=== PATIENT | female | born 1930 | race Caucasian/White ===

== ENCOUNTER 2017-08-12 17:34 | Emergency (ER) | payer MEDICARE ==
[~2017-08-12 17:34] MED LIST: AMIT25TA20 PO; AMLO5TAB96 PO; CALC600T34 PO; COZA100T PO; DIGO0.25 PO; FURO1TAB93 PO; HYDR-3533 PO; INSU100V2 SQ; NIAC500 PO; NOVONP2 SQ; OMEP20TA39 PO; PROBCAP4 PO; PROM25SU8 PO; RIVA20 PO; TAB-TAB PO
[2017-08-12 17:36] VITALS: BP 133/63; PULSE 66; RESP 18; TEMP 97.6; O2SAT 97
[2017-08-12] MEDS ORDERED: ROSU1TAB10 PO (17:45)
[2017-08-12] MEDS ORDERED: NOVONP2 SQ (17:45)
[2017-08-12] MEDS ORDERED: AMIT25TA9 PO (17:45)
[2017-08-12] MEDS ORDERED: LOSA50TA PO (17:45)
[2017-08-12] MEDS ORDERED: XARE15TA PO (17:45)
[2017-08-12] MEDS ORDERED: FURO20TA PO (17:45)
[2017-08-12] MEDS ORDERED: ASPI81CH7 CHEW (17:45)
[2017-08-12] MEDS ORDERED: FLUT1INH INH (17:45)
[2017-08-12 17:58] VITALS: BP 138/58; PULSE 87; RESP 18; O2SAT 100
[2017-08-12 18:06] VITALS: O2SAT 100
[2017-08-12] MEDS ORDERED: SODIUM CHLORIDE 0.9% FLUSH 10 ML FLUSH IV FLUSH PRN (18:15)
[2017-08-12] MEDS ORDERED: ONDANSETRON HCL 4 MG/2 ML VIAL IVP ONE (18:15)
[2017-08-12] MEDS ORDERED: DICYCLOMINE HCL 20 MG/2 ML VIAL IM ONE (18:15)
[2017-08-12 18:20] LABS: AUTOMATED NEUTROPHIL # 18.2 TH/MM3 (1.8-7.7); BASOPHIL # 0.2 TH/MM3 (0-0.2); BASOPHIL % 0.9 % (0.0-2.0); EOSINOPHIL # 0.2 TH/MM3 (0-0.4); HEMATOCRIT 28.5 % (35.0-46.0); LYMPH % 4.1 % (9.0-44.0); LYMPHOCYTE # 0.8 TH/MM3 (1.0-4.8); MEAN CELL VOLUME 86.5 FL (80.0-100.0); MEAN CORPUSCULAR HEMOGLOBIN 27.4 PG (27.0-34.0); MEAN CORPUSCULAR HGB CONC 31.7 % (32.0-36.0); MONO % 5.6 % (0.0-8.0); NEUT % 88.4 % (16.0-70.0); PLATELET COUNT 278 TH/MM3 (150-450); RED BLOOD COUNT 3.29 MIL/MM3 (4.00-5.30); RED CELL DISTRIBUTION WIDTH 15.6 % (11.6-17.2); WHITE BLOOD COUNT 20.6 TH/MM3 (4.0-11.0)
[2017-08-12 18:23] LABS: HEMO FLAGS DIFF FINAL
[2017-08-12 18:26] LABS: CHLORIDE 105 MEQ/L (98-107); POTASSIUM 3.8 MEQ/L (3.5-5.1); SODIUM (NA) 138 MEQ/L (136-145)
[2017-08-12 18:29] LABS: ANION GAP 10 MEQ/L (5-15); BICARBONATE 23.3 MEQ/L (21.0-32.0); BLOOD UREA NITROGEN 40 MG/DL (7-18)
[2017-08-12 18:32] LABS: ALT (GPT) 27 U/L (10-53); AST (GOT) 33 U/L (15-37); GLOMERULAR FILTRATION RATE 30 ML/MIN (>89)
[2017-08-12 18:34] LABS: TOTAL BILIRUBIN ADULT 0.4 MG/DL (0.2-1.0)
[2017-08-12 18:35] LABS: ALKALINE PHOSPHATASE 64 U/L (45-117)
[2017-08-12] MEDS ORDERED: METR-1 PO (18:50)
--- NOTE | 2017-08-12 18:51 | PD ---
HPI Chief Complaint: GI Complaint Time Seen by Provider: 18:01 Travel History International Travel<30 days: No Contact w/Intl Traveler<30days: No Traveled to known affect area: No History of Present Illness HPI The patient is 87 and arrives with nausea vomiting and diarrhea over the past 4 hours or so. The daughter provides some of the history and notes a history of C. difficile colitis and believes it might be similar. The patient denies fever. In the ER she denies abdominal pain shortness of breath chest pain. Diet has been normal lately. The patient underwent a aortic valve replacement about 6 weeks ago. Couple weeks thereafter she suffered a stroke and has had short-term memory loss since. PFSH Past Medical History Asthma: No Atrial Fibrillation: Yes Autoimmune Disease: No Blood Disorders: No Anxiety: No Depression: No Heart Rhythm Problems: Yes (A-FIB) Cancer: No Cardiomyopathy: Yes Cardiovascular Problems: Yes (A-FIB) High Cholesterol: Yes (HAD RHABDO) Chest Pain: No Congestive Heart Failure: Yes COPD: No Cerebrovascular Accident: Yes (R SIDED WEAKNESS) Diabetes: Yes (INSULIN ONLY) Diminished Hearing: No Endocrine: Yes GERD: No Genitourinary: Yes Headaches: No Hepatitis: No Hiatal Hernia: No Hypertension: Yes Immune Disorder: No Musculoskeletal: No Neurologic: Yes Psychiatric: No Reproductive: No Respiratory: No Migraines: No Myocardial Infarction: No Renal Failure: Yes Seizures: No Ulcer: No ?: Not : 3 Para: 3 Past Surgical History Abdominal Surgery: No Appendectomy: No Cardiac Surgery: No Cholecystectomy: No Endocrine Surgery: No Genitourinary Surgery: No Gynecologic Surgery: No Hysterectomy: Yes Thoracic Surgery: No Other Surgery: Yes (CYST REMOVAL) Social History Alcohol Use: Yes (OCC) Tobacco Use: No Substance Use: No Allergies-Medications (Allergen,Severity, Reaction): Coded Allergies: No Known Allergies (Verified Adverse Reaction, Unknown, 08/12/17) Reported Meds & Prescriptions Reported Meds & Active Scripts Active Flagyl (Metronidazole) 500 Mg Tab 500 Mg PO TID 14 Days Reported Rosuvastatin (Rosuvastatin Calcium) 40 Mg Tab 40 Mg PO DAILY Breo Ellipta Inh (Fluticasone/Vilanterol) 100-25 Mcg/Act Inh 1 Puff INH DAILY Use daily at the same time. Amitriptyline (Amitriptyline HCl) 25 Mg Tab 25 Mg PO HS Xarelto (Rivaroxaban) 15 Mg Tab 15 Mg PO DAILY Aspirin Children's (Aspirin) 81 Mg Chew 162 Mg CHEW DAILY Losartan (Losartan Potassium) 50 Mg Tab 50 Mg PO DAILY Novolin N Inj (Insulin Human NPH) 1,000 Unit/10 Ml Vial 36 Units SQ BID Furosemide 20 Mg Tab 20 Mg PO BID Review of Systems Except as stated in HPI: all other systems reviewed are Neg General / Constitutional: No: Fever Gastrointestinal: Positive: Nausea, Vomiting, Diarrhea Physical Exam Narrative GENERAL: 87-year-old female well-nourished well-developed mild distress SKIN: Focused skin assessment warm/dry. HEAD: Atraumatic. Normocephalic. EYES: Pupils equal and round. No scleral icterus. No injection or drainage. ENT: No nasal bleeding or discharge. Mucous membranes pink and moist. NECK: Trachea midline. No JVD. CARDIOVASCULAR: Regular rate and rhythm. No murmur appreciated. RESPIRATORY: No accessory muscle use. Clear to auscultation. Breath sounds equal bilaterally. GASTROINTESTINAL: Soft. No focus of tenderness. MUSCULOSKELETAL: No obvious deformities. No clubbing. No cyanosis. No edema. NEUROLOGICAL: Awake and alert. No obvious cranial nerve deficits. Motor grossly within normal limits. Normal speech. PSYCHIATRIC: Appropriate mood and affect; insight and judgment normal. Data Data Last Documented VS Vital Signs Date Time Temp Pulse Resp B/P (MAP) Pulse Ox O2 Delivery O2 Flow Rate FiO2 08/12/17 18:06 100 Nasal Cannula 2.00 08/12/17 17:58 87 18 08/12/17 17:36 97.6 Orders Orders Complete Blood Count With Diff (08/12/17 18:01) Comprehensive Metabolic Panel (08/12/17 18:01) Urinalysis - C+S If Indicated (08/12/17 18:01) Iv Access Insert/Monitor (08/12/17 18:01) Ecg Monitoring (08/12/17 18:01) Oximetry (08/12/17 18:01) Ondansetron Inj (Zofran Inj) (08/12/17 18:15) Sodium Chloride 0.9% Flush (Ns Flush) (08/12/17 18:15) Dicyclomine Inj (Bentyl Inj) (08/12/17 18:15) Ed Discharge Order (08/12/17 19:04) Labs Laboratory Tests Test 08/12/17 18:11 White Blood Count 20.6 TH/MM3 Red Blood Count 3.29 MIL/MM3 Hemoglobin 9.0 GM/DL Hematocrit 28.5 % Mean Corpuscular Volume 86.5 FL Mean Corpuscular Hemoglobin 27.4 PG Mean Corpuscular Hemoglobin Concent 31.7 % Red Cell Distribution Width 15.6 % Platelet Count 278 TH/MM3 Mean Platelet Volume 6.9 FL Neutrophils (%) (Auto) 88.4 % Lymphocytes (%) (Auto) 4.1 % Monocytes (%) (Auto) 5.6 % Eosinophils (%) (Auto) 1.0 % Basophils (%) (Auto) 0.9 % Neutrophils # (Auto) 18.2 TH/MM3 Lymphocytes # (Auto) 0.8 TH/MM3 Monocytes # (Auto) 1.2 TH/MM3 Eosinophils # (Auto) 0.2 TH/MM3 Basophils # (Auto) 0.2 TH/MM3 CBC Comment DIFF FINAL Differential Comment Blood Urea Nitrogen 40 MG/DL Creatinine 1.60 MG/DL Random Glucose 99 MG/DL Total Protein 7.2 GM/DL Albumin 3.5 GM/DL Calcium Level 8.3 MG/DL Alkaline Phosphatase 64 U/L Aspartate Amino Transf (AST/SGOT) 33 U/L Alanine Aminotransferase (ALT/SGPT) 27 U/L Total Bilirubin 0.4 MG/DL Sodium Level 138 MEQ/L Potassium Level 3.8 MEQ/L Chloride Level 105 MEQ/L Carbon Dioxide Level 23.3 MEQ/L Anion Gap 10 MEQ/L Estimat Glomerular Filtration Rate 30 ML/MIN MDM Medical Decision Making Medical Screen Exam Complete: Yes Emergency Medical Condition: Yes Medical Record Reviewed: Yes Differential Diagnosis Gastritis, pancreatitis, appendicitis, acute cholecystitis, ascending cholangitis, AAA, perforated viscous, mesenteric ischemia, hepatitis, cystitis, hydronephrosis/hydroureter/nephroureter calculus, mesenteric adenitis, biliary colic Narrative Course CBC & BMP Diagram 08/12/17 18:11 Total Protein 7.2, Albumin 3.5, Calcium Level 8.3 L, Alkaline Phosphatase 64, Aspartate Amino Transf (AST/SGOT) 33, Alanine Aminotransferase (ALT/SGPT) 27, Total Bilirubin 0.4 The patient appears really quite well. She prefers to go home and I think it is both safe in preferable to send the patient home. The patient could reflect a C. difficile colitis type picture however with a soft and nontender abdomen in the patient tolerating oral hydration without difficulty a trial of oral Flagyl is perfectly reasonable. We'll provide a course of Flagyl for 2 weeks. We discussed return precautions and the patient verbalized understanding along with and along with the patient's daughter. Diagnosis Primary Impression: Diarrhea Qualified Codes: R19.7 - Diarrhea, unspecified Referrals: Primary Care Physician call for appointment Additional Instructions: PLEASE FOLLOW UP WITH DR SMITH EARLY NEXT WEEK Med/Other Pt SpecificInfo: Prescription(s) given Scripts Metronidazole (Flagyl) 500 Mg Tab 500 MG PO TID for Infection for 14 Days, TAB 0 Refills Prov: Thierry Gamboa MD 08/12/17 Disposition: 01 DISCHARGE HOME Condition: Stable Thierry Gamboa MD Aug 12, 2017 18:51
[2017-08-12 19:00] VITALS: BP 144/59; PULSE 86; RESP 18; O2SAT 99
[2017-08-12] MEDS ORDERED: metroNIDAZOLE 500 MG TAB PO ONE (19:15)
== END 2017-08-12 19:16 | disposition home or self-care (01) ==
LOC: PHED 17:34
DX: R19.7 Diarrhea, unspecified (principal); E11.9 Type 2 diabetes mellitus without complications; E78.00 Pure hypercholesterolemia, unspecified; I11.0 Hypertensive heart disease with heart failure; I50.9 Heart failure, unspecified; I48.91 Unspecified atrial fibrillation; Z79.01 Long term (current) use of anticoagulants; Z95.2 Presence of prosthetic heart valve
CPT/HCPCS: 80053; 85025; 96372; 96374; 99284; J0500; J2405

== ENCOUNTER 2017-10-08 05:19 | Inpatient (IN) | payer MEDICARE ==
[2017-10-08] VITALS (37 sets, daily range): BP systolic 100–142; BP diastolic 47–76; PULSE 78–98; RESP 9–41; TEMP 98.4–100.2; O2SAT 85–99
[~2017-10-08] VITALS: Ht 165.1 cm; Wt 78.8 kg
[~2017-10-08 05:19] MED LIST changes: -AMIT25TA20 PO; +AMIT25TA9 PO; -AMLO5TAB96 PO; +ASPI81CH7 CHEW; -CALC600T34 PO; -COZA100T PO; -DIGO0.25 PO; +FLUT1INH INH; -FURO1TAB93 PO; +FURO20TA PO; -HYDR-3533 PO; -INSU100V2 SQ; +LOSA50TA PO; +METR-1 PO; -NIAC500 PO; -OMEP20TA39 PO; -PROBCAP4 PO; -PROM25SU8 PO; -RIVA20 PO; +ROSU1TAB10 PO; -TAB-TAB PO; +XARE15TA PO
[2017-10-08] MEDS ORDERED: CARV12.52 PO (05:31)
[2017-10-08] MEDS ORDERED: APIX2.5T PO (05:31)
[2017-10-08] MEDS ORDERED: VITA250T3 PO (05:32)
[2017-10-08] MEDS ORDERED: SODIUM CHLORIDE 0.9% FLUSH 10 ML FLUSH IVF PRN (05:45)
[2017-10-08] MEDS ORDERED: SODIUM CHLOR 0.9% 1000 ML INJ 1,000 ML IV ONE ×2 (05:45→06:30)
[2017-10-08] MEDS ORDERED: ONDANSETRON HCL 4 MG/2 ML VIAL IV PUSH ONE ×2 (05:45)
[2017-10-08 05:58] LABS: AUTOMATED NEUTROPHIL # 23.3 TH/MM3 (1.8-7.7); BASOPHIL # 0.6 TH/MM3 (0-0.2); BASOPHIL % 2.3 % (0.0-2.0); EOSINOPHIL % 0.1 % (0.0-4.0); HEMOGLOBIN 10.9 GM/DL (11.6-15.3); LYMPH % 3.2 % (9.0-44.0); LYMPHOCYTE # 0.9 TH/MM3 (1.0-4.8); MEAN CELL VOLUME 78.6 FL (80.0-100.0); MEAN CORPUSCULAR HEMOGLOBIN 24.5 PG (27.0-34.0); MEAN CORPUSCULAR HGB CONC 31.2 % (32.0-36.0); MEAN PLATELET VOLUME 7.4 FL (7.0-11.0); MONO % 7.9 % (0.0-8.0); MONOCYTE # 2.1 TH/MM3 (0-0.9); NEUT % 86.5 % (16.0-70.0); PLATELET COUNT 288 TH/MM3 (150-450); RED BLOOD COUNT 4.46 MIL/MM3 (4.00-5.30); RED CELL DISTRIBUTION WIDTH 17.9 % (11.6-17.2); WHITE BLOOD COUNT 26.9 TH/MM3 (4.0-11.0)
--- NOTE | 2017-10-08 06:01 | PD ---
HPI Chief Complaint: GI Complaint Time Seen by Provider: 05:37 Travel History International Travel<30 days: No Contact w/Intl Traveler<30days: No Traveled to known affect area: No History of Present Illness HPI 87-year-old female presents to the emergency department by private Transportation the care of family for generalized weakness nausea and diarrhea. Patient also has been experiencing shaking chills since yesterday. Shaking chills are intermittent. and patient states they've not been able to identify fever using home thermometer. Patient recently completed a course of Cipro approximately one week ago. Patient and family do not know why she was on antibiotic. Patient has been treated for C. difficile in the recent past and was on Flagyl for completed this as well. Patient states that 3 days ago symptoms began as generalized weakness poor oral intake and then developed nausea vomiting and diarrhea. No hematemesis no coffee-ground emesis no melena no hematochezia no bilious emesis per report. Patient's continued to have good urine output reportedly. Patient is diabetic. states patient stopped eating yesterday and has had difficulty getting the patient did take oral hydration this morning. Patient's last insulin was on Tuesday in the morning as much as he can recall. Patient also has history of CVA and has memory disturbance therefore much of the history is provided by the spouse the patient has difficulty with memory and right sided weakness residua. Patient is currently on Eliquis and also has history of atrial fibrillation. No dietary indiscretion, no well water ingestion, no foreign travel. PFSH Past Medical History Narrative Medical cva, copd, chf, tavr, afib, cardiomyopathy, dm, dyslipidemia, restless leg syndrome, hysterectomy, occ alcohol use; nursing notes reviewed; Dr Branch, Dr Jiang, Dr Redd Asthma: No Atrial Fibrillation: Yes Autoimmune Disease: No Blood Disorders: No Anxiety: No Depression: No Heart Rhythm Problems: Yes (A-FIB) Cancer: No Cardiomyopathy: Yes Cardiovascular Problems: Yes (A-FIB) High Cholesterol: Yes (HAD RHABDO) Chest Pain: No Congestive Heart Failure: Yes COPD: No Cerebrovascular Accident: Yes (R SIDED WEAKNESS) Diabetes: Yes (INSULIN ONLY) Patient Takes Glucophage: No Diminished Hearing: No Endocrine: Yes GERD: No Genitourinary: Yes Headaches: No Hepatitis: No Hiatal Hernia: No Hypertension: Yes Immune Disorder: No Musculoskeletal: No Neurologic: Yes Psychiatric: No Reproductive: No Respiratory: No Migraines: No Myocardial Infarction: No Renal Failure: Yes Seizures: No Ulcer: No Tetanus Vaccination: < 5 Years Influenza Vaccination: Yes ?: Not : 3 Para: 3 Past Surgical History Abdominal Surgery: No Appendectomy: No Cardiac Surgery: No Cholecystectomy: No Endocrine Surgery: No Genitourinary Surgery: No Gynecologic Surgery: No Hysterectomy: Yes Thoracic Surgery: No Other Surgery: Yes (CYST REMOVAL) Social History Alcohol Use: Yes (OCC) Tobacco Use: No Substance Use: No Allergies-Medications (Allergen,Severity, Reaction): Coded Allergies: No Known Allergies (Verified Adverse Reaction, Unknown, 10/08/17) Reported Meds & Prescriptions Reported Meds & Active Scripts Active Reported Novolin N Inj (Insulin Human NPH) 1,000 Unit/10 Ml Vial 30 Units SQ BID Vitamin C (Ascorbic Acid) 250 Mg Tab 1,000 Mg PO Eliquis (Apixaban) 2.5 Mg Tab 2.5 Mg PO BID Carvedilol 12.5 Mg Tab 12.5 Mg PO BID Breo Ellipta Inh (Fluticasone/Vilanterol) 100-25 Mcg/Act Inh 1 Puff INH DAILY Use daily at the same time. Aspirin Children's (Aspirin) 81 Mg Chew 162 Mg CHEW DAILY Furosemide 20 Mg Tab 20 Mg PO BID Review of Systems Except as stated in HPI: all other systems reviewed are Neg General / Constitutional: Positive: Chills, No: Fever HENT: No: Congestion Cardiovascular: No: Chest Pain or Discomfort Respiratory: No: Shortness of Breath Gastrointestinal: Positive: Nausea, Diarrhea, No: Vomiting, Abdominal Pain Genitourinary: No: Dysuria, Flank Pain Musculoskeletal: No: Myalgias, Arthralgias, Cramping, Edema Skin: No Rash Neurologic: Positive: Weakness, Dizziness, No: Syncope, Focal Abnormalities, Coordination Problem Psychiatric: No: Anxiety Hematologic/Lymphatic: No: Lymph Node Enlargement Physical Exam Narrative GENERAL: SKIN: Warm and dry. HEAD: Normocephalic. EYES: No scleral icterus. No injection or drainage. NECK: Supple, trachea midline. No JVD or lymphadenopathy. CARDIOVASCULAR: Regular rate and rhythm without murmurs, gallops, or rubs. RESPIRATORY: Breath sounds equal bilaterally. No accessory muscle use. GASTROINTESTINAL: Abdomen soft, non-tender, nondistended. MUSCULOSKELETAL: No cyanosis, or edema. BACK: Nontender without obvious deformity. No CVA tenderness. Data Data Last Documented VS Vital Signs Date Time Temp Pulse Resp B/P (MAP) Pulse Ox O2 Delivery O2 Flow Rate FiO2 10/08/17 05:43 99 Nasal Cannula 2.00 10/08/17 05:32 98.9 97 18 138/67 (90) Orders Orders Electrocardiogram (10/08/17 05:37) Complete Blood Count With Diff (10/08/17 05:37) Comprehensive Metabolic Panel (10/08/17 05:37) Magnesium (Mg) (10/08/17 05:37) Beta Hydroxybutyrate (Acetone) (10/08/17 05:37) Lactic Acid (10/08/17 05:37) Urinalysis - C+S If Indicated (10/08/17 05:37) Blood Culture (10/08/17 05:37) Chest, Single Ap (10/08/17 05:37) Blood Glucose (10/08/17 05:37) Ecg Monitoring (10/08/17 05:37) Iv Access Insert/Monitor (10/08/17 05:37) Oximetry (10/08/17 05:37) NPO (10/08/17 05:37) Sodium Chloride 0.9% Flush (Ns Flush) (10/08/17 05:45) Troponin I (10/08/17 05:37) Lipase (10/08/17 05:37) Ondansetron Inj (Zofran Inj) (10/08/17 05:45) Ondansetron Inj (Zofran Inj) (10/08/17 05:45) Sodium Chlor 0.9% 1000 Ml Inj (Ns 1000 M (10/08/17 05:45) C Diff Toxin Pcr (10/08/17 05:37) Enteric Path (Stool) (10/08/17 05:37) Labs Laboratory Tests Test 10/08/17 05:30 White Blood Count 26.9 TH/MM3 Red Blood Count 4.46 MIL/MM3 Hemoglobin 10.9 GM/DL Hematocrit 35.0 % Mean Corpuscular Volume 78.6 FL Mean Corpuscular Hemoglobin 24.5 PG Mean Corpuscular Hemoglobin Concent 31.2 % Red Cell Distribution Width 17.9 % Platelet Count 288 TH/MM3 Mean Platelet Volume 7.4 FL Neutrophils (%) (Auto) 86.5 % Lymphocytes (%) (Auto) 3.2 % Monocytes (%) (Auto) 7.9 % Eosinophils (%) (Auto) 0.1 % Basophils (%) (Auto) 2.3 % Neutrophils # (Auto) 23.3 TH/MM3 Lymphocytes # (Auto) 0.9 TH/MM3 Monocytes # (Auto) 2.1 TH/MM3 Eosinophils # (Auto) 0.0 TH/MM3 Basophils # (Auto) 0.6 TH/MM3 CBC Comment AUTO DIFF Differential Total Cells Counted 100 Neutrophils % (Manual) 79 % Band Neutrophils % 11 % Lymphocytes % 4 % Monocytes % 6 % Neutrophils # (Manual) 24.2 TH/MM3 Differential Comment FINAL DIFF MANUAL Platelet Estimate NORMAL Platelet Morphology Comment NORMAL Ovalocytes 1+ Blood Urea Nitrogen 23 MG/DL Creatinine 1.40 MG/DL Random Glucose 75 MG/DL Total Protein 7.5 GM/DL Albumin 3.1 GM/DL Calcium Level 8.5 MG/DL Magnesium Level 1.8 MG/DL Alkaline Phosphatase 61 U/L Aspartate Amino Transf (AST/SGOT) 38 U/L Alanine Aminotransferase (ALT/SGPT) 22 U/L Total Bilirubin 0.5 MG/DL Sodium Level 137 MEQ/L Potassium Level 3.6 MEQ/L Chloride Level 101 MEQ/L Carbon Dioxide Level 25.8 MEQ/L Anion Gap 10 MEQ/L Estimat Glomerular Filtration Rate 36 ML/MIN Lactic Acid Level 2.7 mmol/L Troponin I 0.37 NG/ML Lipase 170 U/L B-Hydroxybutyrate 0.21 MMOL/L MDM Medical Decision Making Medical Screen Exam Complete: Yes Emergency Medical Condition: Yes Medical Record Reviewed: Yes Interpretation(s) CBC & BMP Diagram 10/08/17 05:30 Total Protein 7.5, Albumin 3.1 L, Calcium Level 8.5, Magnesium Level 1.8, Alkaline Phosphatase 61, Aspartate Amino Transf (AST/SGOT) 38 H, Alanine Aminotransferase (ALT/SGPT) 22, Total Bilirubin 0.5 Vital Signs Date Time Temp Pulse Resp B/P (MAP) Pulse Ox O2 Delivery O2 Flow Rate FiO2 10/08/17 05:43 99 Nasal Cannula 2.00 10/08/17 05:32 98.9 97 18 138/67 (90) 99 EKG: atrial fibrillation rate [address] elevation, no priors since 2013 ( patient and family report heart problems since June) lactic acid: 2.7; BHB: 0.21, not elevated troponin I: 0.37, elevated Differential Diagnosis Arrhythmia, electrolyte disturbance, uncontrolled diabetes, hyperosmolar hyperglycemia, unlikely DKA, ACS, CT, sepsis, UTI, pneumonia, gastroenteritis, food poisoning Narrative Course Patient placed on registered nurse cardiac and continuous pulse oximetry IV access obtained EKG performed IV access obtained specimens collected and sent for resulting patient administered bolus of normal saline 500 cc IV antibiotics administered Stool specimen collected; Hemoccult negative Catheter specimen urine ordered White count 26,000 with left shift 11% bands elevated lactic acid with right lower quadrant abdominal pain and heart rate greater than 90 upon arrival patient meets sepsis criteria and EKG atrial fibrillation with controlled with left bundle branch block age indeterminate and troponin I of 0.37 concerning for possible non-STEMI patient states she's had no chest pain no shortness of breath no sweats nausea has resolved after Zofran patient presented with nausea no vomiting and multiple episodes of diarrhea. CT abdomen and pelvis performed noncontrast Urinalysis pending Patient's case discussed in detail with etl lead will admit to his service to the ICU for ongoing IV antibiotics serial cardiac enzymes patient is currently on Eliquis Sepsis Criteria SIRS Criteria (2 or more): Heart rate over 90, WBC > 26532, < 4000 or > 10% bands Sepsis Criteria (SIRS+source): Infect source susp/known (abdominal) Physician Communication Physician Communication call placed to etl lead Diagnosis Primary Impression: Sepsis Qualified Codes: A41.9 - Sepsis, unspecified organism Additional Impressions: Diarrhea in adult patient Elevated troponin I level Non-ST elevation CT (NSTEMI) Diverticulitis Admitting Information Admitting Physician Requests: Admit Yanique Chauhan MD Oct 08, 2017 06:01
[2017-10-08 06:06] LABS: CHLORIDE 101 MEQ/L (98-107); SODIUM (NA) 137 MEQ/L (136-145)
[2017-10-08 06:09] LABS: CALCIUM 8.5 MG/DL (8.5-10.1)
[2017-10-08 06:10] LABS: ALBUMIN 3.1 GM/DL (3.4-5.0); BICARBONATE 25.8 MEQ/L (21.0-32.0); BLOOD UREA NITROGEN 23 MG/DL (7-18); GLUCOSE,RANDOM 75 MG/DL (74-106); LIPASE 170 U/L (73-393); MAGNESIUM 1.8 MG/DL (1.5-2.5)
[2017-10-08 06:13] LABS: ALT (GPT) 22 U/L (10-53); AST (GOT) 38 U/L (15-37); GLOMERULAR FILTRATION RATE 36 ML/MIN (>89)
[2017-10-08 06:14] LABS: TOTAL BILIRUBIN ADULT 0.5 MG/DL (0.2-1.0)
[2017-10-08 06:15] LABS: TOTAL PROTEIN 7.5 GM/DL (6.4-8.2)
[2017-10-08 06:16] LABS: ALKALINE PHOSPHATASE 61 U/L (45-117)
[2017-10-08 06:18] LABS: TROPONIN I 0.37 NG/ML (0.02-0.05)
[2017-10-08 06:25] LABS: BANDS 11 % (0-6); LYMPHOCYTES 4 % (9-44); MONOCYTES 6 % (0-8); NEUTROPHIL # MANUAL DIFF 24.2 TH/MM3 (1.8-7.7); POLYS (SEG NEUTROPHILS) 79 % (16-70)
[2017-10-08 06:26] LABS: OVALOCYTES 1+ (NORMAL)
[2017-10-08] MEDS ORDERED: VANCOMYCIN INJ 1,000 MG in SODIUM CHLOR 0.9% 250 ML INJ 250 ML IV ONE (06:30)
[2017-10-08] MEDS ORDERED: PIPERACIL-TAZO 4.5 GM PREMIX 100 ML IV ONE (06:30)
[2017-10-08] MEDS ORDERED: SODIUM CHLORID 0.9% 500 ML INJ 500 ML IV ONE ×2 (06:30)
[2017-10-08] MEDS ORDERED: NOVONP2 SQ (06:40)
--- NOTE | 2017-10-08 06:47 | RADRPT ---
EXAM DATE/TIME: 10/08/2017 06:34 [facility] COMPARISON: No previous studies available for comparison. INDICATIONS : Shortness of breath. MEDICAL HISTORY : None. SURGICAL HISTORY : None. ENCOUNTER: Initial ACUITY: 2 days PAIN SCORE: 4/10 LOCATION: Bilateral chest FINDINGS: Diffuse soft tissue prominence without significant focal pleural or precarinal opacities. Cardiac roxy houette is mildly enlarged. There is a valvular aortic stent in place. Osseous structures are intact. CONCLUSION: 1. Mild cardiomegaly with mild positive fluid balance. Hubert Dickens MD on October 08, 2017 at 6:44 Board Certified Radiologist. This report was verified electronically.
--- NOTE | 2017-10-08 07:30 | RADRPT ---
EXAM DATE/TIME: 10/08/2017 06:54 [facility] COMPARISON: CHEST SINGLE AP, October 08, 2017, 6:34. INDICATIONS : Nausea and vomiting since yesterday. ORAL CONTRAST: No oral contrast ingested. RADIATION DOSE: 15.67 CTDIvol (mGy) MEDICAL HISTORY : Cardiovascular disease. Diabetes mellitus type 2. Renal failure, chronic.HTN, AFIB SURGICAL HISTORY : Hysterectomy. Hx of pelvic fx as a child ENCOUNTER: Initial ACUITY: 2 days PAIN SCALE: 5/10 LOCATION: abdomen TECHNIQUE: Volumetric scanning of the abdomen and pelvis was performed. Using automated exposure control and ad justment of the mA and/or kV according to patient size, radiation dose was kept as low as reasonably achievable to obtain optimal diagnostic quality images. DICOM format image data is available electro nically for review and comparison. FINDINGS: CT Abdomen: The liver, spleen, pancreas, kidneys, adrenals are unremarkable. There is no evidence for any appreciable pathological adenopathy, free fluid, or bowel obstruction. Slight chronic interstit ial lung disease is seen in both lung bases. Chronic vascular calcifications are present involving th e aorta, iliac arteries without any significant stenosis or aneurysmal dilatations for technique. The re may be a small sliding hiatal hernia. Small left pleural effusion is seen. CT pelvis: There is questionable 2 cm mass versus prominent ileocecal valve in the region of the cecu m. There is no evidence for abscess formation, or any significant adenopathy within the pelvis. There are diverticuli in the sigmoid colon and haziness surrounding the sigmoid colon most likely a mild c ase of acute diverticulitis.. Approximate 2.7 cm lipoma is present in the right psoas muscle at the l evel of the hip. There are degenerative changes and possible bulging discs in the lower lumbosacral s pine not adequately characterized either gas bubbles in the right L5-S1 lateral recess due to degener ative change and/or small disc protrusion. There is lumbar scoliosis convexity towards the left. CONCLUSION: Possible mild case of acute diverticulitis. Maria Elena Dalal MD on October 08, 2017 at 7:21 Board Certified Radiologist. This report was verified electronically.
[2017-10-08 07:41] LABS: BILIRUBIN, URINE NEG (NEG); BLOOD, URINE NEG (NEG); GLUCOSE,URINE NEG (NEG); KETONE, URINE NEG (NEG); NITRITE,URINE POS (NEG); URINE LEUKOCYTE ESTERASE TRACE (NEG)
[2017-10-08 07:48] LABS: URINE COLOR YELLOW (YELLW/STRAW)
[2017-10-08 07:49] LABS: BACTERIA, URINE MANY /hpf; RBC, URINE 0-3 /hpf (0-3); WHITE BLOOD CELL CLUMPS MANY
[2017-10-08] MEDS ORDERED: CHLORHEXIDINE GLUCONATE 2 % 1 PACK (2 CLOTHS) TOP PRN (08:30)
[2017-10-08] MEDS ORDERED: GLUCAGON 1 MG/ML VIAL OTHER PRN (08:30)
[2017-10-08] MEDS ORDERED: MISCELLANEOUS NURSING INFORMATION XX SCH (08:30)
[2017-10-08] MEDS ORDERED: SODIUM CHLORIDE 0.9% FLUSH 10 ML FLUSH IV FLUSH PRN (08:30)
[2017-10-08] MEDS ORDERED: DEXTROSE 50% IN WATER 50 ML VIAL(D50) IV PUSH PRN (08:30)
[2017-10-08] MEDS ORDERED: MAGNESIUM HYDROXIDE SUSP 30 ML CUP PO PRN (09:00)
[2017-10-08] MEDS ORDERED: SENNOSIDES 8.6 MG TAB PO PRN (09:00)
[2017-10-08] MEDS ORDERED: ACETAMINOPHEN 325 MG TAB PO PRN (09:00)
[2017-10-08] MEDS: SODIUM CHLORIDE 0.9% FLUSH 10 ML FLUSH IV FLUSH SCH ×2 (09:00→20:31)
[2017-10-08] MEDS ORDERED: metroNIDAZOLE 500 MG TAB PO SCH (09:00)
[2017-10-08] MEDS ORDERED: BISACODYL 10 MG SUPP RECTAL PRN (09:00)
[2017-10-08] MEDS ORDERED: LACTULOSE SYRUP 20 GM/30 ML CUP PO PRN (09:00)
[2017-10-08] MEDS ORDERED: ACETAMINOPHEN/HYDROcodone 325 MG/5 MG TAB PO PRN (09:00)
[2017-10-08] MEDS: SODIUM CHLOR 0.9% 1000 ML INJ 1,000 ML IV SCH ×2 (09:38→20:06)
[2017-10-08] MEDS: PIPERACIL-TAZO 3.375 GM PREMIX 50 ML IV SCH ×2 (09:39→17:32)
[2017-10-08] MEDS: FAMOTIDINE 20 MG TAB PO SCH ×2 (09:39→20:31)
[2017-10-08] MEDS: ASPIRIN EC 81 MG TABEC PO SCH (09:39)
[2017-10-08 09:59] LABS: INTERNATIONAL NORMALIZED RATIO 1.2 RATIO
[2017-10-08] MEDS ORDERED: RESP: ALBUTEROL 2.5 MG/IPRATROPIUM 0.5 MG NEB (PRN) INH (10:00)
[2017-10-08] MEDS: RESP: ALBUTEROL 2.5 MG/IPRATROPIUM 0.5 MG NEB (SCH) INH ×3 (10:15→20:06)
--- NOTE | 2017-10-08 11:46 | HHI.HP ---
[facility] Service Critical Care Medicine Primary Care Physician Phi Branch M.D. Admission Diagnosis sepsis; diarrheal illness; elevated troponin I/nstemi; DM Diagnosis: (1) Severe sepsis Diagnosis: Principal (2) Diverticulitis Diagnosis: Principal (3) Urinary tract infection Diagnosis: Principal (4) Diarrhea in adult patient Diagnosis: Principal (5) Lactic acid acidosis Diagnosis: Principal (6) Leukocytosis Diagnosis: Principal (7) Bandemia Diagnosis: Principal (8) Non-ST elevated myocardial infarction Diagnosis: Principal (9) Elevated troponin I level Diagnosis: Principal (10) Atrial fibrillation Diagnosis: Principal Chief Complaint: Generalized weakness, diarrhea Travel History International Travel<30 Days: No Contact w/Intl Traveler <30 Da: No Traveled to Known Affected Are: No Sepsis Criteria SIRS Criteria (2 or more): Heart rate over 90, WBC > 51207, < 4000 or > 10% bands Sepsis Criteria (SIRS+source): Infect source susp/known Severe Sepsis (+one): Lactate >2 Criteria Outcome: Meets severe sepsis criteria History of Present Illness This is a 87-year-old female with rather extensive history of hypertension, hyperlipidemia, atrial fibrillation, history of CHF, chronic hypoxic respiratory requiring 2 L nasal cannula at home, chronic kidney disease stage III, diabetes who presented to hospital because of chills, fatigue, nausea , diarrhea. Is indicated that recently she had finished a course of Cipro antibiotic but does not know why she was on it. There has been history of clostridium difficile infection in the past. Patient indicates that her symptoms have started proximal to 3 days ago with generalized weakness poor by mouth intake, nausea, diarrhea. There is no episodes of any hematemesis, coffee -ground emesis. Upon evaluating patient in emergency department she is having significant diarrhea. She had to get out of bed 2 times in order to have a bowel movement while I was examining her. Patient does indicate that she has only had nausea, she denies any vomiting. Upon presentation she did have O2 saturation 85% on room air. She does have chronic respiratory failure which she is on oxygen at home. They placed on 2 L nasal cannula in O2 saturation with back up to 95%. Workup did indicate severe sepsis with leukocytosis with bandemia. Infectious source are multi-factorial with diverticulitis and urinary tract infection. Workup also indicates non-ST elevated myocardial infarction with elevated troponin, EKG showed atrial fibrillation with possible left bundle branch block. ER physician recommended patient be admitted to ICU with critical care management. Review of Systems Constitutional: COMPLAINS OF: Chills, DENIES: Diaphoretic episodes, Fatigue, Fever, Weight gain, Weight loss, Dizziness, Change in appetite, Night Sweats Eyes: DENIES: Blurred vision, Diplopia, Eye inflammation, Eye pain, Vision loss , Double Vision Ears, nose, mouth, throat: DENIES: Hearing loss, Vertigo, Nasal discharge, Throat pain, Ear Pain, Running Nose, Sinus Pain, Toothache Respiratory: DENIES: Apneas, Cough, Snoring, Wheezing, Hemoptysis, Sputum production, Shortness of breath Cardiovascular: DENIES: Chest pain, Palpitations, Syncope, Dyspnea on Exertion , Lower Extremity Edema, Orthopnea Gastrointestinal: COMPLAINS OF: Diarrhea, Nausea, DENIES: Abdominal pain, Black stools, Bloody stools, Constipation, Vomiting, Difficulty Swallowing, Anorexia Neurologic: DENIES: Abnormal gait, Headache, Localized weakness, Paresthesias, Seizures, Speech Problems, Tremor, Poor Balance Past Family Social History Allergies: Coded Allergies: ropinirole (Verified Allergy, Severe, Anaphylaxis, 10/08/17) Past Medical History Atrial fibrillation Hypertension Hyperlipidemia History of congestive heart failure Insulin-dependent diabetes History CVA with right-sided weakness Chronic kidney disease stage III Chronic hypoxic respiratory failure on 2 L home oxygen Past Surgical History Hysterectomy Pelvic fracture repair as a child Reported Medications Reported Meds & Active Scripts Active Reported Novolin N Inj (Insulin Human NPH) 1,000 Unit/10 Ml Vial 30 Units SQ BID Vitamin C (Ascorbic Acid) 250 Mg Tab 1,000 Mg PO Eliquis (Apixaban) 2.5 Mg Tab 2.5 Mg PO BID Carvedilol 12.5 Mg Tab 12.5 Mg PO BID Breo Ellipta Inh (Fluticasone/Vilanterol) 100-25 Mcg/Act Inh 1 Puff INH DAILY Use daily at the same time. Aspirin Children's (Aspirin) 81 Mg Chew 162 Mg CHEW DAILY Furosemide 20 Mg Tab 20 Mg PO BID Family History Reviewed is significant for family history of hypertension, glaucoma, stroke. Social History No indication of any tobacco, alcohol or illicit drug use Physical Exam Vital Signs Vital Signs Date Time Temp Pulse Resp B/P (MAP) Pulse Ox O2 Delivery O2 Flow Rate FiO2 10/08/17 10:00 84 20 128/57 (80) 10/08/17 10:00 84 10/08/17 09:00 86 21 118/57 (77) 10/08/17 08:53 97 Nasal Cannula 2.00 10/08/17 08:45 98 10/08/17 08:31 88 19 126/60 (82) 96 10/08/17 08:30 10/08/17 07:33 92 16 104/47 (66) 85 2.00 10/08/17 06:22 89 20 100/51 (67) 99 Nasal Cannula 2.00 10/08/17 05:43 99 Nasal Cannula 2.00 10/08/17 05:32 98.9 97 18 138/67 (90) 99 Physical Exam GENERAL: Well-developed, well-nourished, in no acute distress. alert and orientated HEENT: Head is normocephalic without any lesions or masses noted. Facial features are symmetric. Eyes: Pupils equal round reactive to light. Extraocular muscles are intact. Conjunctivae were clear. Oropharyngeal: Pharynx without any erythema edema. Tongue is midline without deviation. Buccal mucosa is moist without any masses or lesions NECK: Supple without any masses. Trachea midline no deviation. No JVD, no bruits are appreciated CARDIAC: Regular rhythm, regular rate. S1/S2 are heard. No murmurs gallops or rubs. LUNGS: Clear to auscultation bilaterally. No wheeze, rhonchi or rales. No use of accessory muscles on inspiration or expiration. ABDOMEN: Soft, nontender. Nondistended. Bowel sounds heard in all 4 quadrants. No organomegaly or masses. Negative rebound, negative guarding EXTREMITIES: No edema, pulses are equal bilaterally. No cyanosis or clubbing NEUROLOGY: Mood and affect appear appropriate. Cranial nerves II through XII grossly intact. Muscle strength 5/5 in left upper upper and lower extremities. 4/5 muscle strength in right upper extremity. Deep tendon reflexes are 2+ in upper and lower extremities bilaterally. Laboratory Laboratory Tests Test 10/08/17 05:30 10/08/17 06:13 10/08/17 07:28 10/08/17 09:20 White Blood Count 26.9 Red Blood Count 4.46 Hemoglobin 10.9 Hematocrit 35.0 Mean Corpuscular Volume 78.6 Mean Corpuscular Hemoglobin 24.5 Mean Corpuscular Hemoglobin Concent 31.2 Red Cell Distribution Width 17.9 Platelet Count 288 Mean Platelet Volume 7.4 Neutrophils (%) (Auto) 86.5 Lymphocytes (%) (Auto) 3.2 Monocytes (%) (Auto) 7.9 Eosinophils (%) (Auto) 0.1 Basophils (%) (Auto) 2.3 Neutrophils # (Auto) 23.3 Lymphocytes # (Auto) 0.9 Monocytes # (Auto) 2.1 Eosinophils # (Auto) 0.0 Basophils # (Auto) 0.6 CBC Comment AUTO DIFF Differential Total Cells Counted 100 Neutrophils % (Manual) 79 Band Neutrophils % 11 Lymphocytes % 4 Monocytes % 6 Neutrophils # (Manual) 24.2 Differential Comment FINAL DIFF MANUAL Platelet Estimate NORMAL Platelet Morphology Comment NORMAL Ovalocytes 1+ Blood Urea Nitrogen 23 Creatinine 1.40 Random Glucose 75 Total Protein 7.5 Albumin 3.1 Calcium Level 8.5 Magnesium Level 1.8 Alkaline Phosphatase 61 Aspartate Amino Transf (AST/SGOT) 38 Alanine Aminotransferase (ALT/SGPT) 22 Total Bilirubin 0.5 Sodium Level 137 Potassium Level 3.6 Chloride Level 101 Carbon Dioxide Level 25.8 Anion Gap 10 Estimat Glomerular Filtration Rate 36 Lactic Acid Level 2.7 Phosphorus Level 4.3 Troponin I 0.37 Lipase 170 B-Hydroxybutyrate 0.21 Urine Collection Type CLEAN CATCH Urine Color YELLOW Urine Turbidity CLEAR Urine pH 6.0 Urine Specific [place] 1.017 Urine Protein TRACE Urine Glucose (UA) NEG Urine Ketones NEG Urine Occult Blood NEG Urine Nitrite POS Urine Bilirubin NEG Urine Leukocyte Esterase TRACE Urine RBC 0-3 Urine WBC 25-49 Urine WBC Clumps MANY Urine Bacteria MANY Microscopic Urinalysis Comment CULTURE INDICATED Test 10/08/17 09:22 Prothrombin Time 12.0 Prothromb Time International Ratio 1.2 Activated Partial Thromboplast Time 30.5 Lactic Acid Level 1.1 Date/Time Source Procedure Growth Status 10/08/17 05:36 Blood Peripheral Aerobic Blood Culture Pending Received 10/08/17 05:36 Blood Peripheral Anaerobic Blood Culture Pending Received 10/08/17 06:13 Stool Stool Pending Received 10/08/17 07:28 Urine Catheterized Urine Urine Culture Pending Received Result Diagram: 10/08/17 0530 10/08/17 0530 Imaging Last Impressions Chest X-Ray 10/08/17 0537 Signed Impressions: Service Date/Time: Sunday, October 08, 2017 06:34 - CONCLUSION: 1. Mild cardiomegaly with mild positive fluid balance. Hubert Dickens MD Abdomen/Pelvis CT 10/08/17 0000 Signed Impressions: Service Date/Time: Sunday, October 08, 2017 06:54 - CONCLUSION: Possible mild case of acute diverticulitis. Maria Elena Dalal MD Septic Shock Reassessment Septic shock perfusion: reassessment completed Caprini VTE Risk Assessment Caprini VTE Risk Assessment: Mod/High Risk (score >= 2) Caprini Risk Assessment Model Point Value = 1 Point Value = 2 Point Value = 3 Point Value = 5 Age 41-60 Minor surgery BMI > 25 kg/m2 Swollen legs Varicose veins or History of unexplained or recurrent spontaneous Oral contraceptives or hormone replacement Sepsis (< 1 month) Serious lung disease, including pneumonia (< 1 month) Abnormal pulmonary function Acute myocardial infarction Congestive heart failure (< 1 month) History of inflammatory bowel disease Medical patient at bed rest Age 61-74 Arthroscopic surgery Major open surgery (> 45 min) Laparoscopic surgery (> 45 min) Malignancy Confined to bed (> 72 hours) Immobilizing plaster cast Central venous access Age >= 75 History of VTE Family history of VTE Factor V Leiden Prothrombin [id number] Lupus anticoagulant Anticardiolipin antibodies Elevated serum homocysteine Heparin-induced thrombocytopenia Other congenital or acquired thrombophilia Stroke (< 1 month) Elective arthroplasty Hip, pelvis, or leg fracture Acute spinal cord injury (< 1 month) Prophylaxis Regimen Total Risk Factor Score Risk Level Prophylaxis Regimen 0-1 Low Early ambulation 2 Moderate Order ONE of the following: *Sequential Compression Device (SCD) *Heparin 5000 units SQ BID 3-4 Higher Order ONE of the following medications: *Heparin 5000 units SQ TID *Enoxaparin/Lovenox 40 mg SQ daily (WT < 150 kg, CrCl > 30 mL/min) *Enoxaparin/Lovenox 30 mg SQ daily (WT < 150 kg, CrCl > 10-29 mL/min) *Enoxaparin/Lovenox 30 mg SQ BID (WT < 150 kg, CrCl > 30 mL/min) AND/OR *Sequential Compression Device (SCD) 5 or more Highest Order ONE of the following medications: *Heparin 5000 units SQ TID (Preferred with Epidurals) *Enoxaparin/Lovenox 40 mg SQ daily (WT < 150 kg, CrCl > 30 mL/min) *Enoxaparin/Lovenox 30 mg SQ daily (WT < 150 kg, CrCl > 10-29 mL/min) *Enoxaparin/Lovenox 30 mg SQ BID (WT < 150 kg, CrCl > 30 mL/min) AND *Sequential Compression Device (SCD) Assessment and Plan Problem List: (1) Severe sepsis ICD Code: A41.9 - Sepsis, unspecified organism; R65.20 - Severe sepsis without septic shock (2) Diverticulitis ICD Code: K57.92 - Diverticulitis of intestine, part unspecified, without perforation or abscess without bleeding (3) Urinary tract infection ICD Code: N39.0 - Urinary tract infection, site not specified (4) Diarrhea in adult patient ICD Code: R19.7 - Diarrhea, unspecified Status: Acute (5) Lactic acid acidosis ICD Code: E87.2 - Acidosis (6) Leukocytosis ICD Code: D72.829 - Elevated white blood cell count, unspecified (7) Bandemia ICD Code: D72.825 - Bandemia (8) Non-ST elevated myocardial infarction ICD Code: I21.4 - Non-ST elevation (NSTEMI) myocardial infarction (9) Elevated troponin I level ICD Code: R74.8 - Abnormal levels of other serum enzymes Status: Acute (10) Atrial fibrillation ICD Code: I48.91 - Unspecified atrial fibrillation Status: Acute Assessment and Plan NEUROLOGY History of CVA with right-sided weakness Clinically stable this time, continue monitor neurological function Avoid sedative medications Physical therapy evaluation PULMONOLOGY Chronic hypoxic respiratory failure requiring home O2 Continue O2 supplementation maintain O2 sats greater 92% Duo nebs every 4 hours and every 2 hours as needed Incentive spirometry CARDIOLOGY Non-ST elevated myocardial infarction Elevated troponin Atrial fibrillation History of congestive heart failure Patient continued on aspirin Continue trending cardiac enzymes and EKGs Appreciate cardiology recommendations. Patient's field marketing lead is Dr. Jiang, discussed with Dr. Jasmine who is covering for Dr. Diggs. He'll be in to see the patient today. No intervention today . Eliquis continued for anticoagulation GASTROENTEROLOGY Diarrhea illness, patient had increased risk for C. difficile infection Awaiting C. difficile culture, stool studies Diabetic diet Pepcid for GI protection Zofran for nausea or vomiting GENITOURINARY Chronic kidney disease stage III Continue IV fluids Monitor renal function Avoid nephrotoxins, electrolytes replacement per protocol. INFECTIOUS DISEASE sepsis Urinary tract infection Diverticulitis Leukocytosis with bandemia Lactic acidosis- Resolved Patient started on Zosyn and Flagyl IV at this time, adjust antibiotics when cultures available Continue to follow blood cultures, urine culture, stool cultures Continue follow lactic acid level Consult infectious disease for recommendations HEMATOLOGY Monitor CBC ENDOCRINOLOGY Diabetes Accu-Cheks with sliding scale insulin PROPHYLAXIS DVT prevention with Eliquis, sequential compression devices GI protection with Pepcid LINES Peripheral IVs Addendum: Patient is seen and examined agree with above assessment and plan, renal function improved and lactic acid cleared with IV hydration. Patient seems hemodynamically stable . C-diff PCR is positive will add PO Vanco to Flagyl. ID service is consulted Will sign off and transfer care to [facility]. Giovanni Chavez Oct 08, 2017 11:46 Gustavo Means MD Oct 08, 2017 14:44
[2017-10-08] MEDS: INSULIN ASPART SUPPLEMENTAL SCALE SQ SCH ×3 (12:00→21:00)
[2017-10-08] MEDS ORDERED: ONDANSETRON HCL 4 MG/2 ML VIAL IV PUSH PRN (12:00)
[2017-10-08 12:30] LABS: TROPONIN I 0.51 NG/ML (0.02-0.05)
--- NOTE | 2017-10-08 12:42 | EKG ---
Date Performed: 10/08/2017 Time Performed: 05:59:56 PTAGE: 87 years EKG: ATRIAL FIBRILLATION INTRAVENTRICULAR CONDUCTION DELAY ABNORMAL ECG Compared to PREVIOUS TRACING , there appears to be significant electrical interference. Unclear if th is is some sort of stimulator. If patient has pacemaker, would have it interrogated to ensure proper function. PREVIOUS TRACIN08/17/2014 20.57 DOCTOR: Phi Lovett Interpretating Date/Time 10/08/2017 12:40:44
[2017-10-08 13:51] LABS: AUTOMATED NEUTROPHIL # 21.6 TH/MM3 (1.8-7.7); BASOPHIL % 0.1 % (0.0-2.0); EOSINOPHIL % 0.1 % (0.0-4.0); HEMATOCRIT 30.4 % (35.0-46.0); HEMOGLOBIN 9.2 GM/DL (11.6-15.3); LYMPH % 4.5 % (9.0-44.0); LYMPHOCYTE # 1.1 TH/MM3 (1.0-4.8); MEAN CELL VOLUME 78.3 FL (80.0-100.0); MEAN CORPUSCULAR HEMOGLOBIN 23.8 PG (27.0-34.0); MEAN CORPUSCULAR HGB CONC 30.4 % (32.0-36.0); MEAN PLATELET VOLUME 7.3 FL (7.0-11.0); MONO % 6.4 % (0.0-8.0); MONOCYTE # 1.6 TH/MM3 (0-0.9); NEUT % 88.9 % (16.0-70.0); PLATELET COUNT 264 TH/MM3 (150-450); RED BLOOD COUNT 3.88 MIL/MM3 (4.00-5.30); RED CELL DISTRIBUTION WIDTH 18.2 % (11.6-17.2); WHITE BLOOD COUNT 24.4 TH/MM3 (4.0-11.0)
[2017-10-08 13:56] LABS: CALCIUM 7.8 MG/DL (8.5-10.1)
[2017-10-08 14:00] LABS: CREATININE 1.2 MG/DL (0.50-1.00)
[2017-10-08] MEDS: APIXABAN 2.5 MG TABLET PO SCH ×2 (14:07→20:31)
[2017-10-08] MEDS ORDERED: POTASSIUM PHOSPHATE MONOBASIC 500 MG TAB PO PRN (14:45)
[2017-10-08] MEDS ORDERED: POTASSIUM CHLORIDE 25 MEQ EFFERVESCENT TAB PO PRN (14:45)
[2017-10-08] MEDS ORDERED: POTASSIUM PHOSPHATE INJ 30 MMOL in SODIUM CHLOR 0.9% 250 ML INJ 250 ML IV PRN (14:45)
[2017-10-08] MEDS ORDERED: SODIUM PHOSPHATE INJ 30 MMOL in SODIUM CHLOR 0.9% 250 ML INJ 240 ML IV PRN (14:45)
[2017-10-08] MEDS ORDERED: MAGNESIUM SULFATE INJ 4 GM in SODIUM CHLORIDE 0.9% INJ 92 ML IV PRN (14:45)
[2017-10-08] MEDS ORDERED: MAGNESIUM SULFATE INJ 2 GM in SODIUM CHLORIDE 0.9% INJ 96 ML IV PRN (14:45)
[2017-10-08] MEDS ORDERED: POTASSIUM CHLOR 40 MEQ PREMIX 100 ML IV PRN ×2 (14:45)
[2017-10-08] MEDS ORDERED: MAGNESIUM OXIDE 400 MG TAB PO PRN (14:45)
[2017-10-08] MEDS ORDERED: POTASSIUM PHOSPHATE MONOBASIC 500 MG TAB PO/TUBE PRN (14:45)
[2017-10-08] MEDS ORDERED: POTASSIUM CHLOR 20 MEQ PREMIX 100 ML IV PRN (14:45)
[2017-10-08] MEDS ORDERED: VANCOMYCIN 500 MG VIAL (FOR ORAL USE ONLY) PO SCH ×3 (15:00→18:00)
[2017-10-08] MEDS: CARVEDILOL 12.5 MG TAB PO SCH ×2 (15:53→20:31)
[2017-10-08] MEDS: POTASSIUM CHLOR 20 MEQ PREMIX 100 ML IV PRN ×3 (15:54→21:49)
--- NOTE | 2017-10-08 16:26 | PD.CONS ---
History of Present Illness Service Infectious disease Consult Requested By PARAMJIT Bean Reason for Consult Sepsis, Diarrhea Primary Care Physician Phi Branch M.D. Diagnoses: (1) Clostridium difficile enterocolitis (2) Sepsis (3) Urinary tract infection History of Present Illness Patient with H/o TVAR in Jun 2017 and after that 2 CVAs and so repeated admissions to hospital- has had Cdiff x 3 times before - in 2009- Jul 2017 and in Aug 2016 - per daughters she was always treated with Flagyl and responds but then it comes back. Also has h/o recurrent UTI s and recently was on PO Cipro. Patient had severe diarrhea with chills and rigors and so she was brought in to ER by family today. Per daughter since the strokes patient has had some short term memory loss. She denies abdominal pain Review of Systems Constitutional: COMPLAINS OF: Fever, Weight loss, Chills Endocrine: DENIES: Heat/cold intolerance, Polydipsia Eyes: DENIES: Diplopia, Eye inflammation, Eye pain Ears, nose, mouth, throat: DENIES: Oral lesions, Throat pain Respiratory: DENIES: Cough, Sputum production, Shortness of breath Cardiovascular: COMPLAINS OF: Lower Extremity Edema, DENIES: Chest pain, Palpitations Gastrointestinal: COMPLAINS OF: Diarrhea, Vomiting, DENIES: Abdominal pain, Difficulty Swallowing Genitourinary: DENIES: Urinary frequency, Dysuria Musculoskeletal: DENIES: Joint pain, Muscle aches Integumentary: DENIES: Pruritus, Rash Neurologic: COMPLAINS OF: Poor Balance, DENIES: Headache, Seizures Psychiatric: COMPLAINS OF: Confusion Past Family Social History Allergies: Coded Allergies: ropinirole (Verified Allergy, Severe, Anaphylaxis, 10/08/17) Past Medical History Past Medical History Atrial fibrillation Hypertension Hyperlipidemia History of congestive heart failure Insulin-dependent diabetes History CVA with right-sided weakness Chronic kidney disease stage III Chronic hypoxic respiratory failure on 2 L home oxygen C diff x 4 Recurrent UTI Past Surgical History Hysterectomy TVAR in Jun 2017 Pelvic fracture repair as a child Social History Lives at home with Physical Exam Vital Signs Vital Signs Date Time Temp Pulse Resp B/P (MAP) Pulse Ox O2 Delivery O2 Flow Rate FiO2 10/08/17 14:00 82 19 112/59 (76) 10/08/17 14:00 82 10/08/17 13:00 84 14 132/57 (82) 10/08/17 12:00 84 10/08/17 12:00 100.2 84 24 122/51 (74) 95 10/08/17 11:00 86 15 119/56 (77) 10/08/17 10:00 84 20 128/57 (80) 10/08/17 10:00 84 10/08/17 09:00 86 21 118/57 (77) 10/08/17 08:53 97 Nasal Cannula 2.00 10/08/17 08:45 98 10/08/17 08:31 88 19 126/60 (82) 96 10/08/17 08:30 10/08/17 07:33 92 16 104/47 (66) 85 2.00 10/08/17 06:22 89 20 100/51 (67) 99 Nasal Cannula 2.00 10/08/17 05:43 99 Nasal Cannula 2.00 10/08/17 05:32 98.9 97 18 138/67 (90) 99 Physical Exam GENERAL: This is a chronically ill- very pleasant somewhat confused patient SKIN: No rashes, ecchymoses or lesions. Cool and dry. HEAD: Atraumatic. Normocephalic. No temporal or scalp tenderness. EYES: Extraocular motions intact. No scleral icterus. No injection or drainage. ENT: Nose without bleeding, purulent drainage or septal hematoma. Throat without erythema, tonsillar hypertrophy or exudate. Uvula midline. Airway patent. NECK: Trachea midline. No JVD or lymphadenopathy. Supple, nontender, no meningeal signs. CARDIOVASCULAR: Regular rate and rhythm withs oft systolic murmurs, gallops, or rubs. RESPIRATORY: Clear to auscultation. Breath sounds equal bilaterally. No wheezes , rales, or rhonchi. GASTROINTESTINAL: Abdomen soft, non-tender, nondistended. No hepato-splenomegaly , or palpable masses. No guarding. MUSCULOSKELETAL: Extremities with trace edema. No joint tenderness, effusion, or edema noted. No calf tenderness. Negative Homans sign bilaterally. NEUROLOGICAL: Awake and alert. Cranial nerves II through XII intact. Motor and sensory grossly within normal limits. Five out of 5 muscle strength in all muscle groups. Patient with soem memory loss Laboratory Laboratory Tests Test 10/08/17 05:30 10/08/17 06:13 10/08/17 07:28 10/08/17 09:20 White Blood Count 26.9 Red Blood Count 4.46 Hemoglobin 10.9 Hematocrit 35.0 Mean Corpuscular Volume 78.6 Mean Corpuscular Hemoglobin 24.5 Mean Corpuscular Hemoglobin Concent 31.2 Red Cell Distribution Width 17.9 Platelet Count 288 Mean Platelet Volume 7.4 Neutrophils (%) (Auto) 86.5 Lymphocytes (%) (Auto) 3.2 Monocytes (%) (Auto) 7.9 Eosinophils (%) (Auto) 0.1 Basophils (%) (Auto) 2.3 Neutrophils # (Auto) 23.3 Lymphocytes # (Auto) 0.9 Monocytes # (Auto) 2.1 Eosinophils # (Auto) 0.0 Basophils # (Auto) 0.6 CBC Comment AUTO DIFF Differential Total Cells Counted 100 Neutrophils % (Manual) 79 Band Neutrophils % 11 Lymphocytes % 4 Monocytes % 6 Neutrophils # (Manual) 24.2 Differential Comment FINAL DIFF MANUAL Platelet Estimate NORMAL Platelet Morphology Comment NORMAL Ovalocytes 1+ Blood Urea Nitrogen 23 Creatinine 1.40 Random Glucose 75 Total Protein 7.5 Albumin 3.1 Calcium Level 8.5 Magnesium Level 1.8 Alkaline Phosphatase 61 Aspartate Amino Transf (AST/SGOT) 38 Alanine Aminotransferase (ALT/SGPT) 22 Total Bilirubin 0.5 Sodium Level 137 Potassium Level 3.6 Chloride Level 101 Carbon Dioxide Level 25.8 Anion Gap 10 Estimat Glomerular Filtration Rate 36 Lactic Acid Level 2.7 Phosphorus Level 4.3 Troponin I 0.37 Lipase 170 B-Hydroxybutyrate 0.21 Stool C. difficile Toxin (PCR) POSITIVE Stl C. difficile Toxin Epiderm 027 PRESUMPTIVE POSITIVE Urine Collection Type CLEAN CATCH Urine Color YELLOW Urine Turbidity CLEAR Urine pH 6.0 Urine Specific [place] 1.017 Urine Protein TRACE Urine Glucose (UA) NEG Urine Ketones NEG Urine Occult Blood NEG Urine Nitrite POS Urine Bilirubin NEG Urine Leukocyte Esterase TRACE Urine RBC 0-3 Urine WBC 25-49 Urine WBC Clumps MANY Urine Bacteria MANY Microscopic Urinalysis Comment CULTURE INDICATED Nasal Screen MRSA (PCR) MRSA NOT DETECTED Test 10/08/17 09:22 10/08/17 11:45 10/08/17 13:15 Prothrombin Time 12.0 Prothromb Time International Ratio 1.2 Activated Partial Thromboplast Time 30.5 Lactic Acid Level 1.1 Blood Urea Nitrogen 22 Creatinine 1.20 Random Glucose 88 Calcium Level 7.8 Sodium Level 136 Potassium Level 3.1 Chloride Level 103 Carbon Dioxide Level 23.0 Anion Gap 10 Estimat Glomerular Filtration Rate 42 Phosphorus Level 4.0 Total Creatine Kinase 90 Troponin I 0.51 White Blood Count 24.4 Red Blood Count 3.88 Hemoglobin 9.2 Hematocrit 30.4 Mean Corpuscular Volume 78.3 Mean Corpuscular Hemoglobin 23.8 Mean Corpuscular Hemoglobin Concent 30.4 Red Cell Distribution Width 18.2 Platelet Count 264 Mean Platelet Volume 7.3 Neutrophils (%) (Auto) 88.9 Lymphocytes (%) (Auto) 4.5 Monocytes (%) (Auto) 6.4 Eosinophils (%) (Auto) 0.1 Basophils (%) (Auto) 0.1 Neutrophils # (Auto) 21.6 Lymphocytes # (Auto) 1.1 Monocytes # (Auto) 1.6 Eosinophils # (Auto) 0.0 Basophils # (Auto) 0.0 CBC Comment AUTO DIFF Differential Comment AUTO DIFF CONFIRMED Date/Time Source Procedure Growth Status 10/08/17 05:36 Blood Peripheral Aerobic Blood Culture Pending Received 10/08/17 05:36 Blood Peripheral Anaerobic Blood Culture Pending Received 10/08/17 06:13 Stool Stool - Final NO ENTERIC PATHOGENS DETECTED BY PCR... Complete 10/08/17 07:28 Urine Catheterized Urine Urine Culture Pending Received Result Diagram: 10/08/17 1315 10/08/17 1145 Assessment and Plan Problem List: (1) Sepsis ICD Codes: A41.9 - Sepsis, unspecified organism Status: Acute Plan: Source likely the C diff and UTI Follow cultures Check Rapid Flu test (2) Clostridium difficile enterocolitis ICD Codes: A04.72 - Enterocolitis due to Clostridium difficile, not specified as recurrent Status: Acute Plan: Patient with recurrent C diff Stop PO Vancomycin Start Dificid 200 mg po bid ( Patient is going to need to be on other antibiotics for UTI) (3) Urinary tract infection ICD Codes: N39.0 - Urinary tract infection, site not specified Plan: Follow Blood and Urine culture Continue IV Zosyn (4) Leukocytosis ICD Codes: D72.829 - Elevated white blood cell count, unspecified Status: Acute Plan: Follow CBC Problem Qualifiers (1) Sepsis: Qualified Codes: A41.9 - Sepsis, unspecified organism Rocio Bain MD Oct 08, 2017 16:26
--- NOTE | 2017-10-08 18:06 | MB ---
cc: LAUREN JASMINE MD, JOSHUA R. M.D. ARAB, DINESH MD DATE OF CONSULTATION 10/08/17 HISTORY OF PRESENT ILLNESS Thank you, Dr. Xiong, for asking me to see this very pleasant 87 year old female, patient of Dr. Jiang. She presents with a history of hypertension, atrial fibrillation, congestive heart failure, chronic kidney disease x3, diabetes, chills, fatigue, nausea and diarrhea. She recently had a course of Cipro. She has a history of C. Diff in the past. She also has a history of prior myocardial infarction with elevated troponin. PAST MEDICAL HISTORY 1. Hypertension 2. Atrial fibrillation, 3. Congestive heart failure, 4. Cerebrovascular accident 5. Chronic kidney disease, 6. Hysterectomy MEDICATIONS At home include 1. Novolin 2. Eliquis 3. Vitamin C. 4. Carvedilol 5. Breo elipta 6. Furosemide. FAMILY HISTORY Positive for hypertension, glaucoma, stroke. SOCIAL HISTORY Nonsmoker, nondrinker. No drugs. PHYSICAL EXAMINATION VITAL SIGNS: Pulse was 84, blood pressure 128/87, respirations 20. EYES: Showed no xanthelasma. MOUTH: Showed no cyanosis or pallor. NECK: No JVD. HEART: She had two heart sounds. No murmurs. LUNGS: Chest was clear. ABDOMEN: Soft, no hepatosplenomegaly. EXTREMITIES: Legs revealed no evidence of edema NEUROLOGIC: Grossly intact. SKIN: Grossly intact. LABORATORY DATA White count was elevated at 26.9 with a bandemia, hemoglobin 10.9, platelet count normal. INR 1.2, hemoglobin 10.9, platelets 288,000, creatinine was elevated at 1.4. Troponin was also elevated mildly at 0.37. CARDIOLOGY STUDIES EKG showed a left bundle branch block with atrial fibrillation reported. ASSESSMENT/PLAN The patient has a positive troponin which could be on the basis of her underlying cardiac disease with the insult of acute sepsis syndrome on top of this. There is also evidence of an elevated creatinine, marked sepsis all of which could also cause the troponin to rise on a multifactorial basis. At this point, she is having no chest pains or shortness of breath. No acute infarct, so we will plan to treat her medically. She will follow up with Dr. Jiang on an outpatient basis once discharged for further workup. Incidentally, she had just seen him last week and apparently at that time was very stable. She denies any cardiac symptoms but has other multiple multi-system illnesses including sepsis, possibly urinary tract infection, elevated white count, rigors, diarrhea. So with this systemic illness one could expect a possible sepsis type syndrome. In June 2017, she also has a history of possible TAVR. Thank you for asking us to see this complex lady. Lauren Jasmine MD, FRCP,[facility]/ /5:32 PM /5:48 PM [email or web address]
[2017-10-08 18:11] LABS: TROPONIN I 0.38 NG/ML (0.02-0.05)
[2017-10-08] MEDS: LACTOBACILLUS ACIDOPHILUS TAB PO SCH (20:31)
[2017-10-08] MEDS ORDERED: TEMAZEPAM 15 MG CAP PO PRN (21:00)
[2017-10-08] MEDS ORDERED: LACTOBACILLUS ACIDOPHILUS TAB PO SCH (21:00)
[2017-10-08] MEDS: FIDAXOMICIN 200 MG TAB PO SCH (21:49)
[2017-10-09] VITALS (44 sets, daily range): BP systolic 98–146; BP diastolic 45–86; PULSE 78–102; RESP 5–38; TEMP 97.7–98.7; O2SAT 87–99
[2017-10-09] MEDS: PIPERACIL-TAZO 3.375 GM PREMIX 50 ML IV SCH ×3 (02:26→18:01)
[2017-10-09] MEDS: CHLORHEXIDINE GLUCONATE 2 % 1 PACK (2 CLOTHS) TOP SCH (04:00)
[2017-10-09 06:22] LABS: AUTOMATED NEUTROPHIL # 14.7 TH/MM3 (1.8-7.7); BASOPHIL % 0.2 % (0.0-2.0); EOSINOPHIL # 0.2 TH/MM3 (0-0.4); EOSINOPHIL % 0.9 % (0.0-4.0); HEMATOCRIT 27.5 % (35.0-46.0); HEMOGLOBIN 8.3 GM/DL (11.6-15.3); LYMPH % 7.9 % (9.0-44.0); LYMPHOCYTE # 1.3 TH/MM3 (1.0-4.8); MEAN CELL VOLUME 78.2 FL (80.0-100.0); MEAN CORPUSCULAR HEMOGLOBIN 23.7 PG (27.0-34.0); MEAN CORPUSCULAR HGB CONC 30.3 % (32.0-36.0); MEAN PLATELET VOLUME 6.9 FL (7.0-11.0); MONO % 5.1 % (0.0-8.0); MONOCYTE # 0.9 TH/MM3 (0-0.9); NEUT % 85.9 % (16.0-70.0); PLATELET COUNT 233 TH/MM3 (150-450); RED BLOOD COUNT 3.52 MIL/MM3 (4.00-5.30); RED CELL DISTRIBUTION WIDTH 17.7 % (11.6-17.2); WHITE BLOOD COUNT 17.1 TH/MM3 (4.0-11.0)
[2017-10-09 06:33] LABS: CHLORIDE 110 MEQ/L (98-107); SODIUM (NA) 140 MEQ/L (136-145)
[2017-10-09 06:41] LABS: ALBUMIN 2.6 GM/DL (3.4-5.0); BICARBONATE 21.3 MEQ/L (21.0-32.0); GLUCOSE,RANDOM 118 MG/DL (74-106)
[2017-10-09 06:42] LABS: BLOOD UREA NITROGEN 26 MG/DL (7-18)
[2017-10-09 06:44] LABS: ALT (GPT) 18 U/L (10-53); AST (GOT) 24 U/L (15-37)
[2017-10-09 06:45] LABS: GLOMERULAR FILTRATION RATE 39 ML/MIN (>89)
[2017-10-09 06:46] LABS: TOTAL BILIRUBIN ADULT 0.5 MG/DL (0.2-1.0); TOTAL PROTEIN 6.1 GM/DL (6.4-8.2)
[2017-10-09 06:47] LABS: ALKALINE PHOSPHATASE 46 U/L (45-117)
[2017-10-09] MEDS: RESP: ALBUTEROL 2.5 MG/IPRATROPIUM 0.5 MG NEB (SCH) INH ×4 (07:44→19:38)
[2017-10-09] MEDS ORDERED: PILL SPLITTER OTHER PRN (08:00)
[2017-10-09] MEDS: INSULIN ASPART SUPPLEMENTAL SCALE SQ SCH ×4 (08:00→20:05)
[2017-10-09] MEDS: LACTOBACILLUS ACIDOPHILUS TAB PO SCH ×2 (09:04→19:57)
[2017-10-09] MEDS: FAMOTIDINE 20 MG TAB PO SCH ×2 (09:04→19:58)
[2017-10-09] MEDS: APIXABAN 2.5 MG TABLET PO SCH ×2 (09:05→19:57)
[2017-10-09] MEDS: FIDAXOMICIN 200 MG TAB PO SCH ×2 (09:05→19:57)
[2017-10-09] MEDS: ASPIRIN EC 81 MG TABEC PO SCH (09:05)
[2017-10-09] MEDS: CARVEDILOL 12.5 MG TAB PO SCH ×2 (09:05→19:57)
[2017-10-09] MEDS: SODIUM CHLORIDE 0.9% FLUSH 10 ML FLUSH IV FLUSH SCH ×2 (09:06→19:58)
--- NOTE | 2017-10-09 11:03 | HHI.PR ---
Subjective Remarks 87-year-old female who is recently admitted to the ICU under critical care management. Patient was seen by myself yesterday and has a fairly extensive medical history. Patient was found to have severe sepsis with recurrent C. difficile infection, dehydration, elevated troponin, possible diverticulitis. Patient is doing much better today. She looks much better than diagnostic findings. She is actually asking to go home. I discussed with family at bedside all of her findings, treatment plan and prognosis. Objective Vital Signs Date Time Temp Pulse Resp B/P (MAP) Pulse Ox O2 Delivery O2 Flow Rate FiO2 10/09/17 10:00 96 21 141/63 (89) 10/09/17 09:00 94 27 122/58 (79) 10/09/17 08:00 98.2 96 26 141/62 (88) 10/09/17 07:47 98 Nasal Cannula 2.00 10/09/17 07:00 84 18 118/56 (76) 10/09/17 06:00 84 10/09/17 04:15 86 16 10/09/17 04:00 98.6 10/09/17 04:00 90 15 10/09/17 04:00 90 10/09/17 03:57 86 15 109/45 (66) 10/09/17 03:45 90 16 10/09/17 03:30 90 17 10/09/17 03:15 92 32 10/09/17 03:00 94 25 10/09/17 02:57 94 33 124/61 (82) 10/09/17 02:45 98 34 10/09/17 02:30 90 38 10/09/17 02:15 92 20 10/09/17 02:00 90 10/09/17 02:00 90 15 10/09/17 01:57 90 12 107/60 (76) 10/09/17 01:45 90 17 10/09/17 01:30 86 5 10/09/17 01:15 88 8 10/09/17 01:00 94 19 10/09/17 00:57 92 21 124/65 (84) 10/09/17 00:45 94 15 10/09/17 00:30 92 20 10/09/17 00:15 90 16 10/09/17 00:00 88 17 10/09/17 00:00 88 10/09/17 00:00 98.7 10/08/17 23:59 88 17 116/62 (80) 10/08/17 23:45 88 16 10/08/17 23:30 88 13 10/08/17 23:15 90 24 10/08/17 23:00 90 21 10/08/17 22:45 90 20 10/08/17 22:30 90 33 10/08/17 22:15 88 9 10/08/17 22:00 88 10/08/17 22:00 88 15 140/69 (92) 10/08/17 21:30 90 9 10/08/17 21:15 90 12 10/08/17 21:07 138/60 (86) 10/08/17 21:00 90 25 124/76 (92) 10/08/17 20:45 90 41 10/08/17 20:30 86 31 10/08/17 20:15 88 20 10/08/17 20:09 96 Nasal Cannula 2.00 10/08/17 20:00 88 10/08/17 20:00 88 25 10/08/17 20:00 98.4 10/08/17 19:45 86 18 10/08/17 19:00 78 23 105/50 (68) 10/08/17 18:00 92 17 121/60 (80) 10/08/17 17:00 88 19 142/74 (96) 10/08/17 16:00 88 10/08/17 16:00 99.8 88 27 140/59 (86) 95 10/08/17 15:00 90 19 135/58 (83) 10/08/17 14:00 82 19 112/59 (76) 10/08/17 14:00 82 10/08/17 13:00 84 14 132/57 (82) 10/08/17 12:00 84 10/08/17 12:00 100.2 84 24 122/51 (74) 95 10/08/17 11:00 86 15 119/56 (77) I/O 10/08/17 10/08/17 10/08/17 10/09/17 10/09/17 10/09/17 07:00 15:00 23:00 07:00 15:00 23:00 Intake Total 1300 ml 570 ml 380 ml 150 ml Balance 1300 ml 570 ml 380 ml 150 ml Intake Oral 320 ml 380 ml IV Total 1300 ml 250 ml 150 ml # Voids 4 4 # Bowel Movements 4 14 12 Result Diagram: 10/09/17 0550 10/09/17 0550 Imaging Last Impressions Chest X-Ray 10/08/17 0537 Signed Impressions: Service Date/Time: Sunday, October 08, 2017 06:34 - CONCLUSION: 1. Mild cardiomegaly with mild positive fluid balance. Hubert Dickens MD Abdomen/Pelvis CT 10/08/17 0000 Signed Impressions: Service Date/Time: Sunday, October 08, 2017 06:54 - CONCLUSION: Possible mild case of acute diverticulitis. Maria Elena Dalal MD Objective Remarks GENERAL: Well-developed, well-nourished, in no acute distress. alert and orientated HEENT: Head is normocephalic without any lesions or masses noted. Facial features are symmetric. Eyes: Extraocular muscles are intact. Conjunctivae were clear. NECK: Supple without any masses. Trachea midline no deviation. No JVD, CARDIAC: Regular rhythm, regular rate. S1/S2 are heard. No murmurs gallops or rubs. LUNGS: Clear to auscultation bilaterally. No wheeze, rhonchi or rales. No use of accessory muscles on inspiration or expiration. ABDOMEN: Soft, nontender. Nondistended. Bowel sounds heard in all 4 quadrants. No organomegaly or masses. Negative rebound, negative guarding EXTREMITIES: No edema, pulses are equal bilaterally. No cyanosis or clubbing NEUROLOGY: Mood and affect appear appropriate. Cranial nerves II through XII grossly intact. Moving all extremities, speech is clear A/P Assessment and Plan Sepsis secondary to Clostridium difficile infection, urinary tract infection Patient presented with Leukocytosis with bandemia which is improving, and Lactic acidosis which has resolved Infectious disease was consulted Patient started on Zosyn, Flagyl IV Infectious disease discontinued they go by mouth and has started patient on dificid Continue to follow urine culture for appropriate antibiotics Patient with 30 bowel movements in the last 24 hours Chronic hypoxic respiratory failure requiring home O2 Continue O2 supplementation maintain O2 sats greater 92% Duo nebs every 4 hours and every 2 hours as needed Incentive spirometry Non-ST elevated myocardial infarction with Elevated troponin Serial Cardiac enzymes were performed and are trending downward at this time Patient continued on aspirin, beta shaun Cardiology evaluated the patient and indicated that this could be underlying cardiac disease with insult from acute sepsis syndrome recommending medical management Follow-up with revenue stamp clerk upon discharge Atrial fibrillation History of congestive heart failure Anticoagulation was continued with Eliquis Diuretic been held due to sepsis, anticipate resuming when clinically stable Chronic kidney disease stage III Continue IV fluids Monitor renal function Avoid nephrotoxins, History of CVA with right-sided weakness Anticoagulation has been continued Continue physical therapy Diabetes Accu-Cheks with sliding scale insulin PROPHYLAXIS DVT prevention with Eliquis, sequential compression devices GI protection with Pepcid CODE STATUS No code Giovanni Chavez Oct 09, 2017 11:03
--- NOTE | 2017-10-09 11:58 | HHI.IDPN ---
Subjective Subjective Remarks Less diarrhea No abdominal pain Some dysuria No fevers Antibiotics Zosyn Dificid - Day # 2 Lines Peripheral line Past Medical History TVAR for CVA C diff x 4 Allergies: Coded Allergies: ropinirole (Verified Allergy, Severe, Anaphylaxis, 10/08/17) Review of Systems Constitutional Constitutional Remarks No fevers Objective . Vital Signs Date Time Temp Pulse Resp B/P (MAP) Pulse Ox O2 Delivery O2 Flow Rate FiO2 10/09/17 11:00 100 29 120/86 (97) 10/09/17 10:00 92 10/09/17 10:00 96 21 141/63 (89) 10/09/17 09:00 94 27 122/58 (79) 10/09/17 08:00 98.2 96 26 141/62 (88) 94 10/09/17 08:00 86 10/09/17 07:47 98 Nasal Cannula 2.00 10/09/17 07:00 84 18 118/56 (76) 10/09/17 06:00 84 10/09/17 04:15 86 16 10/09/17 04:00 98.6 10/09/17 04:00 90 15 10/09/17 04:00 90 10/09/17 03:57 86 15 109/45 (66) 10/09/17 03:45 90 16 10/09/17 03:30 90 17 10/09/17 03:15 92 32 10/09/17 03:00 94 25 10/09/17 02:57 94 33 124/61 (82) 10/09/17 02:45 98 34 10/09/17 02:30 90 38 10/09/17 02:15 92 20 10/09/17 02:00 90 10/09/17 02:00 90 15 10/09/17 01:57 90 12 107/60 (76) 10/09/17 01:45 90 17 10/09/17 01:30 86 5 10/09/17 01:15 88 8 10/09/17 01:00 94 19 10/09/17 00:57 92 21 124/65 (84) 10/09/17 00:45 94 15 10/09/17 00:30 92 20 10/09/17 00:15 90 16 10/09/17 00:00 88 17 10/09/17 00:00 88 10/09/17 00:00 98.7 10/08/17 23:59 88 17 116/62 (80) 10/08/17 23:45 88 16 10/08/17 23:30 88 13 10/08/17 23:15 90 24 10/08/17 23:00 90 21 10/08/17 22:45 90 20 10/08/17 22:30 90 33 10/08/17 22:15 88 9 10/08/17 22:00 88 10/08/17 22:00 88 15 140/69 (92) 10/08/17 21:30 90 9 10/08/17 21:15 90 12 10/08/17 21:07 138/60 (86) 10/08/17 21:00 90 25 124/76 (92) 10/08/17 20:45 90 41 10/08/17 20:30 86 31 10/08/17 20:15 88 20 10/08/17 20:09 96 Nasal Cannula 2.00 10/08/17 20:00 88 10/08/17 20:00 88 25 10/08/17 20:00 98.4 10/08/17 19:45 86 18 10/08/17 19:00 78 23 105/50 (68) 10/08/17 18:00 92 17 121/60 (80) 10/08/17 17:00 88 19 142/74 (96) 10/08/17 16:00 88 10/08/17 16:00 99.8 88 27 140/59 (86) 95 10/08/17 15:00 90 19 135/58 (83) 10/08/17 14:00 82 19 112/59 (76) 10/08/17 14:00 82 10/08/17 13:00 84 14 132/57 (82) 10/08/17 12:00 84 10/08/17 12:00 100.2 84 24 122/51 (74) 95 10/09/17 10/09/17 10/10/17 15:00 23:00 07:00 Intake Total 150 ml Balance 150 ml IV Total 150 ml . Laboratory Tests Test 10/08/17 05:30 10/08/17 13:15 10/09/17 05:50 White Blood Count 26.9 TH/MM3 24.4 TH/MM3 17.1 TH/MM3 Red Blood Count 4.46 MIL/MM3 3.88 MIL/MM3 3.52 MIL/MM3 Hemoglobin 10.9 GM/DL 9.2 GM/DL 8.3 GM/DL Hematocrit 35.0 % 30.4 % 27.5 % Mean Corpuscular Volume 78.6 FL 78.3 FL 78.2 FL Mean Corpuscular Hemoglobin 24.5 PG 23.8 PG 23.7 PG Mean Corpuscular Hemoglobin Concent 31.2 % 30.4 % 30.3 % Red Cell Distribution Width 17.9 % 18.2 % 17.7 % Platelet Count 288 TH/MM3 264 TH/MM3 233 TH/MM3 Mean Platelet Volume 7.4 FL 7.3 FL 6.9 FL Neutrophils (%) (Auto) 86.5 % 88.9 % 85.9 % Lymphocytes (%) (Auto) 3.2 % 4.5 % 7.9 % Monocytes (%) (Auto) 7.9 % 6.4 % 5.1 % Eosinophils (%) (Auto) 0.1 % 0.1 % 0.9 % Basophils (%) (Auto) 2.3 % 0.1 % 0.2 % Neutrophils # (Auto) 23.3 TH/MM3 21.6 TH/MM3 14.7 TH/MM3 Lymphocytes # (Auto) 0.9 TH/MM3 1.1 TH/MM3 1.3 TH/MM3 Monocytes # (Auto) 2.1 TH/MM3 1.6 TH/MM3 0.9 TH/MM3 Eosinophils # (Auto) 0.0 TH/MM3 0.0 TH/MM3 0.2 TH/MM3 Basophils # (Auto) 0.6 TH/MM3 0.0 TH/MM3 0.0 TH/MM3 CBC Comment AUTO DIFF AUTO DIFF AUTO DIFF Differential Total Cells Counted 100 Neutrophils % (Manual) 79 % Band Neutrophils % 11 % Lymphocytes % 4 % Monocytes % 6 % Neutrophils # (Manual) 24.2 TH/MM3 Differential Comment FINAL DIFF MANUAL AUTO DIFF CONFIRMED AUTO DIFF CONFIRMED Platelet Estimate NORMAL Platelet Morphology Comment NORMAL Ovalocytes 1+ Laboratory Tests Test 10/08/17 05:30 10/08/17 09:22 10/08/17 11:45 10/08/17 17:38 Blood Urea Nitrogen 23 MG/DL 22 MG/DL Creatinine 1.40 MG/DL 1.20 MG/DL Random Glucose 75 MG/DL 88 MG/DL Total Protein 7.5 GM/DL Albumin 3.1 GM/DL Calcium Level 8.5 MG/DL 7.8 MG/DL Magnesium Level 1.8 MG/DL Alkaline Phosphatase 61 U/L Aspartate Amino Transf (AST/SGOT) 38 U/L Alanine Aminotransferase (ALT/SGPT) 22 U/L Total Bilirubin 0.5 MG/DL Sodium Level 137 MEQ/L 136 MEQ/L Potassium Level 3.6 MEQ/L 3.1 MEQ/L Chloride Level 101 MEQ/L 103 MEQ/L Carbon Dioxide Level 25.8 MEQ/L 23.0 MEQ/L Anion Gap 10 MEQ/L 10 MEQ/L Estimat Glomerular Filtration Rate 36 ML/MIN 42 ML/MIN Lactic Acid Level 2.7 mmol/L 1.1 mmol/L Phosphorus Level 4.3 MG/DL 4.0 MG/DL Troponin I 0.37 NG/ML 0.51 NG/ML 0.38 NG/ML Lipase 170 U/L Total Creatine Kinase 90 U/L 103 U/L Creatine Kinase MB 2.0 NG/ML Test 10/09/17 05:50 Blood Urea Nitrogen 26 MG/DL Creatinine 1.30 MG/DL Random Glucose 118 MG/DL Total Protein 6.1 GM/DL Albumin 2.6 GM/DL Calcium Level 8.0 MG/DL Alkaline Phosphatase 46 U/L Aspartate Amino Transf (AST/SGOT) 24 U/L Alanine Aminotransferase (ALT/SGPT) 18 U/L Total Bilirubin 0.5 MG/DL Sodium Level 140 MEQ/L Potassium Level 3.7 MEQ/L Chloride Level 110 MEQ/L Carbon Dioxide Level 21.3 MEQ/L Anion Gap 9 MEQ/L Estimat Glomerular Filtration Rate 39 ML/MIN Microbiology Date/Time Source Procedure Growth Status 10/08/17 05:36 Blood Peripheral Aerobic Blood Culture - Preliminary NO GROWTH IN 1 DAY Resulted 10/08/17 05:36 Blood Peripheral Anaerobic Blood Culture - Preliminary NO GROWTH IN 1 DAY Resulted 10/08/17 05:30 Blood Peripheral Aerobic Blood Culture - Preliminary NO GROWTH IN 1 DAY Resulted 10/08/17 05:30 Blood Peripheral Anaerobic Blood Culture - Preliminary NO GROWTH IN 1 DAY Resulted 10/08/17 06:13 Stool Stool - Final NO ENTERIC PATHOGENS DETECTED BY PCR... Complete 10/08/17 17:30 Nasal Washing Influenza Types A,B Antigen (BANG) - Final NEGATIVE FOR FLU A AND B ANTIGEN.... Complete 10/08/17 07:28 Urine Catheterized Urine Urine Culture - Preliminary Gram Negative Jose Resulted Physical Exam GENERAL: This is a chronically ill- very pleasant s- less confused todat SKIN: No rashes, ecchymoses or lesions. Cool and dry. HEAD: Atraumatic. Normocephalic. No temporal or scalp tenderness. EYES: Extraocular motions intact. No scleral icterus. No injection or drainage. ENT: Nose without bleeding, purulent drainage or septal hematoma. Throat without erythema, tonsillar hypertrophy or exudate. Uvula midline. Airway patent. NECK: Trachea midline. No JVD or lymphadenopathy. Supple, nontender, no meningeal signs. CARDIOVASCULAR: Regular rate and rhythm with soft systolic murmurs, gallops, or rubs. RESPIRATORY: Clear to auscultation. Breath sounds equal bilaterally. No wheezes , rales, or rhonchi. GASTROINTESTINAL: Abdomen soft, non-tender, nondistended. No hepato-splenomegaly , or palpable masses. No guarding. MUSCULOSKELETAL: Extremities with trace edema. No joint tenderness, effusion, or edema noted. No calf tenderness. Negative Homans sign bilaterally. NEUROLOGICAL: Awake and alert. Cranial nerves II through XII intact. Motor and sensory grossly within normal limits. Five out of 5 muscle strength in all muscle groups. Patient with soem memory loss Assessment & Plan Diagnosis: (1) Sepsis ICD Codes: A41.9 - Sepsis, unspecified organism Status: Acute Plan: Source likely the C diff and UTI Follow cultures Rapid Flu test- negative (2) Clostridium difficile enterocolitis ICD Codes: A04.72 - Enterocolitis due to Clostridium difficile, not specified as recurrent Status: Acute Plan: Patient with recurrent C diff Continue Dificid 200 mg po bid ( Patient is going to need to be on other antibiotics for UTI)- Day # 2 (3) Urinary tract infection ICD Codes: N39.0 - Urinary tract infection, site not specified Plan: Blood culture - negative so far Urine culture- GNR Continue IV Zosyn Re check UAC on 10/10 (4) Leukocytosis ICD Codes: D72.829 - Elevated white blood cell count, unspecified Status: Acute Plan: Improved today Follow CBC Problem Qualifiers (1) Sepsis: Qualified Codes: A41.9 - Sepsis, unspecified organism Rocio Bain MD Oct 09, 2017 11:58
--- NOTE | 2017-10-09 12:57 | EKG ---
Date Performed: 10/08/2017 Time Performed: 12:01:35 PTAGE: 87 years EKG: ATRIAL FIBRILLATION INDETERMINATE AXIS INTRAVENTRICULAR CONDUCTION DELAY ABNORMAL ECG Since PREVIOUS TRACING , no significant change noted PREVIOUS TRACIN10/08/2017 05.59 DOCTOR: Phi Lovett Interpretating Date/Time 10/09/2017 12:56:53
--- NOTE | 2017-10-09 13:13 | EKG ---
Date Performed: 10/08/2017 Time Performed: 17:34:04 PTAGE: 87 years EKG: ATRIAL FIBRILLATION INTRAVENTRICULAR CONDUCTION DELAY ABNORMAL ECG Since PREVIOUS TRACING , no significant change noted PREVIOUS TRACIN10/08/2017 12.01 DOCTOR: Phi Lovett Interpretating Date/Time 10/09/2017 13:12:02
[2017-10-09] MEDS: SODIUM CHLOR 0.9% 1000 ML INJ 1,000 ML IV SCH ×2 (15:00→19:57)
--- NOTE | 2017-10-09 16:46 | ECHRPT ---
Indication: NSTEMI CONCLUSIONS The left ventricular systolic function is low normal with an estimated ejection fraction in the rang e of 50- 55%. Normal left ventricular size. Wall thickness is normal. No regional wall motion abnormalities are present. Calcification of the posterior mitral valve leaflet. Mild mitral annular calcification. Moderate mitral valve regurgitation. The aortic valve is not well visualized. 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 There is moderate to severe tricuspid valve regurgitation. There is estimated severe pulmonary hypertension present ( > 70 mmHg). BP: 109 / 45 HR: 66 Rhythm: Atrial fibrillation MEASUREMENTS (Male / Female) Normal Values Technical Quality:Good 2D ECHO LV Diastolic Diameter PLAX 3.8 cm 4.2 - 5.9 / 3.9 - 5.3 cm LV Systolic Diameter PLAX 3.0 cm IVS Diastolic Thickness 1.0 cm 0.6 - 1.0 / 0.6 - 0.9 cm LVPW Diastolic Thickness 1.1 cm 0.6 - 1.0 / 0.6 - 0.9 cm LV Relative Wall Thickness 0.5 RV Internal Dim ED PLAX 3.3 cm LVOT Diameter 1.4 cm LA Systolic Diameter LX 4.0 cm 3.0 - 4.0 / 2.7 - 3.8 cm LV Ejection Fraction MOD 4C 50.0 % LV Cardiac Index MOD 4C 928.8 cm/minm LV Ejection Fraction 4C AL 50.2 % LV Cardiac Index 4C AL 952.7 cm/minm DOPPLER AV Peak Velocity 184.0 cm/s AV Peak Gradient 13.5 mmHg LVOT Peak Velocity 116.0 cm/s LVOT Peak Gradient 5.4 mmHg AV Area Cont Eq pk 1.0 cm MV Area PHT 3.4 cm LV E' Lateral Velocity 6.2 cm/s LV E' Septal Velocity 3.4 cm/s TR Peak Velocity 388.0 cm/s TR Peak Gradient 60.2 mmHg Right Atrial Pressure 10.0 mmHg Pulmonary Artery Systolic Pressu 70.2 mmHg Right Ventricular Systolic Press 70.2 mmHg PV Peak Velocity 81.4 cm/s PV Peak Gradient 2.7 mmHg FINDINGS LEFT VENTRICLE The left ventricular systolic function is low normal with an estimated ejection fraction in the rang e of 50- 55%. Normal left ventricular size. Wall thickness is normal. No regional wall motion abnormalities are present. LEFT ATRIUM The left atrial size is mildly dilated. RIGHT ATRIUM The right atrial size is moderately dilated. MITRAL VALVE Calcification of the posterior mitral valve leaflet. Mild mitral annular calcification. Moderate mitral valve regurgitation. AORTIC VALVE The aortic valve is not well visualized. Trace aortic valve regurgitation. 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 TRICUSPID VALVE Structurally normal tricuspid valve. There is moderate to severe tricuspid valve regurgitation. There is estimated severe pulmonary hypertension present ( > 70 mmHg). Phi Lovett MD (Electronically Signed) Final Date:09 October 2017 16:44
[2017-10-10] VITALS (26 sets, daily range): BP systolic 98–164; BP diastolic 53–86; PULSE 70–100; RESP 13–38; TEMP 97.7–99.4; O2SAT 88–100
[2017-10-10] MEDS: PIPERACIL-TAZO 3.375 GM PREMIX 50 ML IV SCH (02:17)
[2017-10-10] MEDS: CHLORHEXIDINE GLUCONATE 2 % 1 PACK (2 CLOTHS) TOP SCH (02:19)
[2017-10-10 05:15] LABS: AUTOMATED NEUTROPHIL # 6.5 TH/MM3 (1.8-7.7); BASOPHIL % 0.5 % (0.0-2.0); EOSINOPHIL # 0.3 TH/MM3 (0-0.4); EOSINOPHIL % 3.7 % (0.0-4.0); HEMATOCRIT 26.5 % (35.0-46.0); HEMOGLOBIN 8.1 GM/DL (11.6-15.3); LYMPH % 13.9 % (9.0-44.0); LYMPHOCYTE # 1.2 TH/MM3 (1.0-4.8); MEAN CELL VOLUME 80.6 FL (80.0-100.0); MEAN CORPUSCULAR HEMOGLOBIN 24.8 PG (27.0-34.0); MEAN CORPUSCULAR HGB CONC 30.8 % (32.0-36.0); MEAN PLATELET VOLUME 7.3 FL (7.0-11.0); MONOCYTE # 0.6 TH/MM3 (0-0.9); NEUT % 74.9 % (16.0-70.0); PLATELET COUNT 181 TH/MM3 (150-450); RED BLOOD COUNT 3.28 MIL/MM3 (4.00-5.30); RED CELL DISTRIBUTION WIDTH 18.2 % (11.6-17.2); WHITE BLOOD COUNT 8.6 TH/MM3 (4.0-11.0)
[2017-10-10 05:36] LABS: BICARBONATE 20.7 MEQ/L (21.0-32.0); CALCIUM 7.8 MG/DL (8.5-10.1); MAGNESIUM 2.1 MG/DL (1.5-2.5)
[2017-10-10 05:40] LABS: CREATININE 1.3 MG/DL (0.50-1.00)
[2017-10-10] MEDS: RESP: ALBUTEROL 2.5 MG/IPRATROPIUM 0.5 MG NEB (SCH) INH ×4 (07:34→20:58)
[2017-10-10 07:46] LABS: ROULEAUX PRESENT (NORMAL)
[2017-10-10] MEDS: INSULIN ASPART SUPPLEMENTAL SCALE SQ SCH ×4 (08:00→20:37)
[2017-10-10] MEDS: CEFUROXIME AXETIL 250 MG TAB PO SCH ×2 (09:00→20:37)
[2017-10-10] MEDS: SODIUM CHLORIDE 0.9% FLUSH 10 ML FLUSH IV FLUSH SCH ×2 (09:36→20:35)
[2017-10-10] MEDS: LACTOBACILLUS ACIDOPHILUS TAB PO SCH ×2 (09:37→20:35)
[2017-10-10] MEDS: ASPIRIN EC 81 MG TABEC PO SCH (09:37)
[2017-10-10] MEDS: APIXABAN 2.5 MG TABLET PO SCH ×2 (09:37→20:36)
[2017-10-10] MEDS: FAMOTIDINE 20 MG TAB PO SCH ×2 (09:38→20:36)
[2017-10-10] MEDS: FIDAXOMICIN 200 MG TAB PO SCH ×2 (09:39→20:35)
[2017-10-10] MEDS: CARVEDILOL 12.5 MG TAB PO SCH ×2 (09:40→20:35)
--- NOTE | 2017-10-10 10:03 | HHI.IDPN ---
Subjective Subjective Remarks Less diarrhea- less frequent and less watery No abdominal pain No dysuria No fevers Antibiotics Cefuroxime Dificid - Day # 3 Lines Peripheral line Past Medical History TVAR for CVA C diff x 4 Allergies: Coded Allergies: ropinirole (Verified Allergy, Severe, Anaphylaxis, 10/08/17) Review of Systems Constitutional Constitutional Remarks No fevers Objective . Vital Signs Date Time Temp Pulse Resp B/P (MAP) Pulse Ox O2 Delivery O2 Flow Rate FiO2 10/10/17 07:35 95 Nasal Cannula 2.00 10/10/17 06:01 80 13 102/53 (69) 91 10/10/17 06:00 78 10/10/17 05:01 72 16 123/59 (80) 100 10/10/17 04:01 98.4 82 17 133/65 (87) 98 10/10/17 04:00 80 10/10/17 03:01 76 16 117/53 (74) 94 10/10/17 02:01 78 15 114/57 (76) 93 10/10/17 02:00 74 10/10/17 01:01 72 98/53 (68) 97 10/10/17 00:01 98.3 80 16 125/57 (79) 100 10/10/17 00:00 80 10/09/17 23:01 78 16 133/62 (85) 99 10/09/17 22:01 84 16 125/66 (85) 96 10/09/17 22:00 84 10/09/17 21:01 88 16 111/50 (70) 87 10/09/17 20:01 97.7 92 24 119/61 (80) 93 10/09/17 20:00 88 10/09/17 19:40 96 Nasal Cannula 2.00 10/09/17 19:01 96 27 146/74 (98) 10/09/17 18:00 94 10/09/17 18:00 96 21 98/64 (75) 10/09/17 17:00 98 21 129/49 (75) 10/09/17 16:00 94 10/09/17 16:00 98.4 90 20 127/57 (80) 95 10/09/17 15:00 90 10/09/17 15:00 90 29 132/73 (92) 10/09/17 14:00 94 10/09/17 14:00 90 38 116/61 (79) 10/09/17 13:00 92 29 113/58 (76) 10/09/17 13:00 102 10/09/17 12:00 92 10/09/17 12:00 97.9 94 23 131/60 (83) 10/09/17 11:00 100 29 120/86 (97) 10/09/17 10:00 92 10/09/17 10:00 96 21 141/63 (89) 10/10/17 10/10/17 10/11/17 15:00 23:00 07:00 Intake Total 200 ml Balance 200 ml IV Total 200 ml . Laboratory Tests Test 10/08/17 13:15 10/09/17 05:50 10/10/17 04:29 White Blood Count 24.4 TH/MM3 17.1 TH/MM3 8.6 TH/MM3 Red Blood Count 3.88 MIL/MM3 3.52 MIL/MM3 3.28 MIL/MM3 Hemoglobin 9.2 GM/DL 8.3 GM/DL 8.1 GM/DL Hematocrit 30.4 % 27.5 % 26.5 % Mean Corpuscular Volume 78.3 FL 78.2 FL 80.6 FL Mean Corpuscular Hemoglobin 23.8 PG 23.7 PG 24.8 PG Mean Corpuscular Hemoglobin Concent 30.4 % 30.3 % 30.8 % Red Cell Distribution Width 18.2 % 17.7 % 18.2 % Platelet Count 264 TH/MM3 233 TH/MM3 181 TH/MM3 Mean Platelet Volume 7.3 FL 6.9 FL 7.3 FL Neutrophils (%) (Auto) 88.9 % 85.9 % 74.9 % Lymphocytes (%) (Auto) 4.5 % 7.9 % 13.9 % Monocytes (%) (Auto) 6.4 % 5.1 % 7.0 % Eosinophils (%) (Auto) 0.1 % 0.9 % 3.7 % Basophils (%) (Auto) 0.1 % 0.2 % 0.5 % Neutrophils # (Auto) 21.6 TH/MM3 14.7 TH/MM3 6.5 TH/MM3 Lymphocytes # (Auto) 1.1 TH/MM3 1.3 TH/MM3 1.2 TH/MM3 Monocytes # (Auto) 1.6 TH/MM3 0.9 TH/MM3 0.6 TH/MM3 Eosinophils # (Auto) 0.0 TH/MM3 0.2 TH/MM3 0.3 TH/MM3 Basophils # (Auto) 0.0 TH/MM3 0.0 TH/MM3 0.0 TH/MM3 CBC Comment AUTO DIFF AUTO DIFF AUTO DIFF Differential Comment AUTO DIFF CONFIRMED AUTO DIFF CONFIRMED AUTO DIFF CONFIRMED Platelet Estimate NORMAL Platelet Morphology Comment NORMAL Rouleau PRESENT Laboratory Tests Test 10/08/17 11:45 10/08/17 17:38 10/09/17 05:50 10/10/17 04:29 Blood Urea Nitrogen 22 MG/DL 26 MG/DL 23 MG/DL Creatinine 1.20 MG/DL 1.30 MG/DL 1.30 MG/DL Random Glucose 88 MG/DL 118 MG/DL 136 MG/DL Calcium Level 7.8 MG/DL 8.0 MG/DL 7.8 MG/DL Sodium Level 136 MEQ/L 140 MEQ/L 141 MEQ/L Potassium Level 3.1 MEQ/L 3.7 MEQ/L 3.5 MEQ/L Chloride Level 103 MEQ/L 110 MEQ/L 112 MEQ/L Carbon Dioxide Level 23.0 MEQ/L 21.3 MEQ/L 20.7 MEQ/L Anion Gap 10 MEQ/L 9 MEQ/L 8 MEQ/L Estimat Glomerular Filtration Rate 42 ML/MIN 39 ML/MIN 39 ML/MIN Phosphorus Level 4.0 MG/DL Total Creatine Kinase 90 U/L 103 U/L Troponin I 0.51 NG/ML 0.38 NG/ML Creatine Kinase MB 2.0 NG/ML Total Protein 6.1 GM/DL Albumin 2.6 GM/DL Alkaline Phosphatase 46 U/L Aspartate Amino Transf (AST/SGOT) 24 U/L Alanine Aminotransferase (ALT/SGPT) 18 U/L Total Bilirubin 0.5 MG/DL Magnesium Level 2.1 MG/DL Microbiology Date/Time Source Procedure Growth Status 10/08/17 05:36 Blood Peripheral Aerobic Blood Culture - Preliminary NO GROWTH IN 1 DAY Resulted 10/08/17 05:36 Blood Peripheral Anaerobic Blood Culture - Preliminary NO GROWTH IN 1 DAY Resulted 10/08/17 05:30 Blood Peripheral Aerobic Blood Culture - Preliminary NO GROWTH IN 1 DAY Resulted 10/08/17 05:30 Blood Peripheral Anaerobic Blood Culture - Preliminary NO GROWTH IN 1 DAY Resulted 10/08/17 06:13 Stool Stool - Final NO ENTERIC PATHOGENS DETECTED BY PCR... Complete 10/08/17 17:30 Nasal Washing Influenza Types A,B Antigen (BANG) - Final NEGATIVE FOR FLU A AND B ANTIGEN.... Complete 10/08/17 07:28 Urine Catheterized Urine Urine Culture - Final Escherichia Coli Complete Physical Exam GENERAL: This is a chronically ill- very pleasant - not confused today SKIN: No rashes, ecchymoses or lesions. Cool and dry. HEAD: Atraumatic. Normocephalic. No temporal or scalp tenderness. EYES: Extraocular motions intact. No scleral icterus. No injection or drainage. ENT: Nose without bleeding, purulent drainage or septal hematoma. Throat without erythema, tonsillar hypertrophy or exudate. Uvula midline. Airway patent. NECK: Trachea midline. No JVD or lymphadenopathy. Supple, nontender, no meningeal signs. CARDIOVASCULAR: Regular rate and rhythm with soft systolic murmurs, gallops, or rubs. RESPIRATORY: Clear to auscultation. Breath sounds equal bilaterally. No wheezes , rales, or rhonchi. GASTROINTESTINAL: Abdomen soft, non-tender, nondistended. No hepato-splenomegaly , or palpable masses. No guarding. MUSCULOSKELETAL: Extremities with trace edema. No joint tenderness, effusion, or edema noted. No calf tenderness. Negative Homans sign bilaterally. NEUROLOGICAL: Awake and alert. Cranial nerves II through XII intact. Motor and sensory grossly within normal limits. Five out of 5 muscle strength in all muscle groups. Patient with soem memory loss Assessment & Plan Diagnosis: (1) Sepsis ICD Codes: A41.9 - Sepsis, unspecified organism Status: Acute Plan: Source likely the C diff and UTI Follow cultures Rapid Flu test- negative (2) Clostridium difficile enterocolitis ICD Codes: A04.72 - Enterocolitis due to Clostridium difficile, not specified as recurrent Status: Acute Plan: Patient with recurrent C diff Continue Dificid 200 mg po bid ( Patient is going to need to be on other antibiotics for UTI)- Day # 3 out of 10. (3) Urinary tract infection ICD Codes: N39.0 - Urinary tract infection, site not specified Plan: Blood culture - negative so far Urine culture- E coli- on PO Cefuroxime Repeat UAC today - if negative- would stop the Cefuroxime soon (4) Leukocytosis ICD Codes: D72.829 - Elevated white blood cell count, unspecified Status: Resolved Plan: Improved today Follow CBC Problem Qualifiers (1) Sepsis: Qualified Codes: A41.9 - Sepsis, unspecified organism Rocio Bain MD Oct 10, 2017 10:03
[2017-10-10] MEDS: SODIUM CHLOR 0.9% 1000 ML INJ 1,000 ML IV SCH (12:06)
--- NOTE | 2017-10-10 12:53 | PD.CONS ---
Consult Service Palliative Care Consult Requested By ALLISON Alfred Primary Care Physician Phi Branch M.D. Reason for Consultation a. To assist with evaluation and management of symptoms including:Physical deconditioning b. To assist medical decision maker(s) with: better understanding of current medical conditions; weighing benefits/burdens of medical treatment options; making medical treatment decisions. HPI History of Present Illness Mrs. Bustos is a 87-year-old female with a past medical history of atrial fibrillation, CHF, CVA with right-sided weakness, chronic hypoxemic respiratory on 2 L nasal cannula at home, hypertension, hyperlipidemia, chronic kidney disease stage III, recurrent urinary tract infections, C. difficile infections 4 and diabetes mellitus. Patient presented to the ER on 10/08/17 complaining of fatigue, chills, nausea, decreased oral intake and diarrhea which has been going on for the past 3 days prior to hospital visit. Patient was recently treated for UTI with Cipro. Patient has had multiple hospital admissions- in 2009, Aug 2016 and Jul 2017 for C. diff and is always been treated with Flagyl. She has also had recurrent urinary tract infections. ER course: * Vital signs: BP 128/57, pulse 84, respirations 20, O2 saturation of 85% on room air, placed on O2 2 L nasal cannula * EKG revealed atrial fibrillation with possible left bundle branch block * Laboratory workup revealed WBC 26.9, hemoglobin 10.9, hematocrit 35.0, platelet count 288, potassium 3.1, BUN/creatinine 22/1.20, troponin 0.38, PT 12.0, INR 1.2, APTT 30.5 * Chest x-ray revealed mild cardiomegaly with mild positive fluid balance. * Abdomen/pelvis CT revealed possible mild case of acute diverticulitis. * Urine positive for nitrites, with high WBCs and bacteria, culture indicated. Final report showing Escherichia coli. * C. difficile PCR positive-patient started on oral vancomycin * Patient was admitted for further evaluation and treatment of sepsis with leukocytosis with bandemia. Infectious disease Dr. Bain consulted on 10/08/17 for management of sepsis and diarrhea- discontinued oral vancomycin and started patient on Dificid [address] Jasmine consulted on 10/08/2017 for evaluation and management of elevated troponin- recommended medically managing patient. Physical therapy consulted. On 10/09/2017- family indicated that they were interested in hospice, hospice consult placed. Patient's and son met with hospice nurse yesterday and stated that he did not want hospice services anymore. Palliative care consulted to assist with establishing goals of care. Patient seen and examined in her room in [place] ICU. Alert, oriented to self, place, situation with some forgetfulness. Patient denies pain at this time. Patient is afebrile. Vital signs today- Pulse 80 to 90s, SBP low 100s to 160s, respiratory rate 13-34 O2 saturation 93% on 2 L nasal cannula.Laboratory workup today revealing WBC 8.6, hemoglobin 8.1, hematocrit 26.5, platelet count 181, BUN/creatinine 83/1.30. Patient`s and son at bedside. Obtained psychosocial history and medical history. Patient`s on the telephone trying to set up home health care for patient because they have been told that patient is ready to be medically discharged. Patient`s dismissive and not willing to talk to palliative care. Patient`s son apologetic and explained that his parents have been through a lot for the past few months. Per patient`s son, patient has had about 6 hospitalizations in the past 6 months mainly for C. diff infection and x2 strokes, some of them at [facility]. Patient has also had short term memory loss from the previous stroke and her makes most of her medical decisions. Patient`s son and patient stated that patient has a living will. Reintroduced hospice philosophy and benefits. Patient`s son stated that at this time, patient`s has decided that he does not hospice at this time but maybe later they transition patient to hospice services. Case discussed with ALLISON Andrade and bedside RN Jeffrey. Function/Cognitive Trajectory Patient lives at home with his spouse. She has had a hospital admission in the last 30 days at [facility]. Patient requires assistance with bathing, dressing, toileting. Patient is able to feed herself. Patient uses oxygen, walker and a shower chair at home. Prior to this admission patient had home health care services through [facility]. She also has private duty caregivers. Patient has had some short term memory loss since the strokes. . Review of Systems Constitutional: COMPLAINS OF: Fever, Weight loss, Chills Endocrine: DENIES: Heat/cold intolerance, Polydipsia Eyes: DENIES: Eye inflammation Ears, nose, mouth, throat: DENIES: Throat pain Respiratory: COMPLAINS OF: Shortness of breath, DENIES: Cough, Sputum production Cardiovascular: COMPLAINS OF: Lower Extremity Edema, DENIES: Chest pain, Palpitations, Dyspnea on Exertion Gastrointestinal: COMPLAINS OF: Diarrhea, Nausea, Difficulty Swallowing, DENIES : Black stools, Vomiting Genitourinary: DENIES: Urinary frequency Integumentary: DENIES: Rash Hematologic/Lymphatics: COMPLAINS OF: Bruising Neurologic: COMPLAINS OF: Poor Balance, DENIES: Headache, Seizures Psychiatric: COMPLAINS OF: Confusion Past Family Social History Coded Allergies: ropinirole (Verified Allergy, Severe, Anaphylaxis, 10/08/17) Past Medical History Atrial fibrillation C. difficile 4 Hypertension Hyperlipidemia Congestive heart failure Insulin-dependent diabetes x2 CVA with right sided weakness Recurrent UTIs Chronic kidney disease stage III Chronic hypoxic respiratory failure on 2 L home oxygen . Past Surgical History TVAR in Jun 2017 Hysterectomy Pelvic fracture repair this a child . Reported Medications Novolin N Inj (Insulin Human NPH) 1,000 Unit/10 Ml Vial 30 Units SQ BID Vitamin C (Ascorbic Acid) 250 Mg Tab 1,000 Mg PO Eliquis (Apixaban) 2.5 Mg Tab 2.5 Mg PO BID Carvedilol 12.5 Mg Tab 12.5 Mg PO BID Breo Ellipta Inh (Fluticasone/Vilanterol) 100-25 Mcg/Act Inh 1 Puff INH DAILY Aspirin Children's (Aspirin) 81 Mg Chew 162 Mg CHEW DAILY Furosemide 20 Mg Tab 20 Mg PO BID . Current Medications Medications (Trade) Dose Ordered Sig/Selma Route Start Time Stop Time Status Last Admin (NS Flush) 2 ml UNSCH PRN IV FLUSH 10/08/17 08:30 (NS Flush) 2 ml BID IV FLUSH 10/08/17 09:00 10/10/17 09:36 (Tylenol) 650 mg Q6H PRN PO 10/08/17 09:00 ([place] 5-325 Mg) 1 tab Q4H PRN PO 10/08/17 09:00 (Zofran Inj) 4 mg Q6H PRN IV PUSH 10/08/17 12:00 (Restoril) 15 mg HS PRN PO 10/08/17 21:00 (Duoneb Neb) 1 ampule Q2HR NEB PRN INH 10/08/17 10:00 Miscellaneous Information 1 Q361D XX 10/08/17 08:30 10/08/17 08:30 (Chlorhexidine 2% Cloth) 3 pack Taper DAILY@04 TOP 10/09/17 04:00 10/05/18 03:59 10/10/17 02:19 (Chlorhexidine 2% Cloth) 3 pack UNSCH PRN TOP 10/08/17 08:30 (Milk Of Magnkim Liq) 30 ml Q12HR PRN PO 10/08/17 09:00 (Senokot) 17.2 mg Q12HR PRN PO 10/08/17 09:00 (Dulcolax Supp) 10 mg DAILY PRN RECTAL 10/08/17 09:00 (D50w (Vial) Inj) 50 ml UNSCH PRN IV PUSH 10/08/17 08:30 (Glucagon Inj) 1 mg UNSCH PRN OTHER 10/08/17 08:30 (NovoLOG SUPPLEMENTAL SCALE) 1 ACHS SLIDING SCALE SQ 10/08/17 12:00 10/09/17 17:22 Sodium Chloride 1,000 ml @ 75 mls/hr [id number] IV 10/08/17 08:45 10/09/17 19:57 (Ecotrin Ec) 162 mg DAILY PO 10/08/17 09:00 10/10/17 09:37 (Eliquis) 2.5 mg BID PO 10/08/17 12:00 10/10/17 09:37 Potassium Chloride 100 ml @ 50 mls/hr Q2H PRN IV 10/08/17 14:45 Potassium Chloride 100 ml @ 50 mls/hr Q2H PRN IV 10/08/17 14:45 10/08/17 21:49 (K-Lyte Cl Eff) 50 meq UNSCH PRN PO 10/08/17 14:45 Potassium Chloride 100 ml @ 25 mls/hr UNSCH PRN IV 10/08/17 14:45 Potassium Chloride 100 ml @ 50 mls/hr Q2H PRN IV 10/08/17 14:45 Magnesium Sulfate 4 gm/Sodium Chloride 100 ml @ 50 mls/hr UNSCH PRN IV 10/08/17 14:45 (Mag-Ox) 800 mg UNSCH PRN PO 10/08/17 14:45 Magnesium Sulfate 2 gm/Sodium Chloride 100 ml @ 50 mls/hr UNSCH PRN IV 10/08/17 14:45 (K-Phos) 2,000 mg Q4H PRN PO 10/08/17 14:45 Sodium Phosphate 30 mmol/Sodium Chloride 250 ml @ 42 mls/hr UNSCH PRN IV 10/08/17 14:45 (K-Phos) 2,000 mg UNSCH PRN PO/TUBE 10/08/17 14:45 Potassium Phosphate 30 mmol/ Sodium Chloride 260 ml @ 42 mls/hr UNSCH PRN IV 10/08/17 14:45 (Coreg) 12.5 mg BID PO 10/08/17 15:00 10/10/17 09:40 (Duoneb Neb) 1 ampule Q4HR WHILE AWAKE NEB INH 10/08/17 16:00 10/10/17 11:11 (Dificid) 200 mg BID PO 10/08/17 21:00 10/18/17 20:59 10/10/17 09:39 (Lactinex) 1 tab Q12HR PO 10/08/17 21:00 10/10/17 09:37 (Pepcid) 10 mg Q12HR PO 10/09/17 09:00 10/10/17 09:38 (Pill Splitter) 1 ea UNSCH PRN OTHER 10/09/17 08:00 (Ceftin) 250 mg Q12HR PO 10/10/17 09:00 10/10/17 09:00 Family History History of hypertension, glaucoma, stroke . Substance Use Tobacco: None reported Alcohol: None reported Prescription med abuse: None reported Illicits: None reported . Psychosocial History Patient was born and raised in [place]. She moved to [place] in 1959. Patient has been to her for 67 years. 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 Patient has 3 adult children, 1 son and 2 daughters. . Spiritual/Cultural Factors Patient is Buddhist. . Living Will: Completed, but not made available Health Care Surrogate: Completed, but not made available Health Care Surrogate(s): Health Care Proxy- Spouse- Fox Bustos- [phone] . Today's verbally stated goals: Patient to be discharged home with [facility] . Family/friends goals: Patient to be discharged home with HHC . Ethical and Legal Issues None identified at this time . Physical Exam Vital Signs Date Time Temp Pulse Resp B/P (MAP) Pulse Ox O2 Delivery O2 Flow Rate FiO2 10/10/17 07:35 95 Nasal Cannula 2.00 10/10/17 06:01 80 13 102/53 (69) 91 10/10/17 06:00 78 10/10/17 05:01 72 16 123/59 (80) 100 10/10/17 04:01 98.4 82 17 133/65 (87) 98 10/10/17 04:00 80 10/10/17 03:01 76 16 117/53 (74) 94 10/10/17 02:01 78 15 114/57 (76) 93 10/10/17 02:00 74 10/10/17 01:01 72 98/53 (68) 97 10/10/17 00:01 98.3 80 16 125/57 (79) 100 10/10/17 00:00 80 10/09/17 23:01 78 16 133/62 (85) 99 10/09/17 22:01 84 16 125/66 (85) 96 10/09/17 22:00 84 10/09/17 21:01 88 16 111/50 (70) 87 10/09/17 20:01 97.7 92 24 119/61 (80) 93 10/09/17 20:00 88 10/09/17 19:40 96 Nasal Cannula 2.00 10/09/17 19:01 96 27 146/74 (98) 10/09/17 18:00 94 10/09/17 18:00 96 21 98/64 (75) 10/09/17 17:00 98 21 129/49 (75) 10/09/17 16:00 94 10/09/17 16:00 98.4 90 20 127/57 (80) 95 10/09/17 15:00 90 10/09/17 15:00 90 29 132/73 (92) 10/09/17 14:00 94 10/09/17 14:00 90 38 116/61 (79) 10/09/17 13:00 92 29 113/58 (76) 10/09/17 13:00 102 10/09/17 12:00 92 10/09/17 12:00 97.9 94 23 131/60 (83) 10/10/17 10/11/17 19:00 07:00 Intake Total 200 ml Balance 200 ml IV Total 200 ml Exam CONSTITUTIONAL/GENERAL: This is an adequately nourished patient, in no apparent distress. TUBES/LINES/DRAINS: PIV, SCDs, NC SKIN: No jaundice, rashes, or lesions. Ecchymoses on upper extremities. No wounds seen anteriorly. Skin temperature appropriate. Not diaphoretic. HEAD: Atraumatic. Normocephalic. EYES: Pupils equal and round and reactive. Extraocular motions intact. No scleral icterus. No injection or drainage. Fundi not examined. ENT: Hearing grossly normal. Nose without bleeding or purulent drainage. Moist oral mucosa. NECK: Trachea midline. Supple, nontender. CARDIOVASCULAR: Regular rate and rhythm without murmurs, gallops, or rubs. No JVD. Peripheral pulses symmetric. RESPIRATORY/CHEST: Symmetric, unlabored respirations. Clear to auscultation. Breath sounds equal bilaterally. No wheezes, rales, or rhonchi. GASTROINTESTINAL: Abdomen soft, non-tender, nondistended. No guarding. Bowel sounds present. GENITOURINARY: Without palpable bladder distension. MUSCULOSKELETAL: Extremities without clubbing, cyanosis, or edema. No joint tenderness or effusion noted. No calf tenderness. No mottling or clubbing. NEUROLOGICAL: Awake and alert, oriented to self, place situation with forgetfulness. Motor and sensory grossly within normal limits. Follows commands. Moves all extremities. PSYCHIATRIC: No obvious anxiety/depression. no apparent hallucinations or other psychotic thought process. Diagnostic Tests Laboratory Laboratory Tests Test 10/08/17 05:30 10/08/17 06:13 10/08/17 07:28 10/08/17 09:20 White Blood Count 26.9 TH/MM3 (4.0-11.0) Red Blood Count 4.46 MIL/MM3 (4.00-5.30) Hemoglobin 10.9 GM/DL (11.6-15.3) Hematocrit 35.0 % (35.0-46.0) Mean Corpuscular Volume 78.6 FL (80.0-100.0) Mean Corpuscular Hemoglobin 24.5 PG (27.0-34.0) Mean Corpuscular Hemoglobin Concent 31.2 % (32.0-36.0) Red Cell Distribution Width 17.9 % (11.6-17.2) Platelet Count 288 TH/MM3 (150-450) Mean Platelet Volume 7.4 FL (7.0-11.0) Neutrophils (%) (Auto) 86.5 % (16.0-70.0) Lymphocytes (%) (Auto) 3.2 % (9.0-44.0) Monocytes (%) (Auto) 7.9 % (0.0-8.0) Eosinophils (%) (Auto) 0.1 % (0.0-4.0) Basophils (%) (Auto) 2.3 % (0.0-2.0) Neutrophils # (Auto) 23.3 TH/MM3 (1.8-7.7) Lymphocytes # (Auto) 0.9 TH/MM3 (1.0-4.8) Monocytes # (Auto) 2.1 TH/MM3 (0-0.9) Eosinophils # (Auto) 0.0 TH/MM3 (0-0.4) Basophils # (Auto) 0.6 TH/MM3 (0-0.2) CBC Comment AUTO DIFF Differential Total Cells Counted 100 Neutrophils % (Manual) 79 % (16-70) Band Neutrophils % 11 % (0-6) Lymphocytes % 4 % (9-44) Monocytes % 6 % (0-8) Neutrophils # (Manual) 24.2 TH/MM3 (1.8-7.7) Differential Comment FINAL DIFF MANUAL Platelet Estimate NORMAL (NORMAL) Platelet Morphology Comment NORMAL (NORMAL) Ovalocytes 1+ (NORMAL) Blood Urea Nitrogen 23 MG/DL (7-18) Creatinine 1.40 MG/DL (0.50-1.00) Random Glucose 75 MG/DL (74-106) Total Protein 7.5 GM/DL (6.4-8.2) Albumin 3.1 GM/DL (3.4-5.0) Calcium Level 8.5 MG/DL (8.5-10.1) Magnesium Level 1.8 MG/DL (1.5-2.5) Alkaline Phosphatase 61 U/L (45-117) Aspartate Amino Transf (AST/SGOT) 38 U/L (15-37) Alanine Aminotransferase (ALT/SGPT) 22 U/L (10-53) Total Bilirubin 0.5 MG/DL (0.2-1.0) Sodium Level 137 MEQ/L (136-145) Potassium Level 3.6 MEQ/L (3.5-5.1) Chloride Level 101 MEQ/L (98-107) Carbon Dioxide Level 25.8 MEQ/L (21.0-32.0) Anion Gap 10 MEQ/L (5-15) Estimat Glomerular Filtration Rate 36 ML/MIN (>89) Lactic Acid Level 2.7 mmol/L (0.4-2.0) Phosphorus Level 4.3 MG/DL (2.5-4.9) Troponin I 0.37 NG/ML (0.02-0.05) Lipase 170 U/L (73-393) B-Hydroxybutyrate 0.21 MMOL/L (0.00-0.39) Stool C. difficile Toxin (PCR) POSITIVE (NEGATIVE) Stl C. difficile Toxin Epiderm 027 PRESUMPTIVE POSITIVE Urine Collection Type CLEAN CATCH Urine Color YELLOW (YELLW/STRAW) Urine Turbidity CLEAR (CLEAR) Urine pH 6.0 (5.0-8.5) Urine Specific [place] 1.017 (1.002-1.035) Urine Protein TRACE mg/dL (NEG-TRACE) Urine Glucose (UA) NEG mg/dL (NEG) Urine Ketones NEG mg/dL (NEG) Urine Occult Blood NEG (NEG) Urine Nitrite POS (NEG) Urine Bilirubin NEG (NEG) Urine Leukocyte Esterase TRACE (NEG) Urine RBC 0-3 /hpf (0-3) Urine WBC 25-49 /hpf (0-5) Urine WBC Clumps MANY (NONE) Urine Bacteria MANY /hpf (NONE) Microscopic Urinalysis Comment CULTURE INDICATED Nasal Screen MRSA (PCR) MRSA NOT DETECTED (NOT Test 10/08/17 09:22 10/08/17 11:45 10/08/17 13:15 10/08/17 17:38 Prothrombin Time 12.0 SEC (9.8-11.6) Prothromb Time International Ratio 1.2 RATIO Activated Partial Thromboplast Time 30.5 SEC (24.3-30.1) Lactic Acid Level 1.1 mmol/L (0.4-2.0) Blood Urea Nitrogen 22 MG/DL (7-18) Creatinine 1.20 MG/DL (0.50-1.00) Random Glucose 88 MG/DL (74-106) Calcium Level 7.8 MG/DL (8.5-10.1) Sodium Level 136 MEQ/L (136-145) Potassium Level 3.1 MEQ/L (3.5-5.1) Chloride Level 103 MEQ/L (98-107) Carbon Dioxide Level 23.0 MEQ/L (21.0-32.0) Anion Gap 10 MEQ/L (5-15) Estimat Glomerular Filtration Rate 42 ML/MIN (>89) Phosphorus Level 4.0 MG/DL (2.5-4.9) Total Creatine Kinase 90 U/L (26-192) 103 U/L (26-192) Troponin I 0.51 NG/ML (0.02-0.05) 0.38 NG/ML (0.02-0.05) White Blood Count 24.4 TH/MM3 (4.0-11.0) Red Blood Count 3.88 MIL/MM3 (4.00-5.30) Hemoglobin 9.2 GM/DL (11.6-15.3) Hematocrit 30.4 % (35.0-46.0) Mean Corpuscular Volume 78.3 FL (80.0-100.0) Mean Corpuscular Hemoglobin 23.8 PG (27.0-34.0) Mean Corpuscular Hemoglobin Concent 30.4 % (32.0-36.0) Red Cell Distribution Width 18.2 % (11.6-17.2) Platelet Count 264 TH/MM3 (150-450) Mean Platelet Volume 7.3 FL (7.0-11.0) Neutrophils (%) (Auto) 88.9 % (16.0-70.0) Lymphocytes (%) (Auto) 4.5 % (9.0-44.0) Monocytes (%) (Auto) 6.4 % (0.0-8.0) Eosinophils (%) (Auto) 0.1 % (0.0-4.0) Basophils (%) (Auto) 0.1 % (0.0-2.0) Neutrophils # (Auto) 21.6 TH/MM3 (1.8-7.7) Lymphocytes # (Auto) 1.1 TH/MM3 (1.0-4.8) Monocytes # (Auto) 1.6 TH/MM3 (0-0.9) Eosinophils # (Auto) 0.0 TH/MM3 (0-0.4) Basophils # (Auto) 0.0 TH/MM3 (0-0.2) CBC Comment AUTO DIFF Differential Comment AUTO DIFF CONFIRMED Creatine Kinase MB 2.0 NG/ML (0.5-3.6) Test 10/09/17 05:50 10/10/17 04:29 White Blood Count 17.1 TH/MM3 (4.0-11.0) 8.6 TH/MM3 (4.0-11.0) Red Blood Count 3.52 MIL/MM3 (4.00-5.30) 3.28 MIL/MM3 (4.00-5.30) Hemoglobin 8.3 GM/DL (11.6-15.3) 8.1 GM/DL (11.6-15.3) Hematocrit 27.5 % (35.0-46.0) 26.5 % (35.0-46.0) Mean Corpuscular Volume 78.2 FL (80.0-100.0) 80.6 FL (80.0-100.0) Mean Corpuscular Hemoglobin 23.7 PG (27.0-34.0) 24.8 PG (27.0-34.0) Mean Corpuscular Hemoglobin Concent 30.3 % (32.0-36.0) 30.8 % (32.0-36.0) Red Cell Distribution Width 17.7 % (11.6-17.2) 18.2 % (11.6-17.2) Platelet Count 233 TH/MM3 (150-450) 181 TH/MM3 (150-450) Mean Platelet Volume 6.9 FL (7.0-11.0) 7.3 FL (7.0-11.0) Neutrophils (%) (Auto) 85.9 % (16.0-70.0) 74.9 % (16.0-70.0) Lymphocytes (%) (Auto) 7.9 % (9.0-44.0) 13.9 % (9.0-44.0) Monocytes (%) (Auto) 5.1 % (0.0-8.0) 7.0 % (0.0-8.0) Eosinophils (%) (Auto) 0.9 % (0.0-4.0) 3.7 % (0.0-4.0) Basophils (%) (Auto) 0.2 % (0.0-2.0) 0.5 % (0.0-2.0) Neutrophils # (Auto) 14.7 TH/MM3 (1.8-7.7) 6.5 TH/MM3 (1.8-7.7) Lymphocytes # (Auto) 1.3 TH/MM3 (1.0-4.8) 1.2 TH/MM3 (1.0-4.8) Monocytes # (Auto) 0.9 TH/MM3 (0-0.9) 0.6 TH/MM3 (0-0.9) Eosinophils # (Auto) 0.2 TH/MM3 (0-0.4) 0.3 TH/MM3 (0-0.4) Basophils # (Auto) 0.0 TH/MM3 (0-0.2) 0.0 TH/MM3 (0-0.2) CBC Comment AUTO DIFF AUTO DIFF Differential Comment AUTO DIFF CONFIRMED AUTO DIFF CONFIRMED Blood Urea Nitrogen 26 MG/DL (7-18) 23 MG/DL (7-18) Creatinine 1.30 MG/DL (0.50-1.00) 1.30 MG/DL (0.50-1.00) Random Glucose 118 MG/DL (74-106) 136 MG/DL (74-106) Total Protein 6.1 GM/DL (6.4-8.2) Albumin 2.6 GM/DL (3.4-5.0) Calcium Level 8.0 MG/DL (8.5-10.1) 7.8 MG/DL (8.5-10.1) Alkaline Phosphatase 46 U/L (45-117) Aspartate Amino Transf (AST/SGOT) 24 U/L (15-37) Alanine Aminotransferase (ALT/SGPT) 18 U/L (10-53) Total Bilirubin 0.5 MG/DL (0.2-1.0) Sodium Level 140 MEQ/L (136-145) 141 MEQ/L (136-145) Potassium Level 3.7 MEQ/L (3.5-5.1) 3.5 MEQ/L (3.5-5.1) Chloride Level 110 MEQ/L (98-107) 112 MEQ/L (98-107) Carbon Dioxide Level 21.3 MEQ/L (21.0-32.0) 20.7 MEQ/L (21.0-32.0) Anion Gap 9 MEQ/L (5-15) 8 MEQ/L (5-15) Estimat Glomerular Filtration Rate 39 ML/MIN (>89) 39 ML/MIN (>89) Platelet Estimate NORMAL (NORMAL) Platelet Morphology Comment NORMAL (NORMAL) Rouleau PRESENT (NORMAL) Magnesium Level 2.1 MG/DL (1.5-2.5) Result Diagram: 10/10/17 0429 10/10/17 0429 Microbiology Microbiology Date/Time Source Procedure Growth Status 10/08/17 05:36 Blood Peripheral Aerobic Blood Culture - Preliminary NO GROWTH IN 2 DAYS Resulted 10/08/17 05:36 Blood Peripheral Anaerobic Blood Culture - Preliminary NO GROWTH IN 2 DAYS Resulted 10/08/17 05:30 Blood Peripheral Aerobic Blood Culture - Preliminary NO GROWTH IN 2 DAYS Resulted 10/08/17 05:30 Blood Peripheral Anaerobic Blood Culture - Preliminary NO GROWTH IN 2 DAYS Resulted 10/08/17 06:13 Stool Stool - Final NO ENTERIC PATHOGENS DETECTED BY PCR... Complete 10/08/17 17:30 Nasal Washing Influenza Types A,B Antigen (BANG) - Final NEGATIVE FOR FLU A AND B ANTIGEN.... Complete 10/08/17 07:28 Urine Catheterized Urine Urine Culture - Final Escherichia Coli Complete Imaging Last Impressions Chest X-Ray 10/08/17 0537 Signed Impressions: Service Date/Time: Sunday, October 08, 2017 06:34 - CONCLUSION: 1. Mild cardiomegaly with mild positive fluid balance. Hubert Dickens MD Abdomen/Pelvis CT 10/08/17 0000 Signed Impressions: Service Date/Time: Sunday, October 08, 2017 06:54 - CONCLUSION: Possible mild case of acute diverticulitis. Maria Elena Dalal MD Patient/Family Conference Family Conference Location: Bedside Issues Discussed: * Palliative care role, purpose, approach * Additional medical, psychosocial, and spiritual history * Patients general health, functional status, and cognitive changes in the months leading up to the current hospitalization * Patient/family understanding of the current medical problems, Cdiff, UTI, CVA * Patient/family understanding of prognosis * Patients goals of care as best understood from advance directives and/or conversations and/or values * Current medical treatment options and benefits/burdens of those options * Likely scenarios comparing ongoing aggressive care with a transition to comfort measures only * Questions answered to the best of my ability * Reintroduced hospice philosophy and benefits * Palliative care contact information provided Assessment and Plan Disease Oriented Problem List: (1) Severe sepsis (2) Clostridium difficile enterocolitis (3) Urinary tract infection (4) Leukocytosis (5) Diverticulitis (6) Non-ST elevation OR (NSTEMI) (7) Lactic acid acidosis (8) Elevated troponin I level Symptom Scale: (1) Decreased oral intake Comment: Patient came in complaining of decreased oral intake and nausea . (2) Generalized weakness Comment: Progressive. . (3) Physical deconditioning Pertinent Non-Medical Issues Psychosocial: Patient was born and raised in [place]. She moved to [place] in 1959. Patient has been to her for 67 years. 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 Patient has 3 adult children, 1 son and 2 daughters. Spiritual: Patient is Buddhist Legal: Family reported that patient has a living will and Community DNR Ethical issues impacting care: None identified at this time . Important Contacts Spouse- Fox Bustos- [phone] [id number], Deann [phone] . Prognosis Mrs. Bustos is a 87-year-old female with a past medical history of atrial fibrillation, CHF, CVA with right-sided weakness, chronic hypoxemic respiratory on 2 L nasal cannula at home, hypertension, hyperlipidemia, chronic kidney disease stage III, recurrent urinary tract infections, C. difficile infections 4 and diabetes mellitus. Patient presented to the ER on 10/08/17 complaining of fatigue, chills, nausea, decreased oral intake and diarrhea which has been going on for the past 3 days prior to hospital visit. Given ongoing comorbidities, multiple hospitalizations and recurrence of C. difficile and UTIs , patient remains at high risk for further complications, deterioration in decline. . Code Status: No Code Plan PLAN: Legal decision maker: Patient has a past medical history of x2 CVAs and since then has had short term memory loss. Patient is able to participate in some of the decisions in her medical care and treatment. Recommending shared decision making with her since there is component of forgetfulness. In the event that patient is incapacitated, her Fox Bustos will participate as her health care proxy. Goals: Aggressive, short of no code at this time. May consider hospice in the future. CODE STATUS: No code DNR SYMPTOMS: * Decreased oral intake: Patient came in complaining of nausea and decreased p.o. Patient endorses improvement in her appetite. Denies nausea. Has been consuming 50-100% of her meals. No recommendations. * Generalized weakness: Multifactorial. Multiple hospitalizations in the past few months. Came in complaining of fatigue, and progressive weakness, poor oral intake. PT consulted. No recommendations. * Physical deconditioning: Progressive. Patient has had multiple hospitalizations in the past 6 months mainly for x2 strokes, recurrent Cdifficile. Patient requires assistance with bathing, dressing, toileting and has had private caregivers at home with [facility]. PT consulted, recommended home health PT. Patient will most likely continue to decline. No further recommendations. Palliative care will continue to follow the patient during hospital course as condition evolves, to assist patient/decision-maker with understanding of their medical conditions, weighing benefits/burdens of treatment options, for clarification of goals of treatment. Additionally will assist with any symptoms of palliative concern Thank you for the opportunity to participate in the care of Ms. Bustos. Attestation To help prompt me to consider important information that might be impacting today's encounter and assessment, information from prior notes written by myself or my colleagues may have been "brought forward" into today's note. My signature on this note, however, is an attestation that I personally performed the exam, history, and/or decision-making noted today, and, unless otherwise indicated, the interactions with patient, family, and staff as well as the review of records all occurred today. I also attest that the listed assessment and stated plan reflect my best clinical judgment today based on the combination of historical information, prior notes, and today's exam/ interactions. When time spent is documented, it refers only to time spent today by the signer, or if indicated, combined time spent today by collaborating physician/nurse practitioner. Raul Dai Oct 10, 2017 12:53
--- NOTE | 2017-10-10 14:42 | HHI.DCPOC ---
Discharge Care Plan Diagnosis: (1) Severe sepsis (2) Bandemia (3) Leukocytosis (4) Physical deconditioning (5) Non-ST elevated myocardial infarction (6) Clostridium difficile enterocolitis (7) Urinary tract infection Goals to Promote Your Health * To prevent worsening of your condition and complications * To maintain your health at the optimal level Directions to Meet Your Goals Take your medications as prescribed Follow your dietary instruction Follow activity as directed Keep your appointments as scheduled Take your immunizations and boosters as scheduled If your symptoms worsen call your PCP, if no PCP go to Urgent Care Center or Emergency Room Smoking is Dangerous to Your Health. Avoid second hand smoke Call the 24-hour hour crisis hotline for domestic abuse at Giovanni Chavez Oct 10, 2017 14:42
[2017-10-10] MEDS ORDERED: NOVOINJ SQ (14:50)
[2017-10-10] MEDS ORDERED: LACT PO (14:50)
[2017-10-10] MEDS ORDERED: DIFI200T PO (14:50)
[2017-10-10] MEDS ORDERED: CEFU1TAB18 PO (14:50)
[2017-10-10] MEDS ORDERED: FURO20TA PO (14:50)
--- NOTE | 2017-10-10 14:56 | HHI.DCPOC ---
Discharge Care Plan Diagnosis: (1) Non-ST elevated myocardial infarction (2) Physical deconditioning (3) Clostridium difficile enterocolitis (4) Severe sepsis (5) Bandemia (6) Leukocytosis (7) Generalized weakness Goals to Promote Your Health * To prevent worsening of your condition and complications * To maintain your health at the optimal level Directions to Meet Your Goals Take your medications as prescribed Follow your dietary instruction Follow activity as directed Keep your appointments as scheduled Take your immunizations and boosters as scheduled If your symptoms worsen call your PCP, if no PCP go to Urgent Care Center or Emergency Room Smoking is Dangerous to Your Health. Avoid second hand smoke Call the 24-hour hour crisis hotline for domestic abuse at Giovanni Chavez Oct 10, 2017 14:56
--- NOTE | 2017-10-10 14:57 | HHI.FF ---
Face to Face Verification Diagnosis: (1) Physical deconditioning (2) Non-ST elevated myocardial infarction (3) Clostridium difficile enterocolitis (4) Generalized weakness (5) Severe sepsis Physical Therapy Order: Evaluate and Treat, Improve ambulation, Strength and gait training Home Health Nursing Order: Medical education Signs/symptoms of disease process Oxygen administration education Nursing assessment with vital signs I have seen patient Jocelin Bustos on 10/10/17. My clinical findings support the need for the requested home health care services because: Ltd mobility - disease progression Deconditioned w/ increased weakness Limited ability to care for self I certify that my clinical findings support that this patient is homebound because: Hx COPD- exertion dyspnea/weakness Unsteady gait/balance Unsafe to leave home unassisted Giovanni Chavez Oct 10, 2017 14:57
--- NOTE | 2017-10-10 15:07 | HHI.DS ---
Discharge Summary Admission Date Oct 08, 2017 at 07:30 Discharge Date: Oct 10, 2017 Admitting Diagnosis sepsis; diarrheal illness; elevated troponin I/nstemi; DM (1) Severe sepsis ICD Code: A41.9 - Sepsis, unspecified organism; R65.20 - Severe sepsis without septic shock Diagnosis: Principal (2) Diverticulitis ICD Code: K57.92 - Diverticulitis of intestine, part unspecified, without perforation or abscess without bleeding Diagnosis: Principal (3) Urinary tract infection ICD Code: N39.0 - Urinary tract infection, site not specified Diagnosis: Principal (4) Diarrhea in adult patient ICD Code: R19.7 - Diarrhea, unspecified Diagnosis: Principal Status: Acute (5) Lactic acid acidosis ICD Code: E87.2 - Acidosis Diagnosis: Principal (6) Leukocytosis ICD Code: D72.829 - Elevated white blood cell count, unspecified Diagnosis: Principal Status: Resolved (7) Bandemia ICD Code: D72.825 - Bandemia Diagnosis: Principal (8) Non-ST elevated myocardial infarction ICD Code: I21.4 - Non-ST elevation (NSTEMI) myocardial infarction Diagnosis: Principal (9) Elevated troponin I level ICD Code: R74.8 - Abnormal levels of other serum enzymes Diagnosis: Principal Status: Acute (10) Atrial fibrillation ICD Code: I48.91 - Unspecified atrial fibrillation Diagnosis: Principal Status: Acute Procedures 10/09 echocardiogram shows ejection fraction 50-55%, severe pulmonary hypertension with PA peak pressure greater than 70, perivalvular regurgitation a prosthetic aortic valve, 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 Is indicated that recently she had finished a course of Cipro antibiotic but does not know why she was on it. There has been history of clostridium difficile infection in the past. Patient indicates that her symptoms have started proximal to 3 days ago with generalized weakness poor by mouth intake, nausea, diarrhea. There is no episodes of any hematemesis, coffee -ground emesis. Upon evaluating patient in emergency department she is having significant diarrhea. She had to get out of bed 2 times in order to have a bowel movement while I was examining her. Patient does indicate that she has only had nausea, she denies any vomiting. Upon presentation she did have O2 saturation 85% on room air. She does have chronic respiratory failure which she is on oxygen at home. They placed on 2 L nasal cannula in O2 saturation with back up to 95%. Workup did indicate severe sepsis with leukocytosis with bandemia. Infectious source are multi-factorial with diverticulitis and urinary tract infection. Workup also indicates non-ST elevated myocardial infarction with elevated troponin, EKG showed atrial fibrillation with possible left bundle branch block. ER physician recommended patient be admitted to ICU with critical care management. CBC/BMP: 10/10/17 0429 10/10/17 0429 Significant Findings Laboratory Tests Test 10/08/17 05:30 10/08/17 06:13 10/08/17 07:28 10/08/17 09:20 White Blood Count 26.9 TH/MM3 (4.0-11.0) Hemoglobin 10.9 GM/DL (11.6-15.3) Mean Corpuscular Volume 78.6 FL (80.0-100.0) Mean Corpuscular Hemoglobin 24.5 PG (27.0-34.0) Mean Corpuscular Hemoglobin Concent 31.2 % (32.0-36.0) Red Cell Distribution Width 17.9 % (11.6-17.2) Neutrophils (%) (Auto) 86.5 % (16.0-70.0) Lymphocytes (%) (Auto) 3.2 % (9.0-44.0) Basophils (%) (Auto) 2.3 % (0.0-2.0) Neutrophils # (Auto) 23.3 TH/MM3 (1.8-7.7) Lymphocytes # (Auto) 0.9 TH/MM3 (1.0-4.8) Monocytes # (Auto) 2.1 TH/MM3 (0-0.9) Basophils # (Auto) 0.6 TH/MM3 (0-0.2) Neutrophils % (Manual) 79 % (16-70) Band Neutrophils % 11 % (0-6) Lymphocytes % 4 % (9-44) Neutrophils # (Manual) 24.2 TH/MM3 (1.8-7.7) Ovalocytes 1+ (NORMAL) Blood Urea Nitrogen 23 MG/DL (7-18) Creatinine 1.40 MG/DL (0.50-1.00) Albumin 3.1 GM/DL (3.4-5.0) Aspartate Amino Transf (AST/SGOT) 38 U/L (15-37) Estimat Glomerular Filtration Rate 36 ML/MIN (>89) Lactic Acid Level 2.7 mmol/L (0.4-2.0) Troponin I 0.37 NG/ML (0.02-0.05) Stool C. difficile Toxin (PCR) POSITIVE (NEGATIVE) Stl C. difficile Toxin Epiderm 027 PRESUMPTIVE POSITIVE Urine Nitrite POS (NEG) Urine Leukocyte Esterase TRACE (NEG) Urine WBC 25-49 /hpf (0-5) Urine WBC Clumps MANY (NONE) Urine Bacteria MANY /hpf (NONE) Test 10/08/17 09:22 10/08/17 11:45 10/08/17 13:15 10/08/17 17:38 Prothrombin Time 12.0 SEC (9.8-11.6) Activated Partial Thromboplast Time 30.5 SEC (24.3-30.1) Blood Urea Nitrogen 22 MG/DL (7-18) Creatinine 1.20 MG/DL (0.50-1.00) Calcium Level 7.8 MG/DL (8.5-10.1) Potassium Level 3.1 MEQ/L (3.5-5.1) Estimat Glomerular Filtration Rate 42 ML/MIN (>89) Troponin I 0.51 NG/ML (0.02-0.05) 0.38 NG/ML (0.02-0.05) White Blood Count 24.4 TH/MM3 (4.0-11.0) Red Blood Count 3.88 MIL/MM3 (4.00-5.30) Hemoglobin 9.2 GM/DL (11.6-15.3) Hematocrit 30.4 % (35.0-46.0) Mean Corpuscular Volume 78.3 FL (80.0-100.0) Mean Corpuscular Hemoglobin 23.8 PG (27.0-34.0) Mean Corpuscular Hemoglobin Concent 30.4 % (32.0-36.0) Red Cell Distribution Width 18.2 % (11.6-17.2) Neutrophils (%) (Auto) 88.9 % (16.0-70.0) Lymphocytes (%) (Auto) 4.5 % (9.0-44.0) Neutrophils # (Auto) 21.6 TH/MM3 (1.8-7.7) Monocytes # (Auto) 1.6 TH/MM3 (0-0.9) Test 10/09/17 05:50 10/10/17 04:29 White Blood Count 17.1 TH/MM3 (4.0-11.0) Red Blood Count 3.52 MIL/MM3 (4.00-5.30) 3.28 MIL/MM3 (4.00-5.30) Hemoglobin 8.3 GM/DL (11.6-15.3) 8.1 GM/DL (11.6-15.3) Hematocrit 27.5 % (35.0-46.0) 26.5 % (35.0-46.0) Mean Corpuscular Volume 78.2 FL (80.0-100.0) Mean Corpuscular Hemoglobin 23.7 PG (27.0-34.0) 24.8 PG (27.0-34.0) Mean Corpuscular Hemoglobin Concent 30.3 % (32.0-36.0) 30.8 % (32.0-36.0) Red Cell Distribution Width 17.7 % (11.6-17.2) 18.2 % (11.6-17.2) Mean Platelet Volume 6.9 FL (7.0-11.0) Neutrophils (%) (Auto) 85.9 % (16.0-70.0) 74.9 % (16.0-70.0) Lymphocytes (%) (Auto) 7.9 % (9.0-44.0) Neutrophils # (Auto) 14.7 TH/MM3 (1.8-7.7) Blood Urea Nitrogen 26 MG/DL (7-18) 23 MG/DL (7-18) Creatinine 1.30 MG/DL (0.50-1.00) 1.30 MG/DL (0.50-1.00) Random Glucose 118 MG/DL (74-106) 136 MG/DL (74-106) Total Protein 6.1 GM/DL (6.4-8.2) Albumin 2.6 GM/DL (3.4-5.0) Calcium Level 8.0 MG/DL (8.5-10.1) 7.8 MG/DL (8.5-10.1) Chloride Level 110 MEQ/L (98-107) 112 MEQ/L (98-107) Estimat Glomerular Filtration Rate 39 ML/MIN (>89) 39 ML/MIN (>89) Rouleau PRESENT (NORMAL) Carbon Dioxide Level 20.7 MEQ/L (21.0-32.0) Imaging Last Impressions Chest X-Ray 10/08/17 0537 Signed Impressions: Service Date/Time: Sunday, October 08, 2017 06:34 - CONCLUSION: 1. Mild cardiomegaly with mild positive fluid balance. Hubert Dickens MD Abdomen/Pelvis CT 10/08/17 0000 Signed Impressions: Service Date/Time: Sunday, October 08, 2017 06:54 - CONCLUSION: Possible mild case of acute diverticulitis. Maria Elena Dalal MD Hospital Course 87-year-old female originally presented on 10/08/17 because of fever, chills, nausea, diarrhea. She had recently finished a dose of Cipro and still has been feeling ill. 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 Patient was admitted to the ICU, patient was given a total of 4 L of normal saline boluses for blood pressure management, empirical antibiotic coverage. Stool studies were performed which did indicate recurrent clostridium difficile. Infectious disease was consulted and because this is her fourth episode she was started on Dificid for 10 days. Her urinalysis did indicate Escherichia coli in which she was discontinued on IV antibiotics and started on Ceftin. 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 Jiang was consulted. Dr. Jasmine who is covering evaluated her and indicated that likely demand ischemia from underlying severe sepsis. Recommended medical management and outpatient follow- up. Patient did undergo echocardiogram which did show ejection fraction 50-55% , however severe home antihypertension. Patient has been converted to all by mouth medications this time. She clinically has improved. She has gone from having 30 bowel movements a day down to having 4 bowel movements in last 24 hours. Family was concerned about her post hospital care and did inquire about hospice. Hospice did evaluate the patient and talk to the family and is not willing to accept hospice at this time. Palliative care was consulted for goals of care. wants the patient to go home. He has contacted home health in order to assume management when she gets home. He does have multiple concerns about her care with the infections, her heart, strength, antibiotics. I have had multiple prolonged discussions with him concerning his 's care. It appears if I did answer his questions appropriately and with understanding. Patient is clinically stable at this time for discharge. does not know if he can get everything arranged today for her discharge , he would like her to stay tonight and he can take her home tomorrow morning. I consulted case management to make arrangements for discharge whenever home health care has been arranged and when family is willing to take her home. Pt Condition on Discharge: Stable Discharge Disposition: Disch w/ Home Health Serv Discharge Time: > 30 minutes Discharge Instructions DIET: Follow Instructions for: Diabetic Diet Activities you can perform: Regular-No Restrictions Activities to Avoid: Driving for 24 hrs Follow up Referrals: Cardiology - 1 Week PCP Follow-up - 1 Week New Medications: Furosemide (Furosemide) 20 Mg Tab 20 MG PO DAILY for Blood Pressure Management, #30 TAB 0 Refills Insulin Aspart Inj (Novolog Penfill Inj) 300 Unit/3 Ml Pen 2-10 UNITS SQ TIDAC PRN for Blood Sugar Management, #6 BOX 0 Refills Sliding scale insulin, blood glucose 150-200, use 2 units of insulin; blood glucose 201-250, use 4 units of insulin, blood glucose 251-300, use 6 units of insulin, blood glucose 301-350, use 8 units of insulin, greater than 351 give 10 units of insulin and call M.D. Cefuroxime (Ceftin) 250 Mg Tab 250 MG PO Q12HR for Infection, #6 TAB Fidaxomicin (Dificid) 200 Mg Tab 200 MG PO BID for Clostridium difficile, #14 TAB Lactobacillus Acidophilus (Acidophilus/l-Sporogenes) 35 Million Cell-25 Million Cell Tab 1 TAB PO Q12HR for GI protection, #20 TAB Continued Medications: Apixaban (Eliquis) 2.5 Mg Tab 2.5 MG PO BID for Blood Clot Prevention, TAB 0 Refills Ascorbic Acid (Vitamin C) 250 Mg Tab 1000 MG PO for Nutritional Supplement, TAB 0 Refills Aspirin (Aspirin Children's) 81 Mg Chew 162 MG CHEW DAILY, TAB 0 Refills Carvedilol (Carvedilol) 12.5 Mg Tab 12.5 MG PO BID, #60 TAB 0 Refills Fluticasone-Vilanterol Inh (Breo Ellipta Inh) 100-25 Mcg/Act Inh 1 PUFF INH DAILY, #1 INHALER 0 Refills Use daily at the same time. Discontinued Medications: Furosemide (Furosemide) 20 Mg Tab 20 MG PO BID, #60 TAB 0 Refills Insulin Human NPH Inj (Novolin N Inj) 1,000 Unit/10 Ml Vial 30 UNITS SQ BID for Blood Sugar Management, #10 ML 0 Refills Giovanni Chavez Oct 10, 2017 15:06
[2017-10-11] VITALS (19 sets, daily range): BP systolic 131–170; BP diastolic 78–90; PULSE 80–106; RESP 19–39; TEMP 98.6–98.9; O2SAT 94–100
[2017-10-11] MEDS: CHLORHEXIDINE GLUCONATE 2 % 1 PACK (2 CLOTHS) TOP SCH (04:00)
[2017-10-11] MEDS: RESP: ALBUTEROL 2.5 MG/IPRATROPIUM 0.5 MG NEB (SCH) INH (07:50)
[2017-10-11] MEDS: SODIUM CHLORIDE 0.9% FLUSH 10 ML FLUSH IV FLUSH SCH (09:00)
[2017-10-11] MEDS: CEFUROXIME AXETIL 250 MG TAB PO SCH (09:00)
[2017-10-11] MEDS: INSULIN ASPART SUPPLEMENTAL SCALE SQ SCH (09:08)
[2017-10-11] MEDS: ASPIRIN EC 81 MG TABEC PO SCH (09:08)
[2017-10-11] MEDS: CARVEDILOL 12.5 MG TAB PO SCH (09:09)
[2017-10-11] MEDS: FAMOTIDINE 20 MG TAB PO SCH (09:09)
[2017-10-11] MEDS: LACTOBACILLUS ACIDOPHILUS TAB PO SCH (09:10)
[2017-10-11] MEDS: APIXABAN 2.5 MG TABLET PO SCH (09:10)
[2017-10-11] MEDS: FIDAXOMICIN 200 MG TAB PO SCH (09:12)
== END 2017-10-11 11:40 | disposition home health service (06) | DRG 871 ==
LOC: PHED 05:19 → UNDOADMIN 05:45 → PHEDA 05:45 → PHICU 08:30
PROVIDERS: ADMIT Hospitalist; ATTEND Hospitalist
DX: A41.4 Sepsis due to anaerobes (principal); I21.A1 Myocardial infarction type 2; A04.71 Enterocolitis due to Clostridium difficile, recurrent; J96.11 Chronic respiratory failure with hypoxia; I42.9 Cardiomyopathy, unspecified; E87.2 Acidosis; I48.91 Unspecified atrial fibrillation; E11.22 Type 2 diabetes mellitus with diabetic chronic kidney disease; E86.0 Dehydration; I13.0 Hypertensive heart and chronic kidney disease with heart failure and stage 1 through stage 4 chronic kidney disease, or unspecified chronic kidney disease; I69.351 Hemiplegia and hemiparesis following cerebral infarction affecting right dominant side; N39.0 Urinary tract infection, site not specified; K57.32 Diverticulitis of large intestine without perforation or abscess without bleeding; G25.81 Restless legs syndrome; I50.9 Heart failure, unspecified; R65.20 Severe sepsis without septic shock; B96.20 Unspecified Escherichia coli [E. coli] as the cause of diseases classified elsewhere; J44.9 Chronic obstructive pulmonary disease, unspecified; E78.5 Hyperlipidemia, unspecified; N18.3 Chronic kidney disease, stage 3 (moderate); I44.7 Left bundle-branch block, unspecified; Z66 Do not resuscitate; I27.20 Pulmonary hypertension, unspecified; I25.2 Old myocardial infarction; Z87.440 Personal history of urinary (tract) infections; Z99.81 Dependence on supplemental oxygen; Z79.4 Long term (current) use of insulin; Z79.01 Long term (current) use of anticoagulants; Z95.2 Presence of prosthetic heart valve
CPT/HCPCS: 71045; 74176; 80048; 80053; 81001; 82010; 82550; 82552; 82948; 83605; 83690; 83735; 84100; 84484; 85007; 85025; 85027; 85610; 85730; 87040; 87077; 87086; 87186; 87493; 87506; 87641; 87804; 93005; 93306; 94150; 94640; 94664; 96361; 96365; 96375; J1815; J2405; J2543; J3370; J3480; J7030; J7050

== ENCOUNTER 2017-11-05 10:06 | Inpatient (IN) | payer MEDICARE ==
[~2017-11-05] VITALS: Ht 165.1 cm; Wt 76.2 kg
[~2017-11-05 10:06] MED LIST changes: -AMIT25TA9 PO; +APIX2.5T PO; -ASPI81CH7 CHEW; +ASPI81CH7 PO; +CARV12.52 PO; +CEFU1TAB18 PO; +DIFI200T PO; +LACT PO; -LOSA50TA PO; -METR-1 PO; +NOVOINJ SQ; -NOVONP2 SQ; -ROSU1TAB10 PO; +VITA250T3 PO; -XARE15TA PO
[2017-11-05 10:21] VITALS: BP 106/55; PULSE 85; RESP 20; TEMP 99.3; O2SAT 92
[2017-11-05 10:38] VITALS: BP 106/55; PULSE 77; RESP 27; TEMP 99.3; O2SAT 94
[2017-11-05] MEDS ORDERED: ACETAMINOPHEN 325 MG TAB PO ONE (10:45)
[2017-11-05] MEDS ORDERED: SODIUM CHLOR 0.9% 1000 ML INJ 1,000 ML IV ONE (10:45)
[2017-11-05] MEDS ORDERED: RESP: ALBUTEROL 2.5 MG/IPRATROPIUM 0.5 MG NEB (SCH) NEB ONE (10:45)
--- NOTE | 2017-11-05 10:48 | PD ---
HPI Chief Complaint: Respiratory Symptoms Time Seen by Provider: 10:33 Travel History International Travel<30 days: No Contact w/Intl Traveler<30days: No Traveled to known affect area: No History of Present Illness HPI The patient is a 87-year-old female who presents to the emergency department from a longterm facility for fever, cough, shortness of breath , and diarrhea. The patient has a recent history of multiple admissions after area valve replacement. The patient had C. difficile, failed treatment with Flagyl and vancomycin, was placed on another medication. Apparently the patient has been in a longterm, has not recently had treatment, developed diarrhea once again last night. According to family members, nursing staff at the longterm facility stated the patient had diarrhea last night, approximately 6 episodes. The patient also developed a fever last night as high as 102, she does complain of cough and shortness of breath. Symptoms are moderate. The patient did receive a breathing treatment prior to arrival via EMS with improvement of her symptoms. The patient was on oxygen, 2 L via nasal cannula, until one week ago. PFSH Past Medical History Arthritis: Yes Asthma: No Atrial Fibrillation: Yes Autoimmune Disease: No Blood Disorders: No Anxiety: No Depression: No Heart Rhythm Problems: Yes (A-FIB) Cancer: No Cardiomyopathy: Yes Cardiovascular Problems: Yes (A-FIB, TAVR) High Cholesterol: Yes (HAD RHABDO) Chest Pain: No Congestive Heart Failure: Yes COPD: Yes (O2 depend) Cerebrovascular Accident: Yes (CVA X3 R SIDED WEAKNESS) Diabetes: Yes (INSULIN ONLY) Patient Takes Glucophage: No Diminished Hearing: No Endocrine: Yes Gastrointestinal Disorders: Yes (c diff) GERD: No Genitourinary: Yes Headaches: No Hepatitis: No Hiatal Hernia: No Hypertension: Yes Immune Disorder: No Musculoskeletal: Yes Neurologic: Yes Psychiatric: No Reproductive: No Respiratory: Yes Migraines: No Myocardial Infarction: No Renal Failure: Yes Seizures: No Ulcer: No Tetanus Vaccination: < 5 Years Influenza Vaccination: Yes : 3 Para: 3 Miscarriage: 0 : 0 Past Surgical History Abdominal Surgery: No Appendectomy: No Cardiac Surgery: No Cholecystectomy: No Endocrine Surgery: No Genitourinary Surgery: No Gynecologic Surgery: No Hysterectomy: Yes Thoracic Surgery: No Other Surgery: Yes (CYST REMOVAL) Social History Alcohol Use: No Tobacco Use: No Substance Use: No Allergies-Medications (Allergen,Severity, Reaction): Coded Allergies: ropinirole (Verified Allergy, Severe, Anaphylaxis, 11/05/17) Reported Meds & Prescriptions Reported Meds & Active Scripts Active Furosemide 20 Mg Tab 20 Mg PO DAILY Reported Zofran (Ondansetron HCl) 4 Mg Tab 4 Mg PO Q6HR PRN Tylenol (Acetaminophen) 325 Mg Tab 650 Mg PO Q6H PRN Rica-Tussin (Guaifenesin) 100 Mg/5 Ml Syp 200 Mg PO Q8HR PRN Cholestyramine 4 Gm/Pkt Powd 4 Gm PO Q8HR PRN 1 packet contains 4 grams of cholestyramine. Duoneb (Ipratropium-Albuterol Neb) 0.5-2.5 Mg/3 Ml Neb 3 Ml NEB Q6HR Humalog Inj (Insulin Human Lispro) 1,000 Unit/10 Ml Vial 2-10 Units SQ TIDAC SLIDING SCALE: if 151-200=2 units (call MD if <70), 201-250=4 units, 251-300=6 units, 301-350=8 units, 351-400=10 units (call MD if >401) Prednisone 10 Mg Tab 10 Mg PO BID 3 Days Flonase Nasal [place] (Fluticasone Nasal [place]) 50 Mcg/Act [place] 1 [place] EACH NARE BID Ferrous Sulfate 325 Mg (65 Mg Iron) Tablet 325 Mg PO BID Give with food Aldactone (Spironolactone) 25 Mg Tab 12.5 Mg PO DAILY Lisinopril 2.5 Mg Tab 2.5 Mg PO DAILY Isosorbide Mononitrate ER (Isosorbide Mononitrate) 60 Mg Tab 60 Mg PO DAILY Diff-Stat (Probiotic Product) 471 Mg Cap 471 Mg PO DAILY Vitamin C (Ascorbic Acid) 250 Mg Tab 500 Mg PO DAILY Medication on hold from 11/01/17-11/15/17 Eliquis (Apixaban) 2.5 Mg Tab 2.5 Mg PO BID Carvedilol 12.5 Mg Tab 12.5 Mg PO BID Breo Ellipta Inh (Fluticasone/Vilanterol) 100-25 Mcg/Act Inh 1 Puff INH DAILY Use daily at the same time. Aspirin Children's (Aspirin) 81 Mg Chew 81 Mg PO DAILY Review of Systems Except as stated in HPI: all other systems reviewed are Neg General / Constitutional: No: Fever HENT: No: Lightheadedness Cardiovascular: No: Chest Pain or Discomfort Respiratory: Positive: Cough, Shortness of Breath Gastrointestinal: Positive: Nausea, Diarrhea, No: Vomiting, Abdominal Pain Musculoskeletal: Positive: Weakness Neurologic: Positive: Weakness, Change in Mentation (recent short term memory problems which have progressed after recent strokes) Physical Exam Narrative GENERAL: Awake, alert, 87 year-old female who appears her stated age and is in mild respiratory distress. SKIN: Focused skin assessment warm/dry. HEAD: Atraumatic. Normocephalic. EYES: No injection or drainage. ENT: No nasal bleeding or discharge. Slightly dry mucous membranes. NECK: Trachea midline. No JVD. CARDIOVASCULAR: Irregularly irregular. Heart rate in the 80s. RESPIRATORY: No accessory muscle use. Scattered rhonchi noted. GASTROINTESTINAL: Abdomen soft, non-tender, nondistended. No rebound tenderness. MUSCULOSKELETAL: No obvious deformities. No clubbing. No cyanosis. No edema. NEUROLOGICAL: Awake and alert. No obvious cranial nerve deficits. Motor grossly within normal limits. Normal speech. PSYCHIATRIC: Appropriate mood and affect; insight and judgment normal. Data Data Last Documented VS Vital Signs Date Time Temp Pulse Resp B/P (MAP) Pulse Ox O2 Delivery O2 Flow Rate FiO2 11/05/17 12:45 92 30 119/60 (79) 97 Nasal Cannula 4.00 11/05/17 10:38 99.3 Orders Orders Sepsis Workup Initiated (11/05/17 ) Electrocardiogram (11/05/17 10:41) Complete Blood Count With Diff (11/05/17 10:41) Comprehensive Metabolic Panel (11/05/17 10:41) Lactic Acid Sepsis Protocol (11/05/17 10:41) Magnesium (Mg) (11/05/17 10:41) Ckmb (Isoenzyme) Profile (11/05/17 10:41) Troponin I (11/05/17 10:41) Urinalysis - C+S If Indicated (11/05/17 10:41) Influenzae A/B Antigen (11/05/17 10:41) Blood Culture (11/05/17 10:41) Chest, Single Ap (11/05/17 10:41) Blood Glucose (11/05/17 10:41) Ecg Monitoring (11/05/17 10:41) Iv Access Insert/Monitor (11/05/17 10:41) Oximetry (11/05/17 10:41) Oxygen Administration (11/05/17 10:41) Acetaminophen (Tylenol) (11/05/17 10:45) Sodium Chlor 0.9% 1000 Ml Inj (Ns 1000 M (11/05/17 10:45) Albuterol-Ipratropium Neb (Duoneb Neb) (11/05/17 10:45) C Diff Toxin Pcr (11/05/17 10:41) Cefepime Inj (Maxipime Inj) (11/05/17 11:45) Azithromycin Inj (Zithromax Inj) (11/05/17 11:45) Admit Order (Ed Use Only) (11/05/17 13:03) Labs Laboratory Tests Test 11/05/17 11:05 White Blood Count 18.8 TH/MM3 Red Blood Count 4.18 MIL/MM3 Hemoglobin 10.0 GM/DL Hematocrit 31.6 % Mean Corpuscular Volume 75.6 FL Mean Corpuscular Hemoglobin 24.0 PG Mean Corpuscular Hemoglobin Concent 31.7 % Red Cell Distribution Width 19.7 % Platelet Count 251 TH/MM3 Mean Platelet Volume 7.9 FL Neutrophils (%) (Auto) 85.9 % Lymphocytes (%) (Auto) 4.5 % Monocytes (%) (Auto) 9.4 % Eosinophils (%) (Auto) 0.0 % Basophils (%) (Auto) 0.2 % Neutrophils # (Auto) 16.1 TH/MM3 Lymphocytes # (Auto) 0.9 TH/MM3 Monocytes # (Auto) 1.8 TH/MM3 Eosinophils # (Auto) 0.0 TH/MM3 Basophils # (Auto) 0.0 TH/MM3 CBC Comment DIFF FINAL Differential Comment Blood Urea Nitrogen 41 MG/DL Creatinine 1.67 MG/DL Random Glucose 226 MG/DL Total Protein 6.9 GM/DL Albumin 2.6 GM/DL Calcium Level 8.3 MG/DL Magnesium Level 1.7 MG/DL Alkaline Phosphatase 60 U/L Aspartate Amino Transf (AST/SGOT) 23 U/L Alanine Aminotransferase (ALT/SGPT) 12 U/L Total Bilirubin 0.6 MG/DL Sodium Level 127 MEQ/L Potassium Level 4.4 MEQ/L Chloride Level 97 MEQ/L Carbon Dioxide Level 18.3 MEQ/L Anion Gap 12 MEQ/L Estimat Glomerular Filtration Rate 29 ML/MIN Lactic Acid Level 1.8 mmol/L Total Creatine Kinase 40 U/L Troponin I LESS THAN 0.02 NG/ML [facility] Medical Decision Making Medical Screen Exam Complete: Yes Emergency Medical Condition: Yes Medical Record Reviewed: Yes Interpretation(s) EKG reveals atrial fibrillation with a rate 84. Intraventricular conduction delay with QRS 141 ms. Last Impressions Chest X-Ray 11/05/17 1041 Signed Impressions: Service Date/Time: Sunday, November 05, 2017 10:54 - CONCLUSION: There is a new parenchymal infiltrate in the right lower lung suggestive of pneumonia. Leo Thapa MD Laboratory Tests Test 11/05/17 11:05 White Blood Count 18.8 TH/MM3 Red Blood Count 4.18 MIL/MM3 Hemoglobin 10.0 GM/DL Hematocrit 31.6 % Mean Corpuscular Volume 75.6 FL Mean Corpuscular Hemoglobin 24.0 PG Mean Corpuscular Hemoglobin Concent 31.7 % Red Cell Distribution Width 19.7 % Platelet Count 251 TH/MM3 Mean Platelet Volume 7.9 FL Neutrophils (%) (Auto) 85.9 % Lymphocytes (%) (Auto) 4.5 % Monocytes (%) (Auto) 9.4 % Eosinophils (%) (Auto) 0.0 % Basophils (%) (Auto) 0.2 % Neutrophils # (Auto) 16.1 TH/MM3 Lymphocytes # (Auto) 0.9 TH/MM3 Monocytes # (Auto) 1.8 TH/MM3 Eosinophils # (Auto) 0.0 TH/MM3 Basophils # (Auto) 0.0 TH/MM3 CBC Comment DIFF FINAL Differential Comment Blood Urea Nitrogen 41 MG/DL Creatinine 1.67 MG/DL Random Glucose 226 MG/DL Total Protein 6.9 GM/DL Albumin 2.6 GM/DL Calcium Level 8.3 MG/DL Magnesium Level 1.7 MG/DL Alkaline Phosphatase 60 U/L Aspartate Amino Transf (AST/SGOT) 23 U/L Alanine Aminotransferase (ALT/SGPT) 12 U/L Total Bilirubin 0.6 MG/DL Sodium Level 127 MEQ/L Potassium Level 4.4 MEQ/L Chloride Level 97 MEQ/L Carbon Dioxide Level 18.3 MEQ/L Anion Gap 12 MEQ/L Estimat Glomerular Filtration Rate 29 ML/MIN Lactic Acid Level 1.8 mmol/L Total Creatine Kinase 40 U/L Troponin I LESS THAN 0.02 NG/ML Differential Diagnosis Differential diagnosis includes C. difficile, pneumonia, bronchitis, sepsis, dehydration, UTI, pyelonephritis. Narrative Course IV was established, labs are drawn and sent, and the patient was placed on cardiac telemetry monitoring and continuous pulse oximetry monitoring. Chest x- ray was obtained. UA was sent to lab. C. difficile PCR was sent to lab. The patient was administered DuoNeb and IV fluids. Chest x-ray reveals right lower lobe pneumonia, white count is 18.8, patient has been hospitalized lately and is in a longterm facility. Therefore, patient was treated for healthcare acquired pneumonia with cefepime and Zithromax. Patient's creatinine is elevated 1.67, sodium is low 127. Lactic acid is normal 1.8. Patient has right lower lobe pneumonia with sepsis criteria, will be admitted. C. difficile PCR was pending. The on-call medical service was paged for admission. Sepsis Criteria SIRS Criteria (2 or more): RR > 20 or PaCO2 < 32, WBC > 87815, < 4000 or > 10 % bands Sepsis Criteria (SIRS+source): Infect source susp/known Physician Communication Physician Communication The on-call medical service was paged for admission. I discussed the patient with Dr. Olivera who agrees with admission. Diagnosis Primary Impression: Right lower lobe pneumonia Qualified Codes: J18.1 - Lobar pneumonia, unspecified organism Additional Impression: Sepsis Qualified Codes: A41.9 - Sepsis, unspecified organism Admitting Information Admitting Physician Requests: Admit Condition: Stable Juan Luis Colindres MD Nov 05, 2017 10:47
--- NOTE | 2017-11-05 11:11 | RADRPT ---
EXAM DATE/TIME: 11/05/2017 10:54 [facility] COMPARISON: CHEST SINGLE AP, October 08, 2017, 6:34. INDICATIONS : Cough. Fever. MEDICAL HISTORY : Cardiovascular disease. Diabetes mellitus type 2. Renal failure, chronic.HTN, AFIB SURGICAL HISTORY : Hysterectomy. Hx of pelvic fx as a child ENCOUNTER: Initial ACUITY: 4 - 6 days PAIN SCORE: 0/10 LOCATION: Bilateral chest FINDINGS: A single view of the chest demonstrates a new parenchymal infiltrate in the right lower lung. The lef t lung is clear. The heart is enlarged with stable. There is stable elevation of the right hemidiaphr agm. No definite pleural effusions.. CONCLUSION: There is a new parenchymal infiltrate in the right lower lung suggestive of pneumonia. Leo Thapa MD on November 05, 2017 at 11:08 Board Certified Radiologist. This report was verified electronically.
[2017-11-05] MEDS ORDERED: AZITHROMYCIN INJ 500 MG in SODIUM CHLOR 0.9% 250 ML INJ 250 ML IV ONE (11:45)
[2017-11-05] MEDS ORDERED: CEFEPIME INJ 2,000 MG in SODIUM CHLORIDE 0.9% INJ 100 ML IV ONE (11:45)
[2017-11-05] MEDS ORDERED: ZOFR4TAB PO (11:49)
[2017-11-05] MEDS ORDERED: LISI2.5T3 PO (11:49)
[2017-11-05] MEDS ORDERED: FLUT1SPR5 EACH NARE (11:49)
[2017-11-05] MEDS ORDERED: [UNRECOGNIZED DRUG - CODE] PO (11:49)
[2017-11-05] MEDS ORDERED: CHOL4POW4 PO (11:49)
[2017-11-05] MEDS ORDERED: SPIR25 PO (11:49)
[2017-11-05] MEDS ORDERED: IPRASOL NEB (11:49)
[2017-11-05] MEDS ORDERED: DIFFCHW PO (11:49)
[2017-11-05] MEDS ORDERED: PRED10 PO (11:49)
[2017-11-05] MEDS ORDERED: FERR325T18 PO (11:49)
[2017-11-05] MEDS ORDERED: TYLE325T PO (11:49)
[2017-11-05] MEDS ORDERED: HUMALOG SQ (11:49)
[2017-11-05] MEDS ORDERED: ISOS60TA PO (11:49)
[2017-11-05 12:02] LABS: AUTOMATED NEUTROPHIL # 16.1 TH/MM3 (1.8-7.7); BASOPHIL % 0.2 % (0.0-2.0); HEMATOCRIT 31.6 % (35.0-46.0); LYMPH % 4.5 % (9.0-44.0); LYMPHOCYTE # 0.9 TH/MM3 (1.0-4.8); MEAN CELL VOLUME 75.6 FL (80.0-100.0); MEAN CORPUSCULAR HGB CONC 31.7 % (32.0-36.0); MEAN PLATELET VOLUME 7.9 FL (7.0-11.0); MONO % 9.4 % (0.0-8.0); MONOCYTE # 1.8 TH/MM3 (0-0.9); NEUT % 85.9 % (16.0-70.0); PLATELET COUNT 251 TH/MM3 (150-450); RED BLOOD COUNT 4.18 MIL/MM3 (4.00-5.30); RED CELL DISTRIBUTION WIDTH 19.7 % (11.6-17.2); WHITE BLOOD COUNT 18.8 TH/MM3 (4.0-11.0)
[2017-11-05 12:40] LABS: ALBUMIN 2.6 GM/DL (3.4-5.0); ALKALINE PHOSPHATASE 60 U/L (45-117); ALT (GPT) 12 U/L (10-53); AST (GOT) 23 U/L (15-37); BICARBONATE 18.3 MEQ/L (21.0-32.0); BLOOD UREA NITROGEN 41 MG/DL (7-18); CALCIUM 8.3 MG/DL (8.5-10.1); CHLORIDE 97 MEQ/L (98-107); CREATININE 1.67 MG/DL (0.50-1.00); GLOMERULAR FILTRATION RATE 29 ML/MIN (>89); GLUCOSE,RANDOM 226 MG/DL (74-106); MAGNESIUM 1.7 MG/DL (1.5-2.5); SODIUM (NA) 127 MEQ/L (136-145); TOTAL BILIRUBIN ADULT 0.6 MG/DL (0.2-1.0); TOTAL PROTEIN 6.9 GM/DL (6.4-8.2); TROPONIN I LESS THAN 0.02 NG/ML (0.02-0.05)
[2017-11-05 12:45] VITALS: BP 119/60; PULSE 92; RESP 30; O2SAT 97
[2017-11-05] MEDS ORDERED: ACETAMINOPHEN 325 MG TAB PO PRN (13:30)
[2017-11-05] MEDS ORDERED: SODIUM CHLORIDE 0.9% FLUSH 10 ML FLUSH IV FLUSH PRN (13:30)
[2017-11-05] MEDS ORDERED: RESP: ALBUTEROL 2.5 MG/IPRATROPIUM 0.5 MG NEB (PRN) INH (13:30)
--- NOTE | 2017-11-05 13:38 | HHI.HP ---
HPI Service [facility] Primary Care Physician Rojas Pickens MD Admission Diagnosis right lower lobe pneumonia, sepsis, leukocytosis, URSULA Diagnoses: Chief Complaint: Cough, shortness of breath, fever and chills Travel History International Travel<30 Days: No Contact w/Intl Traveler <30 Da: No Traveled to Known Affected Are: No Sepsis Criteria SIRS Criteria (2 or more): Temp > 100.9 or < 96.8, RR > 20 or PaCO2 < 32, WBC > 84755, < 4000 or > 10% bands Sepsis Criteria (SIRS+source): Infect source susp/known History of Present Illness 87-year-old female with a medical history significant for atrial fibrillation, aortic valve replacement, CHF, history of CVA 2 presents to the custodial from a rehabilitation facility with complaints of cough, shortness of breath, fevers. 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 History obtained from her daughter and at bedside. They report the patient was doing fairly well at the rehabilitation facility until about 2 days ago when she started having a cough, shortness of breath, loss of appetite. She has a history significant for recurrent C. difficile colitis. Overnight the patient had about 6 episodes of diarrhea. Reported fevers of up to 102 last night at the retirement facility. She denies abdominal pain, nausea or vomiting. Review of Systems Constitutional: COMPLAINS OF: Fever, Chills, Change in appetite Respiratory: COMPLAINS OF: Cough, Shortness of breath Cardiovascular: DENIES: Chest pain, Palpitations, Lower Extremity Edema Gastrointestinal: COMPLAINS OF: Diarrhea, DENIES: Nausea, Vomiting Genitourinary: DENIES: Dysuria Musculoskeletal: DENIES: Joint pain Integumentary: DENIES: Rash Except as stated in HPI: all other systems reviewed are Neg Past Family Social History Past Medical History Atrial fibrillation History of aortic valve replacement Congestive heart failure Hypertension Hyperlipidemia Recurrent C. difficile colitis CKD stage III Diabetes Past Surgical History Hysterectomy TVAR Reported Medications Reported Meds & Active Scripts Active Furosemide 20 Mg Tab 20 Mg PO DAILY Reported Zofran (Ondansetron HCl) 4 Mg Tab 4 Mg PO Q6HR PRN Tylenol (Acetaminophen) 325 Mg Tab 650 Mg PO Q6H PRN Rica-Tussin (Guaifenesin) 100 Mg/5 Ml Syp 200 Mg PO Q8HR PRN Cholestyramine 4 Gm/Pkt Powd 4 Gm PO Q8HR PRN 1 packet contains 4 grams of cholestyramine. Duoneb (Ipratropium-Albuterol Neb) 0.5-2.5 Mg/3 Ml Neb 3 Ml NEB Q6HR Humalog Inj (Insulin Human Lispro) 1,000 Unit/10 Ml Vial 2-10 Units SQ TIDAC SLIDING SCALE: if 151-200=2 units (call MD if <70), 201-250=4 units, 251-300=6 units, 301-350=8 units, 351-400=10 units (call MD if >401) Prednisone 10 Mg Tab 10 Mg PO BID 3 Days Flonase Nasal [place] (Fluticasone Nasal [place]) 50 Mcg/Act [place] 1 [place] EACH NARE BID Ferrous Sulfate 325 Mg (65 Mg Iron) Tablet 325 Mg PO BID Give with food Aldactone (Spironolactone) 25 Mg Tab 12.5 Mg PO DAILY Lisinopril 2.5 Mg Tab 2.5 Mg PO DAILY Isosorbide Mononitrate ER (Isosorbide Mononitrate) 60 Mg Tab 60 Mg PO DAILY Diff-Stat (Probiotic Product) 471 Mg Cap 471 Mg PO DAILY Vitamin C (Ascorbic Acid) 250 Mg Tab 500 Mg PO DAILY Medication on hold from 11/01/17-11/15/17 Eliquis (Apixaban) 2.5 Mg Tab 2.5 Mg PO BID Carvedilol 12.5 Mg Tab 12.5 Mg PO BID Breo Ellipta Inh (Fluticasone/Vilanterol) 100-25 Mcg/Act Inh 1 Puff INH DAILY Use daily at the same time. Aspirin Children's (Aspirin) 81 Mg Chew 81 Mg PO DAILY Allergies: Coded Allergies: ropinirole (Verified Allergy, Severe, Anaphylaxis, 11/05/17) Family History Reviewed and is noncontributory. Social History No tobacco alcohol. Patient previously lives at home with her . She has been in the retirement facility getting rehabilitation. Physical Exam Vital Signs Vital Signs Date Time Temp Pulse Resp B/P (MAP) Pulse Ox O2 Delivery O2 Flow Rate FiO2 11/05/17 12:45 92 30 119/60 (79) 97 Nasal Cannula 4.00 11/05/17 10:40 94 Nasal Cannula 2.00 11/05/17 10:38 92 Nasal Cannula 2.00 11/05/17 10:38 99.3 77 27 106/55 (72) 94 Nasal Cannula 2.00 11/05/17 10:21 99.3 85 20 106/55 (72) 92 2.00 Physical Exam GENERAL: Elderly female in no acute distress. Very pleasant. Occasional cough. SKIN: No rashes, ecchymoses or lesions. Cool and dry. HEAD: Atraumatic. Normocephalic. No temporal or scalp tenderness. EYES: Pupils equal round and reactive. Extraocular motions intact. No scleral icterus. No injection or drainage. ENT: Nose without drainage. Uvula midline. Airway patent. NECK: Trachea midline. No JVD or lymphadenopathy. Supple, nontender, no meningeal signs. CARDIOVASCULAR: Regular rate and rhythm without murmurs, gallops, or rubs. RESPIRATORY: Scattered rhonchi throughout. Markedly diminished breath sounds on the right base. Respiratory effort is fair. GASTROINTESTINAL: Abdomen soft, non-tender, nondistended. No hepato-splenomegaly , or palpable masses. No guarding. MUSCULOSKELETAL: Extremities without clubbing, cyanosis, or edema. Negative Homans sign bilaterally. NEUROLOGICAL: Awake and alert. Cranial nerves II through XII intact. Motor and sensory grossly within normal limits. Five out of 5 muscle strength in all muscle groups. Normal speech. Laboratory Laboratory Tests Test 11/05/17 11:05 White Blood Count 18.8 Red Blood Count 4.18 Hemoglobin 10.0 Hematocrit 31.6 Mean Corpuscular Volume 75.6 Mean Corpuscular Hemoglobin 24.0 Mean Corpuscular Hemoglobin Concent 31.7 Red Cell Distribution Width 19.7 Platelet Count 251 Mean Platelet Volume 7.9 Neutrophils (%) (Auto) 85.9 Lymphocytes (%) (Auto) 4.5 Monocytes (%) (Auto) 9.4 Eosinophils (%) (Auto) 0.0 Basophils (%) (Auto) 0.2 Neutrophils # (Auto) 16.1 Lymphocytes # (Auto) 0.9 Monocytes # (Auto) 1.8 Eosinophils # (Auto) 0.0 Basophils # (Auto) 0.0 CBC Comment DIFF FINAL Differential Comment Blood Urea Nitrogen 41 Creatinine 1.67 Random Glucose 226 Total Protein 6.9 Albumin 2.6 Calcium Level 8.3 Magnesium Level 1.7 Alkaline Phosphatase 60 Aspartate Amino Transf (AST/SGOT) 23 Alanine Aminotransferase (ALT/SGPT) 12 Total Bilirubin 0.6 Sodium Level 127 Potassium Level 4.4 Chloride Level 97 Carbon Dioxide Level 18.3 Anion Gap 12 Estimat Glomerular Filtration Rate 29 Lactic Acid Level 1.8 Total Creatine Kinase 40 Troponin I LESS THAN 0.02 Date/Time Source Procedure Growth Status 11/05/17 11:05 Blood Peripheral Aerobic Blood Culture Pending Received 11/05/17 11:05 Blood Peripheral Anaerobic Blood Culture Pending Received 11/05/17 11:05 Nasal Aspirate Influenza Types A,B Antigen (BANG) - Final NEGATIVE FOR FLU A AND B ANTIGEN.... Complete Result Diagram: 11/05/17 1105 11/05/17 1105 Imaging Last Impressions Chest X-Ray 11/05/17 1041 Signed Impressions: Service Date/Time: Tuesday, November 05, 2017 10:54 - CONCLUSION: There is a new parenchymal infiltrate in the right lower lung suggestive of pneumonia. Leo Thapa MD [place] VTE Risk Assessment Caprini VTE Risk Assessment: Mod/High Risk (score >= 2) Caprini Risk Assessment Model Point Value = 1 Point Value = 2 Point Value = 3 Point Value = 5 Age 41-60 Minor surgery BMI > 25 kg/m2 Swollen legs Varicose veins or History of unexplained or recurrent spontaneous Oral contraceptives or hormone replacement Sepsis (< 1 month) Serious lung disease, including pneumonia (< 1 month) Abnormal pulmonary function Acute myocardial infarction Congestive heart failure (< 1 month) History of inflammatory bowel disease Medical patient at bed rest Age 61-74 Arthroscopic surgery Major open surgery (> 45 min) Laparoscopic surgery (> 45 min) Malignancy Confined to bed (> 72 hours) Immobilizing plaster cast Central venous access Age >= 75 History of VTE Family history of VTE Factor V Leiden Prothrombin [id number] Lupus anticoagulant Anticardiolipin antibodies Elevated serum homocysteine Heparin-induced thrombocytopenia Other congenital or acquired thrombophilia Stroke (< 1 month) Elective arthroplasty Hip, pelvis, or leg fracture Acute spinal cord injury (< 1 month) Prophylaxis Regimen Total Risk Factor Score Risk Level Prophylaxis Regimen 0-1 Low Early ambulation 2 Moderate Order ONE of the following: *Sequential Compression Device (SCD) *Heparin 5000 units SQ BID 3-4 Higher Order ONE of the following medications: *Heparin 5000 units SQ TID *Enoxaparin/Lovenox 40 mg SQ daily (WT < 150 kg, CrCl > 30 mL/min) *Enoxaparin/Lovenox 30 mg SQ daily (WT < 150 kg, CrCl > 10-29 mL/min) *Enoxaparin/Lovenox 30 mg SQ BID (WT < 150 kg, CrCl > 30 mL/min) AND/OR *Sequential Compression Device (SCD) 5 or more Highest Order ONE of the following medications: *Heparin 5000 units SQ TID (Preferred with Epidurals) *Enoxaparin/Lovenox 40 mg SQ daily (WT < 150 kg, CrCl > 30 mL/min) *Enoxaparin/Lovenox 30 mg SQ daily (WT < 150 kg, CrCl > 10-29 mL/min) *Enoxaparin/Lovenox 30 mg SQ BID (WT < 150 kg, CrCl > 30 mL/min) AND *Sequential Compression Device (SCD) Assessment and Plan Problem List: (1) Sepsis ICD Code: A41.9 - Sepsis, unspecified organism Status: Acute Plan: Sepsis secondary to pneumonia, need to rule out C. difficile which may be contributing as well. - Treat as HCAP, patient has been at the nursing facility and multiple recent admissions to the hospital. - Cefepime and azithromycin - Consult infectious disease for assistance with antibiotics management given history of recurrent C. difficile colitis. - Follow blood cultures - Continue IV hydration for 1 more liter. Hydrate slowly given history of CHF. (2) Right lower lobe pneumonia ICD Code: J18.1 - Lobar pneumonia, unspecified organism Status: Acute Plan: Treat as healthcare acquired pneumonia as above. - Continue cefepime and azithromycin. Obtain urinary Legionella and pneumococcal antigen. Check for flu (3) Diarrhea ICD Code: R19.7 - Diarrhea, unspecified Plan: Concern for recurrent C. difficile colitis. C. difficile PCR is pending. (4) Generalized weakness ICD Code: R53.1 - Weakness Plan: Resume physical therapy. (5) Diabetes ICD Code: E11.9 - Type 2 diabetes mellitus without complications Plan: Sliding scale insulin with Accu-Cheks (6) Hypertension ICD Code: I10 - Essential (primary) hypertension Plan: Continue home medications. (7) CKD (chronic kidney disease) stage 3, GFR 30-59 ml/min ICD Code: N18.3 - Chronic kidney disease, stage 3 (moderate) (8) Atrial fibrillation, chronic ICD Code: I48.2 - Chronic atrial fibrillation Plan: Rate controlled. Continue Eliquis Code Status DNR. Confirmed with patient and her family at bedside. Discussed Condition With Dr. Colindres Physician Certification 2 Midnight Certification Type: Admission for Inpatient Services Order for Inpatient Services The services are ordered in accordance with Medicare regulations or non- Medicare payer requirements, as applicable. In the case of services not specified as inpatient-only, they are appropriately provided as inpatient services in accordance with the 2-midnight benchmark. Estimated LOS (days): 3 days is the estimated time the patient will need to remain in the hospital, assuming treatment plan goals are met and no additional complications. Post-Hospital Plan: Not yet determined Problem Qualifiers (1) Sepsis: Qualified Codes: A41.9 - Sepsis, unspecified organism (2) Right lower lobe pneumonia: Qualified Codes: J18.1 - Lobar pneumonia, unspecified organism Trisha Olivera MD Nov 05, 2017 13:38
[2017-11-05] MEDS ORDERED: DEXTROSE 50% IN WATER 50 ML VIAL(D50) IV PUSH PRN (14:30)
[2017-11-05] MEDS ORDERED: GLUCAGON 1 MG/ML VIAL OTHER PRN (14:30)
--- NOTE | 2017-11-05 14:48 | EKG ---
Date Performed: 11/05/2017 Time Performed: 11:09:30 PTAGE: 87 years EKG: ATRIAL FIBRILLATION INTRAVENTRICULAR CONDUCTION DELAY ABNORMAL ECG Since PREVIOUS TRACING , no significant change noted PREVIOUS TRACIN10/08/2017 17.34 DOCTOR: Dewey Henry Interpretating Date/Time 11/05/2017 14:46:56
[2017-11-05] MEDS ORDERED: SODIUM CHLOR 0.9% 1000 ML INJ 1,000 ML IV SCH (15:00)
[2017-11-05] MEDS ORDERED: ONDANSETRON ODT 4 MG TAB PO PRN (15:45)
[2017-11-05] MEDS ORDERED: PILL SPLITTER OTHER PRN (15:45)
[2017-11-05 16:00] VITALS: BP 111/56; PULSE 92; RESP 17; TEMP 95.8; O2SAT 99
[2017-11-05 16:16] VITALS: O2SAT 97
[2017-11-05] MEDS: guaiFENesin SOLUTION 200 MG/10 ML CUP PO PRN (16:36)
[2017-11-05] MEDS: INSULIN ASPART SUPPLEMENTAL SCALE SQ SCH ×2 (18:24→20:05)
--- NOTE | 2017-11-05 18:52 | PD.ID.CON ---
History of Present Illness Service ID Consult Requested By Dr Lopez Reason for Consult recurrent c.diff and PNA Primary Care Physician Rojas Pickens MD Diagnoses: History of Present Illness 87 yo female with multiple med probelms and recurrent C.diff (027 strain); pt ' s daughter reported 5 e[pisodes since June pt is a poor historian, I reviewed the chart and talked to her dgtr to obtain history She was admitted with resp issues, was put back on O2 for low sats and she has 6 -7 liquid BMs since this am she tested +again for C.diff She denies abdomihnal pain Her WBC are 18.8 K, she is afbrile Her creatinine is 1.8 Review of Systems ROS Limitations: Poor Historian Past Family Social History Allergies: Coded Allergies: ropinirole (Verified Allergy, Severe, Anaphylaxis, 11/05/17) Past Medical History Atrial fibrillation History of aortic valve replacement Congestive heart failure Hypertension Hyperlipidemia Recurrent C. difficile colitis CKD stage III Diabetes Past Surgical History Hysterectomy TVAR Active Ordered Medications Medications where reviewed in EMR Antibiotics Include: azithromycin cefepime Family History Reviewed and is noncontributory. Social History No tobacco alcohol. Patient previously lives at home with her . She has been in the nursing home facility getting rehabilitation. Physical Exam Vital Signs Vital Signs Date Time Temp Pulse Resp B/P (MAP) Pulse Ox O2 Delivery O2 Flow Rate FiO2 11/05/17 16:16 97 Nasal Cannula 3.00 11/05/17 16:00 95.8 92 17 111/56 (74) 99 11/05/17 14:30 11/05/17 12:45 92 30 119/60 (79) 97 Nasal Cannula 4.00 11/05/17 10:40 94 Nasal Cannula 2.00 11/05/17 10:38 92 Nasal Cannula 2.00 11/05/17 10:38 99.3 77 27 106/55 (72) 94 Nasal Cannula 2.00 11/05/17 10:21 99.3 85 20 106/55 (72) 92 2.00 Physical Exam CONSTITUTIONAL/GENERAL: This is an elderly, frail female patient, in no apparent distress. TUBES/LINES/DRAINS: SKIN: No jaundice, rashes, or lesions. Skin temperature appropriate. Not diaphoretic. HEAD: Atraumatic. Normocephalic. EYES: Pupils equal and round and reactive. Extraocular motions intact. No scleral icterus. No injection or drainage. Fundi not examined. ENT: Hearing grossly normal. Nose without bleeding or purulent drainage. Throat without visible erythema, exudates, masses, or lesions. NECK: Trachea midline. Supple, nontender. No palpable thyroid enlargement or nodularity. CARDIOVASCULAR: Regular rate and rhythm without murmurs, gallops, or rubs. No JVD. Peripheral pulses symmetric. RESPIRATORY/CHEST: Symmetric, unlabored respirations. Clear to auscultation anteriorly, b/b crackles. Breath sounds equal bilaterally. GASTROINTESTINAL: Abdomen soft, non-tender, somewhat distended. No hepato- splenomegaly, or palpable masses. No guarding. Bowel sounds present. GENITOURINARY: Without palpable bladder distension. MUSCULOSKELETAL: Extremities without clubbing, cyanosis, or edema. No joint tenderness or effusion noted. No calf tenderness. No mottling or clubbing. LYMPHATICS: No palpable cervical or supraclavicular adenopathy. NEUROLOGICAL: Awake and alert. Motor and sensory grossly within normal limits. Follows commands. Confused. Moves all extremities. PSYCHIATRIC: No obvious anxiety/depression. no apparent hallucinations or other psychotic thought process. Laboratory Laboratory Tests Test 11/05/17 11:05 White Blood Count 18.8 Red Blood Count 4.18 Hemoglobin 10.0 Hematocrit 31.6 Mean Corpuscular Volume 75.6 Mean Corpuscular Hemoglobin 24.0 Mean Corpuscular Hemoglobin Concent 31.7 Red Cell Distribution Width 19.7 Platelet Count 251 Mean Platelet Volume 7.9 Neutrophils (%) (Auto) 85.9 Lymphocytes (%) (Auto) 4.5 Monocytes (%) (Auto) 9.4 Eosinophils (%) (Auto) 0.0 Basophils (%) (Auto) 0.2 Neutrophils # (Auto) 16.1 Lymphocytes # (Auto) 0.9 Monocytes # (Auto) 1.8 Eosinophils # (Auto) 0.0 Basophils # (Auto) 0.0 CBC Comment DIFF FINAL Differential Comment Stool C. difficile Toxin (PCR) POSITIVE Stl C. difficile Toxin Epiderm 027 PRESUMPTIVE POSITIVE Blood Urea Nitrogen 41 Creatinine 1.67 Random Glucose 226 Total Protein 6.9 Albumin 2.6 Calcium Level 8.3 Magnesium Level 1.7 Alkaline Phosphatase 60 Aspartate Amino Transf (AST/SGOT) 23 Alanine Aminotransferase (ALT/SGPT) 12 Total Bilirubin 0.6 Sodium Level 127 Potassium Level 4.4 Chloride Level 97 Carbon Dioxide Level 18.3 Anion Gap 12 Estimat Glomerular Filtration Rate 29 Lactic Acid Level 1.8 Total Creatine Kinase 40 Troponin I LESS THAN 0.02 Date/Time Source Procedure Growth Status 11/05/17 11:05 Blood Peripheral Aerobic Blood Culture Pending Received 11/05/17 11:05 Blood Peripheral Anaerobic Blood Culture Pending Received 11/05/17 11:05 Nasal Aspirate Influenza Types A,B Antigen (BANG) - Final NEGATIVE FOR FLU A AND B ANTIGEN.... Complete 11/05/17 14:50 Urine Clean Catch Legionella Antigen - Final PRESUMPTIVE NEGATIVE FOR LEGIONELLA P... Complete 11/05/17 14:50 Urine Clean Catch Streptococcus pneumoniae Antigen (M - Final PRESUMPTIVE NEGATIVE FOR STREPTOCOCCU... Complete Result Diagram: 11/05/17 1105 11/05/17 1105 Imaging Last Impressions Chest X-Ray 11/05/17 1041 Signed Impressions: Service Date/Time: Sunday, November 05, 2017 10:54 - CONCLUSION: There is a new parenchymal infiltrate in the right lower lung suggestive of pneumonia. Leo Thapa MD Assessment and Plan Assessment and Plan New RLL infiltrate ? PNA ? mass on CT from try New recurrnce of C.diff CT A/P and chest vanco PO Flagyl IV cont tx for PNA Discussed Condition With RN dgtr @ b/s Lina Henry MD Nov 05, 2017 18:52
[2017-11-05] MEDS ORDERED: DIATRIZOATE MEGLUM/DIATRIZOATE SOD 9 ML CUP PO ONE (19:45)
[2017-11-05 20:00] VITALS: BP 121/56; PULSE 58; RESP 22; TEMP 96.1; O2SAT 97
[2017-11-05] MEDS: metroNIDAZOLE 500 MG INJ 100 ML IV SCH (20:04)
[2017-11-05] MEDS: SODIUM CHLORIDE 0.9% FLUSH 10 ML FLUSH IV FLUSH SCH (20:04)
[2017-11-05] MEDS: FERROUS SULFATE 325 MG (65 MG ELEMENTAL IRON) TAB PO SCH (20:05)
[2017-11-05] MEDS: FLUTICASONE PROPIONATE 50 MCG/ACT 16 GM NASAL SPRAY NASAL SCH (20:05)
[2017-11-05] MEDS: APIXABAN 2.5 MG TABLET PO SCH (20:05)
[2017-11-05] MEDS: CARVEDILOL 12.5 MG TAB PO SCH (20:05)
[2017-11-05] MEDS: RESP: ALBUTEROL 2.5 MG/IPRATROPIUM 0.5 MG NEB (SCH) NEB (20:13)
[2017-11-05] MEDS: VANCOMYCIN 25 MG/ML SUSP 100 ML BOTTLE PO SCH (21:38)
--- NOTE | 2017-11-05 22:17 | RADRPT ---
EXAM DATE/TIME: 11/05/2017 21:55 [facility] COMPARISON: CT ABDOMEN & PELVIS W/O CONTRAST, October 08, 2017, 6:54. INDICATIONS : Abdominal pain. ORAL CONTRAST: No oral contrast ingested. RADIATION DOSE: 11.42 CTDIvol (mGy) ; Combined studies - Thorax/Abdomen/Pelvis MEDICAL HISTORY : Cardiovascular disease. Cerebrovascular disease. Hypertension. SURGICAL HISTORY : None. ENCOUNTER: Initial ACUITY: 1 day PAIN SCALE: 2/10 LOCATION: abdomen TECHNIQUE: Volumetric scanning of the abdomen and pelvis was performed. Using automated exposure control and ad justment of the mA and/or kV according to patient size, radiation dose was kept as low as reasonably achievable to obtain optimal diagnostic quality images. DICOM format image data is available electro nically for review and comparison. FINDINGS: There is respiratory motion artifact. LOWER LUNGS: Please refer to chest CT report for description of the supradiaphragmatic findings. LIVER: Homogeneous density without lesion. There is no dilation of the biliary tree. No calcified gallston es. SPLEEN: Normal size without lesion. PANCREAS: Within normal limits. KIDNEYS: Normal in size and shape. There is no mass, stone, or hydronephrosis. ADRENAL GLANDS: Within normal limits. VASCULAR: There is no aortic aneurysm. There is severe atherosclerotic disease. BOWEL/MESENTERY: The stomach, small bowel, and colon demonstrate no acute abnormality. There is no free intraperitone al air or fluid. There is sigmoid diverticulosis. The wall thickening and inflammatory changes involv ing the sigmoid colon on the prior study have resolved. ABDOMINAL WALL: Within normal limits. RETROPERITONEUM: There is no lymphadenopathy. BLADDER: No wall thickening or mass. REPRODUCTIVE: The uterus is absent. INGUINAL: There is no lymphadenopathy or hernia. MUSCULOSKELETAL: There are degenerative changes of the lumbar spine with stable disc herniation in a right paracentral location at L5-S1. CONCLUSION: 1. No acute finding is identified within the abdomen or pelvis on this noncontrast examination is mil dly degraded by respiratory motion artifact. The inflammatory changes present in the sigmoid colon on the prior study have resolved. 2. Severe atherosclerotic disease. Richard Ortiz MD on November 05, 2017 at 22:11 Board Certified Radiologist. This report was verified electronically.
--- NOTE | 2017-11-05 22:22 | RADRPT ---
EXAM DATE/TIME: 11/05/2017 21:55 [facility] COMPARISON: CHEST SINGLE AP, October 08, 2017, 6:34. CHEST SINGLE AP, November 05, 2017, 10:54. CT ABDOMEN & PE LVIS W/O CONTRAST, October 08, 2017, 6:54. INDICATIONS : Evaluate for pneumonia. RADIATION DOSE: 11.42 CTDIvol (mGy) ; Combined studies - Thorax/Abdomen/Pelvis MEDICAL HISTORY : Cardiovascular disease. Cerebrovascular disease. Hypertension. SURGICAL HISTORY : None. ENCOUNTER: Initial ACUITY: 1 day PAIN SCALE: 0/10 LOCATION: chest TECHNIQUE: Volumetric scanning of the chest was performed. Using automated exposure control and adjustment of t he mA and/or kV according to patient size, radiation dose was kept as low as reasonably achievable to obtain optimal diagnostic quality images. DICOM format image data is available electronically for r eview and comparison. Follow-up recommendations for detected pulmonary nodules are based at a minimum on nodule size and pa tient risk factors according to Fleischner Society Guidelines. FINDINGS: LUNGS: There is mild to moderate centrilobular and paraseptal emphysema with interstitial opacities bilatera lly. There is patchy multifocal new somewhat nodular airspace consolidation in both lower lobes with a focal masslike consolidative area in the right lower lobe measuring 4.0 x 3.4 cm. No pneumothorax i s present. PLEURAE: There is no pleural thickening or pleural effusion. MEDIASTINUM: The heart and great vessels demonstrate no acute abnormality. Low-density of the cardiac blood pool s uggests anemia. There is a stent in the aortic valve region. Severe calcification of the mitral annul us is present and there is coronary artery calcification and moderate to severe atherosclerotic disea se of aorta. There are multiple mildly enlarged mediastinal lymph nodes measuring up to 12 mm in shor t axis diameter and a precarinal location. AXILLAE: Within normal limits. No lymphadenopathy. MUSCULOSKELETAL: There are degenerative changes of the thoracic spine. MISCELLANEOUS: Please refer to abdomen and pelvis CT report for description of the subdiaphragmatic findings. CONCLUSION: 1. Severe multifocal nodular air space consolidation in the lower lobes, new since the prior CT. Ther e is a nodular consolidative mass in the right lower lobe measuring 4 cm. Since these findings are ne w in the last few weeks, that suggests against a malignant process. An infectious process is most lik kylah. Given the bibasilar distribution aspiration should also be a consideration. 2. Nonacute findings include emphysema with interstitial lung changes, coronary artery calcification and severe atherosclerotic disease of aorta, and aortic valve replacement. 3. There are multiple mildly enlarged lymph nodes in the mediastinum which may be reactive secondary to the airspace process. Richard Ortiz MD on November 05, 2017 at 22:15 Board Certified Radiologist. This report was verified electronically.
[2017-11-05] MEDS: CEFEPIME INJ 2,000 MG in SODIUM CHLORIDE 0.9% INJ 100 ML IV SCH (23:05)
[2017-11-06] VITALS (7 sets, daily range): BP systolic 111–134; BP diastolic 54–67; PULSE 75–95; RESP 17–22; TEMP 95.5–96.3; O2SAT 93–98
[2017-11-06] MEDS: metroNIDAZOLE 500 MG INJ 100 ML IV SCH ×3 (02:32→19:39)
[2017-11-06] MEDS: guaiFENesin SOLUTION 200 MG/10 ML CUP PO PRN ×3 (02:32→17:36)
[2017-11-06] MEDS: VANCOMYCIN 25 MG/ML SUSP 100 ML BOTTLE PO SCH ×4 (02:32→19:38)
[2017-11-06] MEDS: RESP: ALBUTEROL 2.5 MG/IPRATROPIUM 0.5 MG NEB (SCH) NEB ×2 (08:38→19:24)
[2017-11-06] MEDS: SODIUM CHLORIDE 0.9% FLUSH 10 ML FLUSH IV FLUSH SCH ×2 (09:00→19:38)
[2017-11-06] MEDS ORDERED: PROBIOTIC PRODUCT PO SCH (09:00)
[2017-11-06] MEDS: FLUTICASONE PROPIONATE 50 MCG/ACT 16 GM NASAL SPRAY NASAL SCH ×2 (09:00→19:39)
[2017-11-06] MEDS: ISOSORBIDE MONONITRATE 60 MG CR TAB (IMDUR) PO SCH (09:12)
[2017-11-06] MEDS: LISINOPRIL 5 MG TAB PO SCH (09:12)
[2017-11-06] MEDS: SPIRONOLACTONE 25 MG TAB PO SCH (09:13)
[2017-11-06] MEDS: FUROSEMIDE 20 MG TAB PO SCH (09:17)
[2017-11-06] MEDS: CARVEDILOL 12.5 MG TAB PO SCH ×2 (09:17→19:39)
[2017-11-06] MEDS: ASPIRIN 81 MG CHEW TAB PO SCH (09:17)
[2017-11-06] MEDS: APIXABAN 2.5 MG TABLET PO SCH ×2 (09:17→19:39)
[2017-11-06] MEDS: FERROUS SULFATE 325 MG (65 MG ELEMENTAL IRON) TAB PO SCH ×2 (09:18→19:39)
[2017-11-06] MEDS: INSULIN ASPART SUPPLEMENTAL SCALE SQ SCH ×4 (09:33→19:38)
[2017-11-06 09:53] LABS: AUTOMATED NEUTROPHIL # 18.2 TH/MM3 (1.8-7.7); HEMATOCRIT 28.8 % (35.0-46.0); HEMOGLOBIN 9.2 GM/DL (11.6-15.3); LYMPH % 3.2 % (9.0-44.0); LYMPHOCYTE # 0.6 TH/MM3 (1.0-4.8); MEAN CELL VOLUME 76.5 FL (80.0-100.0); MEAN CORPUSCULAR HEMOGLOBIN 24.4 PG (27.0-34.0); MEAN CORPUSCULAR HGB CONC 31.9 % (32.0-36.0); MEAN PLATELET VOLUME 7.6 FL (7.0-11.0); MONO % 4.4 % (0.0-8.0); MONOCYTE # 0.9 TH/MM3 (0-0.9); NEUT % 92.4 % (16.0-70.0); PLATELET COUNT 222 TH/MM3 (150-450); RED BLOOD COUNT 3.77 MIL/MM3 (4.00-5.30); RED CELL DISTRIBUTION WIDTH 19.7 % (11.6-17.2); WHITE BLOOD COUNT 19.8 TH/MM3 (4.0-11.0)
[2017-11-06 10:10] LABS: BICARBONATE 19.3 MEQ/L (21.0-32.0); CALCIUM 8.6 MG/DL (8.5-10.1); CREATININE 1.33 MG/DL (0.50-1.00)
--- NOTE | 2017-11-06 12:13 | HHI.PR ---
Subjective Remarks Pt seen and examined. AFVSS on 2L NC. No acute events overnight. of 68 years present in the room. Both in good spirits though [place] Patient endorses coughing but shortness of breath improved from yesterday. Denies CP, N/V, or abdominal pain. Has short term memory so didn't recall any diarrhea but endorses the patient had three episodes of nonbloody diarrhea this morning. Objective Vitals Vital Signs Date Time Temp Pulse Resp B/P (MAP) Pulse Ox O2 Delivery O2 Flow Rate FiO2 11/06/17 08:41 98 Nasal Cannula 2.00 11/06/17 08:00 95.8 77 17 130/61 (84) 96 11/06/17 00:00 96.1 75 22 117/55 (75) 97 11/05/17 20:00 96.1 58 22 121/56 (77) 97 11/05/17 16:16 97 Nasal Cannula 3.00 11/05/17 16:00 95.8 92 17 111/56 (74) 99 11/05/17 14:30 11/05/17 12:45 92 30 119/60 (79) 97 Nasal Cannula 4.00 I/O 11/05/17 11/05/17 11/05/17 11/06/17 11/06/17 11/06/17 07:00 15:00 23:00 07:00 15:00 23:00 Intake Total 1000 ml 338 ml 680 ml Output Total 1050 ml Balance 1000 ml 338 ml -370 ml Intake Oral 238 ml 480 ml IV Total 1000 ml 100 ml 200 ml Output Urine Total 1050 ml # Voids 1 # Bowel Movements 0 3 Result Diagram: 11/06/17 0823 11/06/17 0823 Imaging Last 72 hours Impressions Chest X-Ray 11/05/17 1041 Signed Impressions: Service Date/Time: Sunday, November 05, 2017 10:54 - CONCLUSION: There is a new parenchymal infiltrate in the right lower lung suggestive of pneumonia. Leo Thapa MD Chest CT 11/05/17 0000 Signed Impressions: Service Date/Time: Sunday, November 05, 2017 21:55 - CONCLUSION: 1. Severe multifocal nodular air space consolidation in the lower lobes, new since the prior CT. There is a nodular consolidative mass in the right lower lobe measuring 4 cm. Since these findings are new in the last few weeks, that suggests against a malignant process. An infectious process is most likely. Given the bibasilar distribution aspiration should also be a consideration. 2. Nonacute findings include emphysema with interstitial lung changes, coronary artery calcification and severe atherosclerotic disease of aorta, and aortic valve replacement. 3. There are multiple mildly enlarged lymph nodes in the mediastinum which may be reactive secondary to the airspace process. Richard Ortiz MD Abdomen/Pelvis CT 11/05/17 0000 Signed Impressions: Service Date/Time: Sunday, November 05, 2017 21:55 - CONCLUSION: 1. No acute finding is identified within the abdomen or pelvis on this noncontrast examination is mildly degraded by respiratory motion artifact. The inflammatory changes present in the sigmoid colon on the prior study have resolved. 2. Severe atherosclerotic disease. Richard Ortiz MD Objective Remarks GENERAL: Elderly pleasant female sitting up in bed eating lunch in NAD. SKIN: Warm and dry. HEENT: Pupils equal and round. MMM. NECK: Supple no tender LAD or JVD. HEART: RRR with 3/6 murmur. LUNGS: Intermittent productive cough throughout exam. R base with crackles and diminished breath sounds. Scattered rhonchi clear with coughing. ABDOMEN: +BS. Soft, NT, ND. EXTREMITIES: No LE edema or calf tenderness. NEURO: Awake and alert. PSYCH: Appropriate mood and affect. A/P Problem List: (1) Sepsis ICD Code: A41.9 - Sepsis, unspecified organism Status: Acute (2) Right lower lobe pneumonia ICD Code: J18.1 - Lobar pneumonia, unspecified organism Status: Acute (3) Diarrhea ICD Code: R19.7 - Diarrhea, unspecified (4) Generalized weakness ICD Code: R53.1 - Weakness (5) Diabetes ICD Code: E11.9 - Type 2 diabetes mellitus without complications (6) Hypertension ICD Code: I10 - Essential (primary) hypertension (7) CKD (chronic kidney disease) stage 3, GFR 30-59 ml/min ICD Code: N18.3 - Chronic kidney disease, stage 3 (moderate) (8) Atrial fibrillation, chronic ICD Code: I48.2 - Chronic atrial fibrillation Assessment and Plan Sepsis Secondary to pneumonia, need to rule out C. difficile which may be contributing as well. - Treat as HCAP, patient has been at the nursing facility and multiple recent admissions to the hospital - Cefepime and azithromycin - Consult infectious disease for assistance with antibiotics management given history of recurrent C. difficile colitis - Follow blood cultures - Hydrate slowly given history of CHF Right lower lobe pneumonia Treat as healthcare acquired pneumonia as above. - CT chest showing severe multifocal nodular airspace consolidation in the lower lobes with the right measuring 4 cm suggestive of infectious process - Continue cefepime and azithromycin. - Negative urinary Legionella and pneumococcal antigen - Neg flu C. difficile colitis On PO vanc ID on board Generalized weakness PT to eval and treat Diabetes Sliding scale insulin with Accu-Cheks Hypertension Continue home medications CKD (chronic kidney disease) stage 3, GFR 30-59 ml/min Stable Avoid nephrotoxins Atrial fibrillation, chronic Rate controlled. Continue Eliquis Code Status DNR Problem Qualifiers (1) Sepsis: Qualified Codes: A41.9 - Sepsis, unspecified organism (2) Right lower lobe pneumonia: Qualified Codes: J18.1 - Lobar pneumonia, unspecified organism Lorrie Cruz MD Nov 06, 2017 12:13
[2017-11-06] MEDS: CEFEPIME INJ 2,000 MG in SODIUM CHLORIDE 0.9% INJ 100 ML IV SCH ×2 (13:49→23:59)
[2017-11-06] MEDS: FLUTICASONE 100 MCG/VILANTEROL 25 MCG INHALER INH SCH (13:57)
[2017-11-06] MEDS: AZITHROMYCIN 250 MG TAB PO SCH (13:58)
[2017-11-07] VITALS (7 sets, daily range): BP systolic 112–150; BP diastolic 58–75; PULSE 78–103; RESP 18–20; TEMP 96.4–99.3; O2SAT 94–98
[2017-11-07] MEDS: metroNIDAZOLE 500 MG INJ 100 ML IV SCH ×4 (03:23→20:28)
[2017-11-07] MEDS: VANCOMYCIN 25 MG/ML SUSP 100 ML BOTTLE PO SCH ×4 (03:23→21:27)
[2017-11-07] MEDS: RESP: ALBUTEROL 2.5 MG/IPRATROPIUM 0.5 MG NEB (SCH) NEB ×3 (07:42→19:18)
[2017-11-07] MEDS: guaiFENesin SOLUTION 200 MG/10 ML CUP PO PRN ×2 (08:37→17:01)
[2017-11-07] MEDS: INSULIN ASPART SUPPLEMENTAL SCALE SQ SCH ×4 (08:39→20:33)
[2017-11-07] MEDS: APIXABAN 2.5 MG TABLET PO SCH ×2 (08:40→20:29)
[2017-11-07] MEDS: LISINOPRIL 5 MG TAB PO SCH (08:40)
[2017-11-07] MEDS: SPIRONOLACTONE 25 MG TAB PO SCH (08:41)
[2017-11-07] MEDS: CARVEDILOL 12.5 MG TAB PO SCH ×2 (08:41→20:28)
[2017-11-07] MEDS: FERROUS SULFATE 325 MG (65 MG ELEMENTAL IRON) TAB PO SCH ×2 (08:41→20:29)
[2017-11-07] MEDS: FUROSEMIDE 20 MG TAB PO SCH (08:41)
[2017-11-07] MEDS: ASPIRIN 81 MG CHEW TAB PO SCH (08:41)
[2017-11-07] MEDS: ISOSORBIDE MONONITRATE 60 MG CR TAB (IMDUR) PO SCH (08:42)
[2017-11-07] MEDS: FLUTICASONE 100 MCG/VILANTEROL 25 MCG INHALER INH SCH (08:43)
[2017-11-07] MEDS: FLUTICASONE PROPIONATE 50 MCG/ACT 16 GM NASAL SPRAY NASAL SCH ×2 (08:43→20:30)
[2017-11-07] MEDS: SODIUM CHLORIDE 0.9% FLUSH 10 ML FLUSH IV FLUSH SCH ×2 (08:43→20:29)
[2017-11-07 09:59] LABS: AUTOMATED NEUTROPHIL # 23.9 TH/MM3 (1.8-7.7); BASOPHIL % 0.1 % (0.0-2.0); HEMATOCRIT 29.5 % (35.0-46.0); HEMOGLOBIN 9.2 GM/DL (11.6-15.3); LYMPH % 2.8 % (9.0-44.0); LYMPHOCYTE # 0.7 TH/MM3 (1.0-4.8); MEAN CELL VOLUME 77.1 FL (80.0-100.0); MEAN CORPUSCULAR HEMOGLOBIN 24.1 PG (27.0-34.0); MEAN CORPUSCULAR HGB CONC 31.2 % (32.0-36.0); MEAN PLATELET VOLUME 7.7 FL (7.0-11.0); MONO % 6.1 % (0.0-8.0); MONOCYTE # 1.6 TH/MM3 (0-0.9); PLATELET COUNT 251 TH/MM3 (150-450); RED BLOOD COUNT 3.83 MIL/MM3 (4.00-5.30); RED CELL DISTRIBUTION WIDTH 19.4 % (11.6-17.2); WHITE BLOOD COUNT 26.2 TH/MM3 (4.0-11.0)
[2017-11-07 10:31] LABS: BICARBONATE 18.4 MEQ/L (21.0-32.0); CREATININE 1.24 MG/DL (0.50-1.00)
[2017-11-07] MEDS ORDERED: VANCOMYCIN 1,000 MG/NS 250 ML IV ONE ×2 (12:00)
[2017-11-07] MEDS: CEFEPIME INJ 2,000 MG in SODIUM CHLORIDE 0.9% INJ 100 ML IV SCH ×2 (12:00→16:18)
--- NOTE | 2017-11-07 12:46 | HHI.PR ---
Subjective Remarks Pt seen and examined. AFVSS. and daughter at the bedside. Reports she is feeling about the same. Continues to have productive cough that is a brownish color sputum. Denies SOB or shortness of breath when she is laying still. Tolerating PO but continues to have multiple episodes of dark loose stool. No nausea or vomiting. Denies subjective fevers, chills, or myalgias. Objective Vitals Vital Signs Date Time Temp Pulse Resp B/P (MAP) Pulse Ox O2 Delivery O2 Flow Rate FiO2 11/07/17 12:00 98.3 81 18 148/66 (93) 98 11/07/17 08:00 96.9 94 18 138/75 (96) 96 11/07/17 07:42 96 Nasal Cannula 2.00 11/07/17 00:00 96.4 78 20 112/58 (76) 97 11/06/17 20:00 96.3 95 22 132/67 (88) 93 11/06/17 19:33 94 Nasal Cannula 2.00 11/06/17 16:00 95.5 78 17 134/60 (84) 94 I/O 11/06/17 11/06/17 11/06/17 11/07/17 11/07/17 11/07/17 07:00 15:00 23:00 07:00 15:00 23:00 Intake Total 680 ml 100 ml 920 ml 560 ml Output Total 1050 ml 1750 ml Balance -370 ml 100 ml 920 ml -1190 ml Intake Oral 480 ml 720 ml 360 ml IV Total 200 ml 100 ml 200 ml 200 ml Output Urine Total 1050 ml 1750 ml # Voids 4 # Bowel Movements 3 2 1 Result Diagram: 11/07/1737 11/07/1737 Objective Remarks GENERAL: Elderly pleasant female sitting up in bed in [facility]. SKIN: Warm and dry. HEENT: Pupils equal and round. MMM. NECK: Supple no tender LAD or JVD. HEART: IRR with 3/6 murmur. LUNGS: Intermittent productive cough throughout exam. R base with crackles and diminished breath sounds. ABDOMEN: +BS. Soft, NT, ND. EXTREMITIES: No LE edema or calf tenderness. NEURO: Awake and alert. PSYCH: Appropriate mood and affect. A/P Problem List: (1) MRSA bacteremia ICD Code: R78.81 - Bacteremia (2) Sepsis ICD Code: A41.9 - Sepsis, unspecified organism Status: Acute (3) Right lower lobe pneumonia ICD Code: J18.1 - Lobar pneumonia, unspecified organism Status: Acute (4) Diarrhea ICD Code: R19.7 - Diarrhea, unspecified (5) Generalized weakness ICD Code: R53.1 - Weakness (6) Diabetes ICD Code: E11.9 - Type 2 diabetes mellitus without complications (7) Hypertension ICD Code: I10 - Essential (primary) hypertension (8) CKD (chronic kidney disease) stage 3, GFR 30-59 ml/min ICD Code: N18.3 - Chronic kidney disease, stage 3 (moderate) (9) Atrial fibrillation, chronic ICD Code: I48.2 - Chronic atrial fibrillation Assessment and Plan 87 year old female presenting from SNF with diarrhea, cough, fever, and shortness of breath found to have right lower lobe pneumonia as well as C. diff. She is now growing MRSA on blood culture. MRSA bacteremia - ?source PNA - ID following - On IV vanc Sepsis - White count up to 26 today - Secondary to pneumonia, C. diff, and now MRSA bacteremia - See individual plans - Hydrate slowly given history of CHF Right lower lobe pneumonia - Treat as HCAP since she is coming from a skilled nursing - CT chest showing severe multifocal nodular airspace consolidation in the lower lobes with the right measuring 4 cm suggestive of infectious process - Continue cefepime and azithromycin. - Negative urinary Legionella and pneumococcal antigen - Neg flu C. difficile colitis - This is patient's fifth recurrence per her daughter - On PO vanc - ID on board - Monitor abdominal exam closely for distention or development of toxic megacolon given her age and frailty Generalized weakness PT to eval and treat Diabetes Sliding scale insulin with Accu-Cheks Hypertension Continue home medications CKD (chronic kidney disease) stage 3, GFR 30-59 ml/min Stable Avoid nephrotoxins Atrial fibrillation, chronic Rate controlled. Continue Eliquis Code Status DNR Problem Qualifiers (1) Sepsis: Qualified Codes: A41.9 - Sepsis, unspecified organism (2) Right lower lobe pneumonia: Qualified Codes: J18.1 - Lobar pneumonia, unspecified organism Lorrie Cruz MD Nov 07, 2017 12:46
[2017-11-07] MEDS ORDERED: Vancomycin Consult Pharmacy 1 EA OTHER SCH (14:15)
--- NOTE | 2017-11-07 14:24 | HHI.IDPN ---
Subjective Subjective Remarks pt is having positive blood clx: MSSA, MRSA and Citrobacter in different bottles of 2 sets She cont to have sevre diarrhea Her WBC jumped to 26 K No fever sp TAVR 5 mos ago in [facility] Antibiotics cefpeime vanco PO vanco IV x 1 STAT Allergies: Coded Allergies: ropinirole (Verified Allergy, Severe, Anaphylaxis, 11/05/17) Objective . Vital Signs Date Time Temp Pulse Resp B/P (MAP) Pulse Ox O2 Delivery O2 Flow Rate FiO2 11/07/17 12:00 98.3 81 18 148/66 (93) 98 11/07/17 08:00 96.9 94 18 138/75 (96) 96 11/07/17 07:42 96 Nasal Cannula 2.00 11/07/17 00:00 96.4 78 20 112/58 (76) 97 11/06/17 20:00 96.3 95 22 132/67 (88) 93 11/06/17 19:33 94 Nasal Cannula 2.00 11/06/17 16:00 95.5 78 17 134/60 (84) 94 . Laboratory Tests Test 11/06/17 08:23 11/07/17 07:37 White Blood Count 19.8 TH/MM3 26.2 TH/MM3 Red Blood Count 3.77 MIL/MM3 3.83 MIL/MM3 Hemoglobin 9.2 GM/DL 9.2 GM/DL Hematocrit 28.8 % 29.5 % Mean Corpuscular Volume 76.5 FL 77.1 FL Mean Corpuscular Hemoglobin 24.4 PG 24.1 PG Mean Corpuscular Hemoglobin Concent 31.9 % 31.2 % Red Cell Distribution Width 19.7 % 19.4 % Platelet Count 222 TH/MM3 251 TH/MM3 Mean Platelet Volume 7.6 FL 7.7 FL Neutrophils (%) (Auto) 92.4 % 91.0 % Lymphocytes (%) (Auto) 3.2 % 2.8 % Monocytes (%) (Auto) 4.4 % 6.1 % Eosinophils (%) (Auto) 0.0 % 0.0 % Basophils (%) (Auto) 0.0 % 0.1 % Neutrophils # (Auto) 18.2 TH/MM3 23.9 TH/MM3 Lymphocytes # (Auto) 0.6 TH/MM3 0.7 TH/MM3 Monocytes # (Auto) 0.9 TH/MM3 1.6 TH/MM3 Eosinophils # (Auto) 0.0 TH/MM3 0.0 TH/MM3 Basophils # (Auto) 0.0 TH/MM3 0.0 TH/MM3 CBC Comment DIFF FINAL DIFF FINAL Differential Comment Laboratory Tests Test 11/06/17 08:23 11/07/17 07:37 Blood Urea Nitrogen 45 MG/DL 43 MG/DL Creatinine 1.33 MG/DL 1.24 MG/DL Random Glucose 285 MG/DL 166 MG/DL Calcium Level 8.6 MG/DL 9.0 MG/DL Sodium Level 132 MEQ/L 137 MEQ/L Potassium Level 4.2 MEQ/L 4.5 MEQ/L Chloride Level 105 MEQ/L 108 MEQ/L Carbon Dioxide Level 19.3 MEQ/L 18.4 MEQ/L Anion Gap 8 MEQ/L 11 MEQ/L Estimat Glomerular Filtration Rate 38 ML/MIN 41 ML/MIN Microbiology Date/Time Source Procedure Growth Status 11/05/17 11:05 Blood Peripheral Aerobic Blood Culture - Preliminary S. Aureus Mrsa Resulted 11/05/17 11:05 Anaerobic Blood Culture - Preliminary Citrobacter Species Resulted 11/05/17 11:00 Blood Peripheral Aerobic Blood Culture - Preliminary NO GROWTH IN 2 DAYS Resulted 11/05/17 11:00 Anaerobic Blood Culture - Preliminary Staphylococcus Aureus Resulted 11/05/17 11:05 Nasal Aspirate Influenza Types A,B Antigen (BANG) - Final NEGATIVE FOR FLU A AND B ANTIGEN.... Complete 11/05/17 14:50 Urine Clean Catch Legionella Antigen - Final PRESUMPTIVE NEGATIVE FOR LEGIONELLA P... Complete 11/05/17 14:50 Urine Clean Catch Streptococcus pneumoniae Antigen (M - Final PRESUMPTIVE NEGATIVE FOR STREPTOCOCCU... Complete Imaging Last Impressions Chest X-Ray 11/05/17 1041 Signed Impressions: Service Date/Time: Sunday, November 05, 2017 10:54 - CONCLUSION: There is a new parenchymal infiltrate in the right lower lung suggestive of pneumonia. Leo Thapa MD Chest CT 11/05/17 0000 Signed Impressions: Service Date/Time: Sunday, November 05, 2017 21:55 - CONCLUSION: 1. Severe multifocal nodular air space consolidation in the lower lobes, new since the prior CT. There is a nodular consolidative mass in the right lower lobe measuring 4 cm. Since these findings are new in the last few weeks, that suggests against a malignant process. An infectious process is most likely. Given the bibasilar distribution aspiration should also be a consideration. 2. Nonacute findings include emphysema with interstitial lung changes, coronary artery calcification and severe atherosclerotic disease of aorta, and aortic valve replacement. 3. There are multiple mildly enlarged lymph nodes in the mediastinum which may be reactive secondary to the airspace process. Richard Ortiz MD Abdomen/Pelvis CT 11/05/17 0000 Signed Impressions: Service Date/Time: Sunday, November 05, 2017 21:55 - CONCLUSION: 1. No acute finding is identified within the abdomen or pelvis on this noncontrast examination is mildly degraded by respiratory motion artifact. The inflammatory changes present in the sigmoid colon on the prior study have resolved. 2. Severe atherosclerotic disease. Richard Ortiz MD Physical Exam CONSTITUTIONAL/GENERAL: This is an elderly, frail female patient, in no apparent distress. TUBES/LINES/DRAINS: SKIN: No jaundice, rashes, or lesions. Skin temperature appropriate. Not diaphoretic. HEAD: Atraumatic. Normocephalic. EYES: Pupils equal and round and reactive. Extraocular motions intact. No scleral icterus. No injection or drainage. Fundi not examined. ENT: Hearing grossly normal. Nose without bleeding or purulent drainage. Throat without visible erythema, exudates, masses, or lesions. CARDIOVASCULAR: Regular rate and rhythm without murmurs, gallops, or rubs. No JVD. Peripheral pulses symmetric. RESPIRATORY/CHEST: Symmetric, unlabored respirations. Clear to auscultation anteriorly, b/b crackles. Breath sounds equal bilaterally. GASTROINTESTINAL: Abdomen soft, non-tender, somewhat distended. No hepato- splenomegaly, or palpable masses. No guarding. Bowel sounds present. GENITOURINARY: Without palpable bladder distension. MUSCULOSKELETAL: Extremities without clubbing, cyanosis, or edema. No joint tenderness or effusion noted. No calf tenderness. No mottling or clubbing. LYMPHATICS: No palpable cervical or supraclavicular adenopathy. NEUROLOGICAL: Awake and alert. Motor and sensory grossly within normal limits. Follows commands. Alert, oriented Normal speech . Moves all extremities. PSYCHIATRIC: No obvious anxiety/depression. no apparent hallucinations or other psychotic thought process. Assessment & Plan Remarks Assessment and Plan Assessment and Plan New RLL infiltrate ? PNA ? mass on CT from - no mentioninn g of the mass on repeat CT this admission New recurrnce of C.diff Worsening leukocytosis POlimicrtobial bacteremia: MSSA< MRSA, Citrobacter pt is sp TAVR recently cont vanco PO cont Flagyl IV add dificid start IV vancomycin f/u final ID on MRSA/MSSA repeat blood clx 2 D echo dw dgtr, @ b/s Lina Henry MD Nov 07, 2017 14:24
[2017-11-07] MEDS: AZITHROMYCIN 250 MG TAB PO SCH (14:41)
[2017-11-07] MEDS: ONDANSETRON HCL 4 MG/2 ML VIAL IV PUSH PRN (17:24)
[2017-11-07] MEDS: FIDAXOMICIN 200 MG TAB PO SCH (20:29)
--- NOTE | 2017-11-07 21:02 | PD.CONS ---
Consult Service Palliative Care Consult Requested By Dr. Cruz Primary Care Physician Rojas Pickens MD Reason for Consultation a. To assist with evaluation and management of symptoms including:shortness of breath, debility b. To assist medical decision maker(s) with: better understanding of current medical conditions; weighing benefits/burdens of medical treatment options; making medical treatment decisions. HPI History of Present Illness Mrs Bustos is a 87-year-old female with a past medical history of atrial fibrillation, aortic valve replacement, congestive heart failure, hypertension, hyperlipidemia, recurrent C. difficile colitis, chronic kidney disease stage III and diabetes. Patient was brought to the ER via EMS on 11/05/17 from the retirement facility with complaints of fever, shortness of breath, cough and diarrhea. Temperature was as high as 10 2F at the skilled nursing. EMS staff administered breathing treatment prior to arrival to the ER patient has had multiple admissions after valve replacement, for C difficile which did not respond to Flagyl and vancomycin and was started on Dificid 200 mg. Patient has had multiple hospital admissions- in 2009, Aug 2016 and Jul 2017 for C. diff and recurrent urinary tract infections. Patient is known to palliative care from her last hospital admission which was in [facility]. At that time patient was discharged home with home health services and patient was sent to [facility] after spending a few hours at home and was treted again for Cdiff and discharged to [place] and rehab where she has been for the past 2 weeks. ER course: * Vital signs: Temperature 99.3F, pulse 92, respirations 30, BP 119/60 and O2 saturation 97% on 4 L * Laboratory workup revealed WBC 18.8, hemoglobin 10.0, hematocrit 31.6, platelet count 251, sodium 127, BUN/creatinine 41/1.67, troponin less than 0.02 , total protein 6.9, albumin 2.6, lactic acid 1.8. * Blood cultures drawn on 11/05 revealed S. aureus MRSA in aerobic blood culture and Citrobacter species in an aerobic blood culture. Staphylococcus aureus in the second anaerobic blood culture * Stool tested positive for C. difficile * Chest x-ray revealed right lower lobe pneumonia. * Patient started on antibiotic * Patient had been admitted for further sepsis workup Infectious disease Dr. Henry consulted on 11/05/17 for evaluation and management of recurrent C. difficile and pneumonia. Palliative care consulted to assist with clarification of goals. Patient seen and examined in her room in the presence of her daughter Noris Singh. Patient is lethargic and sleepy. Patient complaining of pain to her back from constantly coughing. Patient verbalized that, "i am redy to go home to be with the Lord, i am tired and i feel very weak". Patient` daughter appropriately tearful. She narrated patient`s trajectory of decline and how patient has tried to do rehabilitation and continues to decline. Patient`s daughter stated that patient`s is her health care surrogate and will try to bring in copies. Patient`s daughter stated the all 3 children and patient are amenable to comfort measures only considering what patient has gone through requested a meeting with palliative when her brother Chan is back in town most likely on to discuss goals of care. . Function/Cognitive Trajectory Patient has had multiple hospital admissions at [facility] for recurrent C Diff. Patient requires assistance with bathing, dressing, toileting. Patient is able to feed herself. Patient uses oxygen, walker and a shower chair at home. Prior to this admission patient had home health care services through [facility]. She also has private duty caregivers. Patient has had some short term memory loss since the strokes.Patient currently lives at a retirement facility where she is getting rehabilitation. . Review of Systems Constitutional: COMPLAINS OF: Fever, Weight loss, Generalized weakness Eyes: DENIES: Eye inflammation Ears, nose, mouth, throat: DENIES: Throat pain Respiratory: COMPLAINS OF: Cough, Shortness of breath Cardiovascular: COMPLAINS OF: Lower Extremity Edema, DENIES: Chest pain, Palpitations Gastrointestinal: COMPLAINS OF: Diarrhea, Nausea, Difficulty Swallowing Hematologic/Lymphatics: COMPLAINS OF: Bruising Neurologic: COMPLAINS OF: Poor Balance Psychiatric: COMPLAINS OF: Confusion Past Family Social History Coded Allergies: ropinirole (Verified Allergy, Severe, Anaphylaxis, 11/05/17) Past Medical History Atrial fibrillation History of aortic valve replacement Congestive heart failure Hypertension Hyperlipidemia Recurrent C. difficile colitis 5 CKD stage III Diabetes Chronic hypoxic respiratory failure on 2 L home oxygen . Past Surgical History Hysterectomy TVAR Pelvic fracture repair this a child . Reported Medications Furosemide 20 Mg Tab 20 Mg PO DAILY Zofran (Ondansetron HCl) 4 Mg Tab 4 Mg PO Q6HR PRN Tylenol (Acetaminophen) 325 Mg Tab 650 Mg PO Q6H PRN Rica-Tussin (Guaifenesin) 100 Mg/5 Ml Syp 200 Mg PO Q8HR PRN Cholestyramine 4 Gm/Pkt Powd 4 Gm PO Q8HR PRN. Duoneb (Ipratropium-Albuterol Neb) 0.5-2.5 Mg/3 Ml Neb 3 Ml NEB Q6HR Humalog Inj (Insulin Human Lispro) 1,000 Unit/10 Ml Vial 2-10 Units SQ TIDAC Prednisone 10 Mg Tab 10 Mg PO BID 3 Days Flonase Nasal Corbett (Fluticasone Nasal Corbett) 50 Mcg/Act Corbett 1 Corbett EACH NARE BID Ferrous Sulfate 325 Mg (65 Mg Iron) Tablet 325 Mg PO BID Aldactone (Spironolactone) 25 Mg Tab 12.5 Mg PO DAILY Lisinopril 2.5 Mg Tab 2.5 Mg PO DAILY Isosorbide Mononitrate ER (Isosorbide Mononitrate) 60 Mg Tab 60 Mg PO DAILY Diff-Stat (Probiotic Product) 471 Mg Cap 471 Mg PO DAILY Vitamin C (Ascorbic Acid) 250 Mg Tab 500 Mg PO DAILY Medication on hold from 11/01/17-11/15/17 Eliquis (Apixaban) 2.5 Mg Tab 2.5 Mg PO BID Carvedilol 12.5 Mg Tab 12.5 Mg PO BID Breo Ellipta Inh (Fluticasone/Vilanterol) 100-25 Mcg/Act Inh 1 Puff INH DAILY Aspirin Children's (Aspirin) 81 Mg Chew 81 Mg PO DAILY . Current Medications Medications (Trade) Dose Ordered Sig/Selma Route Start Time Stop Time Status Last Admin (Tylenol) 650 mg Q6H PRN PO 11/05/17 13:30 (Eliquis) 2.5 mg BID PO 11/05/17 21:00 11/07/17 08:40 (Aspirin Chew) 81 mg DAILY PO 11/06/17 09:00 11/07/17 08:41 (Coreg) 12.5 mg BID PO 11/05/17 21:00 11/07/17 08:41 (Ferrous Sulfate) 325 mg BID PO 11/05/17 21:00 11/07/17 08:41 (Breo Ellipta 100-25 Inh) 1 puff DAILY INH 11/06/17 09:00 11/07/17 08:43 (Lasix) 20 mg DAILY PO 11/06/17 09:00 11/07/17 08:41 (Robitussin Liq) 200 mg Q8HR PRN PO 11/05/17 13:30 11/07/17 17:01 (Imdur) 60 mg DAILY PO 11/06/17 09:00 11/07/17 08:42 (Aldactone) 12.5 mg DAILY PO 11/06/17 09:00 11/07/17 08:41 (Flonase Edu Spr) 1 spray BID NASAL 11/05/17 21:00 11/07/17 08:43 (Prinivil) 2.5 mg DAILY PO 11/06/17 09:00 11/07/17 08:40 (Zofran Odt) 4 mg Q6H PRN PO 11/05/17 15:45 (NS Flush) 2 ml UNSCH PRN IV FLUSH 11/05/17 13:30 (NS Flush) 2 ml BID IV FLUSH 11/05/17 21:00 11/06/17 19:38 Cefepime HCl 2000 mg/Sodium Chloride 100 ml @ 200 mls/hr Q12H IV 11/06/17 00:00 11/07/17 16:18 (Zithromax) 500 mg Q24H PO 11/06/17 13:30 11/07/17 14:41 (Duoneb Neb) 1 ampule Q4HR NEB PRN INH 11/05/17 13:30 (Zofran Inj) 4 mg Q6H PRN IV PUSH 11/05/17 13:30 11/07/17 17:24 (Duoneb Neb) 1 ampule Q6HR WHILE AWAKE NEB NEB 11/05/17 20:00 11/07/17 19:18 (D50w (Vial) Inj) 50 ml UNSCH PRN IV PUSH 11/05/17 14:30 (Glucagon Inj) 1 mg UNSCH PRN OTHER 11/05/17 14:30 (NovoLOG SUPPLEMENTAL SCALE) 1 ACHS SLIDING SCALE SQ 11/05/17 17:00 11/07/17 17:14 (Pill Splitter) 1 ea UNSCH PRN OTHER 11/05/17 15:45 11/06/17 09:16 Metronidazole 100 ml @ 100 mls/hr Q8H IV 11/05/17 20:00 11/07/17 16:55 (Vancomycin 25 Mg/ml Liq) 500 mg Q6H PO 11/05/17 20:00 11/07/17 14:33 Pharmacy Profile Note 0 ml @ 0 mls/hr UNSCH OTHER 11/07/17 14:15 (Dificid) 200 mg BID PO 11/07/17 21:00 11/17/17 20:59 Vancomycin HCl 1250 mg/Sodium Chloride 262.5 ml @ 250 mls/hr Q24H IV 11/08/17 12:00 Miscellaneous Information SPECIFIC LAB TO BE DRAWN:VANCOMYCIN TROUGH DATE TO... ONCE ONCE .XX 11/10/17 11:45 11/10/17 11:46 Family History Patient he has a daughter . Substance Use Tobacco: None reported Alcohol: None reported Prescription med abuse: None reported Illicits: None reported . Psychosocial History Patient was born and raised in [place]. She moved to [place] in 1959. Patient has been to her for 67 years. 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 Patient has 3 adult children, 1 son and 2 daughters. Patient currently lives at a retirement facility where she is getting rehabilitation otherwise she lives at home with her . . Spiritual/Cultural Factors Patient is [employer]. . Living Will: Completed, but not made available Health Care Surrogate: Completed, but not made available Health Care Surrogate(s): Health Care Proxy- Spouse- Fox Bustos- [phone] . Ethical and Legal Issues None identified at this time . Physical Exam Vital Signs Date Time Temp Pulse Resp B/P (MAP) Pulse Ox O2 Delivery O2 Flow Rate FiO2 11/07/17 19:22 95 Nasal Cannula 3.00 11/07/17 16:00 98.5 103 18 150/66 (94) 94 11/07/17 12:00 98.3 81 18 148/66 (93) 98 11/07/17 08:00 96.9 94 18 138/75 (96) 96 11/07/17 07:42 96 Nasal Cannula 2.00 11/07/17 00:00 96.4 78 20 112/58 (76) 97 11/07/17 11/08/17 18:59 06:59 Intake Total 360 ml Balance 360 ml Intake Oral 360 ml # Voids 2 # Bowel Movements 2 Exam CONSTITUTIONAL/GENERAL: This is an adequately nourished patient, in mild respiratory distress TUBES/LINES/DRAINS:PIV SKIN: No jaundice, rashes, or lesions. Ecchymoses on upper extremities. No wounds seen anteriorly. Skin temperature appropriate. Not diaphoretic. HEAD: Atraumatic. Normocephalic. EYES: Pupils equal and round and reactive. Extraocular motions intact. No scleral icterus. No injection or drainage. Fundi not examined. ENT: Hearing grossly normal. Nose without bleeding or purulent drainage. NECK: Trachea midline. Supple, nontender. CARDIOVASCULAR: Irregular rate and rhythm without murmurs, gallops, or rubs. No JVD. Peripheral pulses symmetric. RESPIRATORY/CHEST: Rhonchi in all resendiz and wheezing. Patient also have a dry cough. GASTROINTESTINAL: Abdomen soft, non-tender, nondistended. No guarding. Hyperactive Bowel sounds present. GENITOURINARY: Without palpable bladder distension. MUSCULOSKELETAL: Extremities without clubbing, cyanosis, or edema. No joint tenderness or effusion noted. No calf tenderness. No mottling or clubbing. NEUROLOGICAL: Awake and lethargic. Motor and sensory grossly within normal limits. Follows commands. Moves all extremities. PSYCHIATRIC: No obvious anxiety/depression. no apparent hallucinations or other psychotic thought process. Diagnostic Tests Laboratory Laboratory Tests Test 11/05/17 11:05 11/06/17 08:23 11/07/17 07:37 White Blood Count 18.8 TH/MM3 (4.0-11.0) 19.8 TH/MM3 (4.0-11.0) 26.2 TH/MM3 (4.0-11.0) Red Blood Count 4.18 MIL/MM3 (4.00-5.30) 3.77 MIL/MM3 (4.00-5.30) 3.83 MIL/MM3 (4.00-5.30) Hemoglobin 10.0 GM/DL (11.6-15.3) 9.2 GM/DL (11.6-15.3) 9.2 GM/DL (11.6-15.3) Hematocrit 31.6 % (35.0-46.0) 28.8 % (35.0-46.0) 29.5 % (35.0-46.0) Mean Corpuscular Volume 75.6 FL (80.0-100.0) 76.5 FL (80.0-100.0) 77.1 FL (80.0-100.0) Mean Corpuscular Hemoglobin 24.0 PG (27.0-34.0) 24.4 PG (27.0-34.0) 24.1 PG (27.0-34.0) Mean Corpuscular Hemoglobin Concent 31.7 % (32.0-36.0) 31.9 % (32.0-36.0) 31.2 % (32.0-36.0) Red Cell Distribution Width 19.7 % (11.6-17.2) 19.7 % (11.6-17.2) 19.4 % (11.6-17.2) Platelet Count 251 TH/MM3 (150-450) 222 TH/MM3 (150-450) 251 TH/MM3 (150-450) Mean Platelet Volume 7.9 FL (7.0-11.0) 7.6 FL (7.0-11.0) 7.7 FL (7.0-11.0) Neutrophils (%) (Auto) 85.9 % (16.0-70.0) 92.4 % (16.0-70.0) 91.0 % (16.0-70.0) Lymphocytes (%) (Auto) 4.5 % (9.0-44.0) 3.2 % (9.0-44.0) 2.8 % (9.0-44.0) Monocytes (%) (Auto) 9.4 % (0.0-8.0) 4.4 % (0.0-8.0) 6.1 % (0.0-8.0) Eosinophils (%) (Auto) 0.0 % (0.0-4.0) 0.0 % (0.0-4.0) 0.0 % (0.0-4.0) Basophils (%) (Auto) 0.2 % (0.0-2.0) 0.0 % (0.0-2.0) 0.1 % (0.0-2.0) Neutrophils # (Auto) 16.1 TH/MM3 (1.8-7.7) 18.2 TH/MM3 (1.8-7.7) 23.9 TH/MM3 (1.8-7.7) Lymphocytes # (Auto) 0.9 TH/MM3 (1.0-4.8) 0.6 TH/MM3 (1.0-4.8) 0.7 TH/MM3 (1.0-4.8) Monocytes # (Auto) 1.8 TH/MM3 (0-0.9) 0.9 TH/MM3 (0-0.9) 1.6 TH/MM3 (0-0.9) Eosinophils # (Auto) 0.0 TH/MM3 (0-0.4) 0.0 TH/MM3 (0-0.4) 0.0 TH/MM3 (0-0.4) Basophils # (Auto) 0.0 TH/MM3 (0-0.2) 0.0 TH/MM3 (0-0.2) 0.0 TH/MM3 (0-0.2) CBC Comment DIFF FINAL DIFF FINAL DIFF FINAL Differential Comment Stool C. difficile Toxin (PCR) POSITIVE (NEGATIVE) Stl C. difficile Toxin Epiderm 027 PRESUMPTIVE POSITIVE Blood Urea Nitrogen 41 MG/DL (7-18) 45 MG/DL (7-18) 43 MG/DL (7-18) Creatinine 1.67 MG/DL (0.50-1.00) 1.33 MG/DL (0.50-1.00) 1.24 MG/DL (0.50-1.00) Random Glucose 226 MG/DL (74-106) 285 MG/DL (74-106) 166 MG/DL (74-106) Total Protein 6.9 GM/DL (6.4-8.2) Albumin 2.6 GM/DL (3.4-5.0) Calcium Level 8.3 MG/DL (8.5-10.1) 8.6 MG/DL (8.5-10.1) 9.0 MG/DL (8.5-10.1) Magnesium Level 1.7 MG/DL (1.5-2.5) Alkaline Phosphatase 60 U/L (45-117) Aspartate Amino Transf (AST/SGOT) 23 U/L (15-37) Alanine Aminotransferase (ALT/SGPT) 12 U/L (10-53) Total Bilirubin 0.6 MG/DL (0.2-1.0) Sodium Level 127 MEQ/L (136-145) 132 MEQ/L (136-145) 137 MEQ/L (136-145) Potassium Level 4.4 MEQ/L (3.5-5.1) 4.2 MEQ/L (3.5-5.1) 4.5 MEQ/L (3.5-5.1) Chloride Level 97 MEQ/L (98-107) 105 MEQ/L (98-107) 108 MEQ/L (98-107) Carbon Dioxide Level 18.3 MEQ/L (21.0-32.0) 19.3 MEQ/L (21.0-32.0) 18.4 MEQ/L (21.0-32.0) Anion Gap 12 MEQ/L (5-15) 8 MEQ/L (5-15) 11 MEQ/L (5-15) Estimat Glomerular Filtration Rate 29 ML/MIN (>89) 38 ML/MIN (>89) 41 ML/MIN (>89) Lactic Acid Level 1.8 mmol/L (0.4-2.0) Total Creatine Kinase 40 U/L (26-192) Troponin I LESS THAN 0.02 NG/ML Result Diagram: 11/07/1737 11/07/1737 Microbiology Microbiology Date/Time Source Procedure Growth Status 11/07/17 19:16 Blood Peripheral Aerobic Blood Culture Pending Received 11/07/17 19:16 Blood Peripheral Anaerobic Blood Culture Pending Received 11/07/17 19:00 Blood Peripheral Aerobic Blood Culture Pending Received 11/07/17 19:00 Blood Peripheral Anaerobic Blood Culture Pending Received 11/05/17 11:05 Blood Peripheral Aerobic Blood Culture - Preliminary S. Aureus Mrsa Resulted 11/05/17 11:05 Anaerobic Blood Culture - Preliminary Citrobacter Species Resulted 11/05/17 11:00 Blood Peripheral Aerobic Blood Culture - Preliminary NO GROWTH IN 2 DAYS Resulted 11/05/17 11:00 Anaerobic Blood Culture - Preliminary Staphylococcus Aureus Resulted 11/07/17 14:55 Sputum Expectorated Sputum Gram Stain Pending Received 11/07/17 14:55 Sputum Expectorated Sputum Sputum Culture Pending Received 11/05/17 11:05 Nasal Aspirate Influenza Types A,B Antigen (BANG) - Final NEGATIVE FOR FLU A AND B ANTIGEN.... Complete 11/05/17 14:50 Urine Clean Catch Legionella Antigen - Final PRESUMPTIVE NEGATIVE FOR LEGIONELLA P... Complete 11/05/17 14:50 Urine Clean Catch Streptococcus pneumoniae Antigen (M - Final PRESUMPTIVE NEGATIVE FOR STREPTOCOCCU... Complete Imaging Last Impressions Chest X-Ray 11/05/17 1041 Signed Impressions: Service Date/Time: Sunday, November 05, 2017 10:54 - CONCLUSION: There is a new parenchymal infiltrate in the right lower lung suggestive of pneumonia. Leo Thapa MD Chest CT 11/05/17 0000 Signed Impressions: Service Date/Time: Sunday, November 05, 2017 21:55 - CONCLUSION: 1. Severe multifocal nodular air space consolidation in the lower lobes, new since the prior CT. There is a nodular consolidative mass in the right lower lobe measuring 4 cm. Since these findings are new in the last few weeks, that suggests against a malignant process. An infectious process is most likely. Given the bibasilar distribution aspiration should also be a consideration. 2. Nonacute findings include emphysema with interstitial lung changes, coronary artery calcification and severe atherosclerotic disease of aorta, and aortic valve replacement. 3. There are multiple mildly enlarged lymph nodes in the mediastinum which may be reactive secondary to the airspace process. Richard Ortiz MD Abdomen/Pelvis CT 11/05/17 0000 Signed Impressions: Service Date/Time: Sunday, November 05, 2017 21:55 - CONCLUSION: 1. No acute finding is identified within the abdomen or pelvis on this noncontrast examination is mildly degraded by respiratory motion artifact. The inflammatory changes present in the sigmoid colon on the prior study have resolved. 2. Severe atherosclerotic disease. Richard Ortiz MD Patient/Family Conference Family Conference Location: Bedside Issues Discussed: * Palliative care role, purpose, approach * Additional medical, psychosocial, and spiritual history * Patients general health, functional status, and cognitive changes in the months leading up to the current hospitalization * Patient/family understanding of the current medical problems * Patient/family understanding of prognosis * Patients goals of care as best understood from advance directives and/or conversations and/or values * Current medical treatment options and benefits/burdens of those options * Likely scenarios comparing ongoing aggressive care with a transition to comfort measures only * Questions answered to the best of my ability * Introduced hospice philosophy and benefits * Palliative care contact information provided Assessment and Plan Disease Oriented Problem List: (1) Sepsis (2) Right lower lobe pneumonia (3) Diarrhea (4) CKD (chronic kidney disease) stage 3, GFR 30-59 ml/min (5) Atrial fibrillation, chronic (6) Diabetes Symptom Scale: (1) Debility Comment: Progressive. Multiple hospitalizations in the past few months. . (2) Shortness of breath Comment: Patient has history of chronic hypoxic respiratory failure and is on home oxygen. . Pertinent Non-Medical Issues Psychosocial:Patient was born and raised in [place]. She moved to [place] in 1959. Patient has been to her for 67 years. 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 Patient has 3 adult children, 1 son and 2 daughters. Patient currently lives at a retirement facility where she is getting rehabilitation otherwise she lives at home with her . Spiritual:Patient is [employer]. Legal:Living will and HCS completed but not made available Ethical issues impacting care: None identified at this time . Important Contacts Spouse- Fox Bustos- [phone] [id number]-Oqre Noris [phone] Son-Akash Giles [phone] . Prognosis Mrs Bustos is a 87-year-old female with a past medical history of atrial fibrillation, aortic valve replacement, congestive heart failure, hypertension, hyperlipidemia, recurrent C. difficile colitis, chronic kidney disease stage III and diabetes. Patient was brought to the ER via EMS on 11/05/17 from the retirement facility with complaints of fever, shortness of breath, cough and diarrhea. Patient continues to have recurrent C diff and has had multiple hospitalizationsin the past few months. Given ongoing comorbidities patient remains at high risk for further complications, deterioration, decline and . . 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 Recommending shared decision making with her since there is component of forgetfulness. In the event that patient is incapacitated, her Fox Bustos will participate as her health care proxy. Goals: CODE STATUS: No Code DNR Patient seen in the presence of her daughter Noris. She narrated patient`s trajectory of decline and how patient has tried to do rehabilitation and continues to decline. Patient`s daughter stated that patient`s is her health care surrogate and will try to bring in copies. Patient`s daughter stated the all 3 children and patient are amenable to comfort measures only considering what patient has gone through requested a meeting with palliative when her brother Chan is back in town most likely on to discuss goals of care. SYMPTOMS: * Shortness of breath: Multifactorial. Patient has history of CHF and chronic hypoxic respiratory failure and on home oxygen. Chest x-ray revealed right lower lobe pneumonia. Patient currently on Brio elliptical inhaler, furosemide , Aldactone, and duo nebs. Currently on 3 L nasal cannula and saturating in the mid to high 90s. No recommendations. * Debility: Progressive. Patient has had multiple hospitalizations in the past few months mostly for recurrent C. difficile. She has been in rehabilitation several times. Patient requires assistance with bathing, dressing, toileting and has had private caregivers at home with [facility]. Patient may not be able to fully participate in rehabilitation due to generalized weakness. No recommendations at this time Palliative care will continue to follow the patient during hospital course as condition evolves, to assist patient/decision-maker with understanding of their medical conditions, weighing benefits/burdens of treatment options, for clarification of goals of treatment. Additionally will assist with any symptoms of palliative concern Thank you for the opportunity to participate in the care of Ms. Bustos. Attestation To help prompt me to consider important information that might be impacting today's encounter and assessment, information from prior notes written by myself or my colleagues may have been "brought forward" into today's note. My signature on this note, however, is an attestation that I personally performed the exam, history, and/or decision-making noted today, and, unless otherwise indicated, the interactions with patient, family, and staff as well as the review of records all occurred today. I also attest that the listed assessment and stated plan reflect my best clinical judgment today based on the combination of historical information, prior notes, and today's exam/ interactions. When time spent is documented, it refers only to time spent today by the signer, or if indicated, combined time spent today by collaborating physician/nurse practitioner. Raul Dai Nov 07, 2017 21:02
[2017-11-08] VITALS: BP 132/67; PULSE 99; RESP 18; TEMP 96.6; O2SAT 92
[2017-11-08] MEDS: ONDANSETRON HCL 4 MG/2 ML VIAL IV PUSH PRN (01:32)
[2017-11-08] MEDS: guaiFENesin SOLUTION 200 MG/10 ML CUP PO PRN (01:32)
[2017-11-08] MEDS: CEFEPIME INJ 2,000 MG in SODIUM CHLORIDE 0.9% INJ 100 ML IV SCH ×2 (01:32→12:00)
[2017-11-08] MEDS: VANCOMYCIN 25 MG/ML SUSP 100 ML BOTTLE PO SCH ×3 (01:42→13:49)
[2017-11-08] MEDS: metroNIDAZOLE 500 MG INJ 100 ML IV SCH ×2 (03:51→12:00)
[2017-11-08 08:00] VITALS: BP 152/74; PULSE 104; RESP 19; TEMP 97.7; O2SAT 90
[2017-11-08] MEDS: RESP: ALBUTEROL 2.5 MG/IPRATROPIUM 0.5 MG NEB (SCH) NEB ×2 (08:00→13:29)
[2017-11-08] MEDS: INSULIN ASPART SUPPLEMENTAL SCALE SQ SCH ×3 (08:00→17:00)
[2017-11-08 08:13] LABS: AUTOMATED NEUTROPHIL # 20.8 TH/MM3 (1.8-7.7); BASOPHIL # 0.1 TH/MM3 (0-0.2); BASOPHIL % 0.2 % (0.0-2.0); HEMATOCRIT 28.8 % (35.0-46.0); HEMOGLOBIN 9.2 GM/DL (11.6-15.3); LYMPH % 5.3 % (9.0-44.0); LYMPHOCYTE # 1.3 TH/MM3 (1.0-4.8); MEAN CELL VOLUME 76.2 FL (80.0-100.0); MEAN CORPUSCULAR HEMOGLOBIN 24.3 PG (27.0-34.0); MEAN CORPUSCULAR HGB CONC 31.8 % (32.0-36.0); MEAN PLATELET VOLUME 7.5 FL (7.0-11.0); MONO % 8.9 % (0.0-8.0); MONOCYTE # 2.2 TH/MM3 (0-0.9); NEUT % 85.6 % (16.0-70.0); PLATELET COUNT 232 TH/MM3 (150-450); RED BLOOD COUNT 3.78 MIL/MM3 (4.00-5.30); RED CELL DISTRIBUTION WIDTH 19.7 % (11.6-17.2); WHITE BLOOD COUNT 24.3 TH/MM3 (4.0-11.0)
[2017-11-08 08:47] LABS: BICARBONATE 17.1 MEQ/L (21.0-32.0); CALCIUM 8.9 MG/DL (8.5-10.1); CREATININE 1.19 MG/DL (0.50-1.00)
[2017-11-08] MEDS: SODIUM CHLORIDE 0.9% FLUSH 10 ML FLUSH IV FLUSH SCH (09:00)
[2017-11-08] MEDS: SPIRONOLACTONE 25 MG TAB PO SCH (09:00)
[2017-11-08] MEDS: FLUTICASONE 100 MCG/VILANTEROL 25 MCG INHALER INH SCH (09:00)
[2017-11-08] MEDS: LISINOPRIL 5 MG TAB PO SCH (09:00)
[2017-11-08] MEDS: FIDAXOMICIN 200 MG TAB PO SCH (09:00)
[2017-11-08] MEDS: CARVEDILOL 12.5 MG TAB PO SCH (09:00)
[2017-11-08] MEDS: APIXABAN 2.5 MG TABLET PO SCH (09:00)
[2017-11-08] MEDS: FLUTICASONE PROPIONATE 50 MCG/ACT 16 GM NASAL SPRAY NASAL SCH (09:00)
[2017-11-08] MEDS: ISOSORBIDE MONONITRATE 60 MG CR TAB (IMDUR) PO SCH (09:00)
[2017-11-08] MEDS: FUROSEMIDE 20 MG TAB PO SCH (09:00)
[2017-11-08] MEDS: FERROUS SULFATE 325 MG (65 MG ELEMENTAL IRON) TAB PO SCH (09:00)
[2017-11-08] MEDS: ASPIRIN 81 MG CHEW TAB PO SCH (09:00)
[2017-11-08 09:21] LABS: BANDS 5 % (0-6); LYMPHOCYTES 5 % (9-44); MONOCYTES 6 % (0-8); MYELOCYTES 1 % (0-0); NEUTROPHIL # MANUAL DIFF 21.6 TH/MM3 (1.8-7.7); POLYS (SEG NEUTROPHILS) 83 % (16-70)
[2017-11-08 09:22] LABS: BURR CELLS 1+ (NORMAL); TOXIC GRANULATION 1+ (NORMAL)
[2017-11-08] MEDS ORDERED: VANCOMYCIN INJ 1,250 MG in SODIUM CHLOR 0.9% 250 ML INJ 250 ML IV SCH (12:00)
[2017-11-08] MEDS: AZITHROMYCIN 250 MG TAB PO SCH (12:16)
--- NOTE | 2017-11-08 13:28 | HHI.PR ---
Subjective Remarks Patient is requesting hospice. As per RN patient has been refusing all treatment offered here. Denies cp/sob. Denies abdominal pain, nausea or vomiting. Objective Vitals Vital Signs Date Time Temp Pulse Resp B/P (MAP) Pulse Ox O2 Delivery O2 Flow Rate FiO2 11/08/17 08:43 Nasal Cannula 2.00 11/08/17 08:00 97.7 104 19 152/74 (100) 90 11/08/17 00:00 96.6 99 18 132/67 (88) 92 11/07/17 20:00 99.3 100 18 124/62 (82) 95 11/07/17 19:22 95 Nasal Cannula 3.00 11/07/17 16:00 98.5 103 18 150/66 (94) 94 I/O 11/07/17 11/07/17 11/07/17 11/08/17 11/08/17 11/08/17 07:00 15:00 23:00 07:00 15:00 23:00 Intake Total 560 ml 460 ml 200 ml Output Total 1750 ml Balance -1190 ml 460 ml 200 ml Intake Oral 360 ml 360 ml IV Total 200 ml 100 ml 200 ml Output Urine Total 1750 ml # Voids 2 2 # Bowel Movements 1 2 3 Result Diagram: 11/08/17 0733 11/08/17 0735 Imaging Last Impressions Chest X-Ray 11/05/17 1041 Signed Impressions: Service Date/Time: Sunday, November 05, 2017 10:54 - CONCLUSION: There is a new parenchymal infiltrate in the right lower lung suggestive of pneumonia. Leo Thapa MD Chest CT 11/05/17 0000 Signed Impressions: Service Date/Time: Sunday, November 05, 2017 21:55 - CONCLUSION: 1. Severe multifocal nodular air space consolidation in the lower lobes, new since the prior CT. There is a nodular consolidative mass in the right lower lobe measuring 4 cm. Since these findings are new in the last few weeks, that suggests against a malignant process. An infectious process is most likely. Given the bibasilar distribution aspiration should also be a consideration. 2. Nonacute findings include emphysema with interstitial lung changes, coronary artery calcification and severe atherosclerotic disease of aorta, and aortic valve replacement. 3. There are multiple mildly enlarged lymph nodes in the mediastinum which may be reactive secondary to the airspace process. Richard Ortiz MD Abdomen/Pelvis CT 11/05/17 0000 Signed Impressions: Service Date/Time: Sunday, November 05, 2017 21:55 - CONCLUSION: 1. No acute finding is identified within the abdomen or pelvis on this noncontrast examination is mildly degraded by respiratory motion artifact. The inflammatory changes present in the sigmoid colon on the prior study have resolved. 2. Severe atherosclerotic disease. Richard Ortiz MD Objective Remarks GENERAL: Elderly pleasant female sitting up in bed in NAD. SKIN: Warm and dry. HEENT: Pupils equal and round. MMM. NECK: Supple no tender LAD or JVD. HEART: IRR with 3/6 murmur. LUNGS: Intermittent productive cough throughout exam. R base with crackles and diminished breath sounds. ABDOMEN: +BS. Soft, NT, ND. EXTREMITIES: No LE edema or calf tenderness. NEURO: Awake and alert. PSYCH: Appropriate mood and affect. Medications and IVs Current Medications Medications (Trade) Dose Ordered Sig/Selma Route Start Time Stop Time Status Last Admin (Tylenol) 650 mg Q6H PRN PO 11/05/17 13:30 (Eliquis) 2.5 mg BID PO 11/05/17 21:00 11/07/17 20:29 (Aspirin Chew) 81 mg DAILY PO 11/06/17 09:00 11/07/17 08:41 (Coreg) 12.5 mg BID PO 11/05/17 21:00 11/07/17 20:28 (Ferrous Sulfate) 325 mg BID PO 11/05/17 21:00 11/07/17 20:29 (Breo Ellipta 100-25 Inh) 1 puff DAILY INH 11/06/17 09:00 11/07/17 08:43 (Lasix) 20 mg DAILY PO 11/06/17 09:00 11/07/17 08:41 (Robitussin Liq) 200 mg Q8HR PRN PO 11/05/17 13:30 11/08/17 01:32 (Imdur) 60 mg DAILY PO 11/06/17 09:00 11/07/17 08:42 (Aldactone) 12.5 mg DAILY PO 11/06/17 09:00 11/07/17 08:41 (Flonase Edu Spr) 1 spray BID NASAL 11/05/17 21:00 11/07/17 20:30 (Prinivil) 2.5 mg DAILY PO 11/06/17 09:00 11/07/17 08:40 (Zofran Odt) 4 mg Q6H PRN PO 11/05/17 15:45 (NS Flush) 2 ml UNSCH PRN IV FLUSH 11/05/17 13:30 (NS Flush) 2 ml BID IV FLUSH 11/05/17 21:00 11/06/17 19:38 Cefepime HCl 2000 mg/Sodium Chloride 100 ml @ 200 mls/hr Q12H IV 11/06/17 00:00 11/08/17 01:32 (Zithromax) 500 mg Q24H PO 11/06/17 13:30 11/07/17 14:41 (Duoneb Neb) 1 ampule Q4HR NEB PRN INH 11/05/17 13:30 (Zofran Inj) 4 mg Q6H PRN IV PUSH 11/05/17 13:30 11/08/17 01:32 (Duoneb Neb) 1 ampule Q6HR WHILE AWAKE NEB NEB 11/05/17 20:00 11/07/17 19:18 (D50w (Vial) Inj) 50 ml UNSCH PRN IV PUSH 11/05/17 14:30 (Glucagon Inj) 1 mg UNSCH PRN OTHER 11/05/17 14:30 (NovoLOG SUPPLEMENTAL SCALE) 1 ACHS SLIDING SCALE SQ 11/05/17 17:00 11/07/17 17:14 (Pill Splitter) 1 ea UNSCH PRN OTHER 11/05/17 15:45 11/06/17 09:16 Metronidazole 100 ml @ 100 mls/hr Q8H IV 11/05/17 20:00 11/08/17 03:51 (Vancomycin 25 Mg/ml Liq) 500 mg Q6H PO 11/05/17 20:00 11/08/17 01:42 Pharmacy Profile Note 0 ml @ 0 mls/hr UNSCH OTHER 11/07/17 14:15 (Dificid) 200 mg BID PO 11/07/17 21:00 11/17/17 20:59 11/07/17 20:29 Vancomycin HCl 1250 mg/Sodium Chloride 262.5 ml @ 250 mls/hr Q24H IV 11/08/17 12:00 Miscellaneous Information SPECIFIC LAB TO BE DRAWN:VANCOMYCIN TROUGH DATE TO... ONCE ONCE .XX 11/10/17 11:45 11/10/17 11:46 A/P Problem List: (1) MRSA bacteremia ICD Code: R78.81 - Bacteremia (2) Sepsis ICD Code: A41.9 - Sepsis, unspecified organism Status: Acute (3) Right lower lobe pneumonia ICD Code: J18.1 - Lobar pneumonia, unspecified organism Status: Acute (4) Diarrhea ICD Code: R19.7 - Diarrhea, unspecified (5) Generalized weakness ICD Code: R53.1 - Weakness (6) Diabetes ICD Code: E11.9 - Type 2 diabetes mellitus without complications (7) Hypertension ICD Code: I10 - Essential (primary) hypertension (8) CKD (chronic kidney disease) stage 3, GFR 30-59 ml/min ICD Code: N18.3 - Chronic kidney disease, stage 3 (moderate) (9) Atrial fibrillation, chronic ICD Code: I48.2 - Chronic atrial fibrillation Assessment and Plan 87 year old female presenting from SNF with diarrhea, cough, fever, and shortness of breath found to have right lower lobe pneumonia as well as C. diff. She is now growing MRSA on blood culture. MRSA bacteremia - ?source PNA - ID following - On IV vanc Sepsis -Present on admission since patient presented with leukocytosis and increased respiratory rate more than 20. - Secondary to pneumonia, C. diff, and now MRSA bacteremia - See individual plans - Hydrate slowly given history of CHF - Id consulted and following. Right lower lobe pneumonia - Being treated as HCAP as patient is coming from the group home. - CT chest showing severe multifocal nodular airspace consolidation in the lower lobes with the right measuring 4 cm suggestive of infectious process - Continue IV Vancomycin, Cefepime and oral Azithromycin. 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 Generalized weakness PT to eval and treat Diabetes Sliding scale insulin with Accu-Cheks Hypertension Continue home medications - Satble URSULA on CKD (chronic kidney disease) stage 3, GFR 30-59 ml/min Stable Avoid nephrotoxins Creatinine improving on IV fluids. Atrial fibrillation, chronic Rate controlled. Continue Eliquis. The patient is refusing all treatment at this point, she is awake alert oriented 3. The patient requests to be discharged to a care center on hospice. Hospice consult placed. Discharge Planning Possible DC to hospice later today. Problem Qualifiers (1) Sepsis: Qualified Codes: A41.9 - Sepsis, unspecified organism (2) Right lower lobe pneumonia: Qualified Codes: J18.1 - Lobar pneumonia, unspecified organism David Puentes MD Nov 08, 2017 13:28
--- NOTE | 2017-11-08 15:40 | HHI.PR ---
Addendum to Inpatient Note Additional Information pt is now transferred to hospice care will sign off Lina Henry MD Nov 08, 2017 15:40
--- NOTE | 2017-11-08 16:10 | HHI.HCPN ---
Reason for visit a. To assist with evaluation and management of symptoms including:shortness of breath and debility b. To assist medical decision maker(s) with: better understanding of current medical conditions; weighing benefits/burdens of medical treatment options; making medical treatment decisions. Subjective/Interval History Patient seen and examined in the presence of her daughter and other family members. Patient awake, alert, more conversant today compared to yesterday. Patient still has a cough. Patient forgetful and endorsing that she cannot remember many things. Patient has been refusing medications and all treatment offered to her today and she requested hospice. Hospice consult placed and patient`s is supportive of patient`s decision. Patient no longer wants any further aggressive treatment, she states that she is now tired and has tried for the past few months and she feels that she is now ready for comfort care only until she dies. Patient`s meeting with senior consulting manager. No questions for palliative. Case discussed with senior consulting manager. . Family/friend interactions Patient`s , daughters and grandchildren at bedside. . Advance Directives Living Will: Completed, but not made available Health Care Surrogate: Completed, but not made available Advance Directive Specifics Health Care Surrogate(s): Health Care Proxy- Spouse- Fox Bustos- [phone] . Objective Vital Signs Date Time Temp Pulse Resp B/P (MAP) Pulse Ox O2 Delivery O2 Flow Rate FiO2 11/08/17 08:43 Nasal Cannula 2.00 11/08/17 08:00 97.7 104 19 152/74 (100) 90 11/08/17 00:00 96.6 99 18 132/67 (88) 92 11/07/17 20:00 99.3 100 18 124/62 (82) 95 11/07/17 19:22 95 Nasal Cannula 3.00 11/07/17 16:00 98.5 103 18 150/66 (94) 94 Intake & Output 11/08/17 11/08/17 07:00 19:00 Intake Total 300 ml Balance 300 ml IV Total 300 ml # Voids 2 # Bowel Movements 3 Physical Exam CONSTITUTIONAL/GENERAL: This is an adequately nourished patient, in mild respiratory distress TUBES/LINES/DRAINS:PIV SKIN: No jaundice, rashes, or lesions. Ecchymoses on upper extremities. No wounds seen anteriorly. Skin temperature appropriate. Not diaphoretic. HEAD: Atraumatic. Normocephalic. EYES: Pupils equal and round and reactive. Extraocular motions intact. No scleral icterus. No injection or drainage. Fundi not examined. ENT: Hearing grossly normal. Nose without bleeding or purulent drainage. NECK: Trachea midline. Supple, nontender. CARDIOVASCULAR: Irregular rate and rhythm without murmurs, gallops, or rubs. No JVD. Peripheral pulses symmetric. RESPIRATORY/CHEST: Rhonchi in all resendiz. Expiratory wheezing. Continues to have a dry cough. GASTROINTESTINAL: Abdomen soft, non-tender, nondistended. No guarding. Hyperactive Bowel sounds present. Still having diarrhea GENITOURINARY: Without palpable bladder distension. MUSCULOSKELETAL: Extremities without clubbing, cyanosis, or edema. No joint tenderness or effusion noted. No calf tenderness. No mottling or clubbing. NEUROLOGICAL: Awake and lethargic. Motor and sensory grossly within normal limits. Follows commands. Moves all extremities. PSYCHIATRIC: No obvious anxiety/depression. no apparent hallucinations or other psychotic thought process. Diagnostic Tests Laboratory Laboratory Tests Test 11/06/17 08:23 11/07/17 07:37 11/08/17 07:33 11/08/17 07:35 White Blood Count 19.8 TH/MM3 (4.0-11.0) 26.2 TH/MM3 (4.0-11.0) 24.3 TH/MM3 (4.0-11.0) Red Blood Count 3.77 MIL/MM3 (4.00-5.30) 3.83 MIL/MM3 (4.00-5.30) 3.78 MIL/MM3 (4.00-5.30) Hemoglobin 9.2 GM/DL (11.6-15.3) 9.2 GM/DL (11.6-15.3) 9.2 GM/DL (11.6-15.3) Hematocrit 28.8 % (35.0-46.0) 29.5 % (35.0-46.0) 28.8 % (35.0-46.0) Mean Corpuscular Volume 76.5 FL (80.0-100.0) 77.1 FL (80.0-100.0) 76.2 FL (80.0-100.0) Mean Corpuscular Hemoglobin 24.4 PG (27.0-34.0) 24.1 PG (27.0-34.0) 24.3 PG (27.0-34.0) Mean Corpuscular Hemoglobin Concent 31.9 % (32.0-36.0) 31.2 % (32.0-36.0) 31.8 % (32.0-36.0) Red Cell Distribution Width 19.7 % (11.6-17.2) 19.4 % (11.6-17.2) 19.7 % (11.6-17.2) Platelet Count 222 TH/MM3 (150-450) 251 TH/MM3 (150-450) 232 TH/MM3 (150-450) Mean Platelet Volume 7.6 FL (7.0-11.0) 7.7 FL (7.0-11.0) 7.5 FL (7.0-11.0) Neutrophils (%) (Auto) 92.4 % (16.0-70.0) 91.0 % (16.0-70.0) 85.6 % (16.0-70.0) Lymphocytes (%) (Auto) 3.2 % (9.0-44.0) 2.8 % (9.0-44.0) 5.3 % (9.0-44.0) Monocytes (%) (Auto) 4.4 % (0.0-8.0) 6.1 % (0.0-8.0) 8.9 % (0.0-8.0) Eosinophils (%) (Auto) 0.0 % (0.0-4.0) 0.0 % (0.0-4.0) 0.0 % (0.0-4.0) Basophils (%) (Auto) 0.0 % (0.0-2.0) 0.1 % (0.0-2.0) 0.2 % (0.0-2.0) Neutrophils # (Auto) 18.2 TH/MM3 (1.8-7.7) 23.9 TH/MM3 (1.8-7.7) 20.8 TH/MM3 (1.8-7.7) Lymphocytes # (Auto) 0.6 TH/MM3 (1.0-4.8) 0.7 TH/MM3 (1.0-4.8) 1.3 TH/MM3 (1.0-4.8) Monocytes # (Auto) 0.9 TH/MM3 (0-0.9) 1.6 TH/MM3 (0-0.9) 2.2 TH/MM3 (0-0.9) Eosinophils # (Auto) 0.0 TH/MM3 (0-0.4) 0.0 TH/MM3 (0-0.4) 0.0 TH/MM3 (0-0.4) Basophils # (Auto) 0.0 TH/MM3 (0-0.2) 0.0 TH/MM3 (0-0.2) 0.1 TH/MM3 (0-0.2) CBC Comment DIFF FINAL DIFF FINAL AUTO DIFF Differential Comment FINAL DIFF MANUAL Blood Urea Nitrogen 45 MG/DL (7-18) 43 MG/DL (7-18) 32 MG/DL (7-18) Creatinine 1.33 MG/DL (0.50-1.00) 1.24 MG/DL (0.50-1.00) 1.19 MG/DL (0.50-1.00) Random Glucose 285 MG/DL (74-106) 166 MG/DL (74-106) 198 MG/DL (74-106) Calcium Level 8.6 MG/DL (8.5-10.1) 9.0 MG/DL (8.5-10.1) 8.9 MG/DL (8.5-10.1) Sodium Level 132 MEQ/L (136-145) 137 MEQ/L (136-145) 137 MEQ/L (136-145) Potassium Level 4.2 MEQ/L (3.5-5.1) 4.5 MEQ/L (3.5-5.1) 3.9 MEQ/L (3.5-5.1) Chloride Level 105 MEQ/L (98-107) 108 MEQ/L (98-107) 109 MEQ/L (98-107) Carbon Dioxide Level 19.3 MEQ/L (21.0-32.0) 18.4 MEQ/L (21.0-32.0) 17.1 MEQ/L (21.0-32.0) Anion Gap 8 MEQ/L (5-15) 11 MEQ/L (5-15) 11 MEQ/L (5-15) Estimat Glomerular Filtration Rate 38 ML/MIN (>89) 41 ML/MIN (>89) 43 ML/MIN (>89) Differential Total Cells Counted 100 Neutrophils % (Manual) 83 % (16-70) Band Neutrophils % 5 % (0-6) Lymphocytes % 5 % (9-44) Monocytes % 6 % (0-8) Neutrophils # (Manual) 21.6 TH/MM3 (1.8-7.7) Myelocytes 1 % (0-0) Toxic Granulation 1+ (NORMAL) Platelet Estimate NORMAL (NORMAL) Platelet Morphology Comment NORMAL (NORMAL) [place] Cells 1+ (NORMAL) Result Diagram: 11/08/17 0733 11/08/17 0735 Microbiology Microbiology Date/Time Source Procedure Growth Status 11/07/17 19:16 Blood Peripheral Aerobic Blood Culture - Preliminary NO GROWTH IN 1 DAY Resulted 11/07/17 19:16 Blood Peripheral Anaerobic Blood Culture - Preliminary NO GROWTH IN 1 DAY Resulted 11/07/17 19:00 Blood Peripheral Aerobic Blood Culture - Preliminary NO GROWTH IN 1 DAY Resulted 11/07/17 19:00 Blood Peripheral Anaerobic Blood Culture - Preliminary NO GROWTH IN 1 DAY Resulted 11/07/17 14:55 Sputum Expectorated Sputum Gram Stain - Final Resulted 11/07/17 14:55 Sputum Expectorated Sputum Sputum Culture - Preliminary IMMATURE GROWTH - REINCUBATE Resulted Assessment and Plan Disease Oriented Problem List: (1) Sepsis (2) Right lower lobe pneumonia (3) Diarrhea (4) CKD (chronic kidney disease) stage 3, GFR 30-59 ml/min (5) Atrial fibrillation, chronic (6) Diabetes Symptom Scale: (1) Debility Comment: Progressive. Multiple hospitalizations in the past few months. . (2) Shortness of breath Comment: Patient has history of chronic hypoxic respiratory failure and is on home oxygen. . Pertinent Non-Medical Issues Psychosocial:Patient was born and raised in [place]. She moved to [place] in 1959. Patient has been to her for 67 years. 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 Patient has 3 adult children, 1 son and 2 daughters. Patient currently lives at a [facility] where she is getting rehabilitation otherwise she lives at home with her . Spiritual:Patient is Religion. Legal:Living Will, DNR and HCS completed but not made available. Ethical issues impacting care: None identified at this time. . Important Contacts Spouse- Fox Bustos- [phone] [employer]-Cqerbp-Zfur, Deann [phone] Son-Akash Giles [phone] . Prognosis Mrs Bustos is a 87-year-old female with a past medical history of atrial fibrillation, aortic valve replacement, congestive heart failure, hypertension, hyperlipidemia, recurrent C. difficile colitis, chronic kidney disease stage III and diabetes. Patient was brought to the ER via EMS on 11/05/17 from the [facility] with complaints of fever, shortness of breath, cough and diarrhea. Patient continues to have recurrent C diff and has had multiple hospitalizationsin the past few months. Given ongoing comorbidities patient remains at high risk for further complications, deterioration, decline and . . 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 Recommending shared decision making with her since there is component of forgetfulness. In the event that patient is incapacitated, her Fox Bustos will participate as her health care proxy. Goals: Patient requested hospice- transitioning to comfort care only. Hospice consulted. CODE STATUS: No Code DNR SYMPTOMS: * Shortness of breath: Multifactorial. Patient has history of CHF and chronic hypoxic respiratory failure and on home oxygen. Chest x-ray revealed right lower lobe pneumonia. Patient currently on Brio elliptical inhaler, furosemide , Aldactone, and duo nebs. Currently on 3 L nasal cannula and saturating in the mid to high 90s. No recommendations. * Debility: Progressive. Patient has had multiple hospitalizations in the past few months mostly for recurrent C. difficile. She has been in rehabilitation several times. Patient requires assistance with bathing, dressing, toileting and has had private caregivers at home with [facility]. Patient may not be able to fully participate in rehabilitation due to generalized weakness. No recommendations at this time Palliative care will continue to follow the patient during hospital course as condition evolves, to assist patient/decision-maker with understanding of their medical conditions, weighing benefits/burdens of treatment options, for clarification of goals of treatment. Additionally will assist with any symptoms of palliative concern Attestation To help prompt me to consider important information that might be impacting today's encounter and assessment, information from prior notes written by myself or my colleagues may have been "brought forward" into today's note. My signature on this note, however, is an attestation that I personally performed the exam, history, and/or decision-making noted today, and, unless otherwise indicated, the interactions with patient, family, and staff as well as the review of records all occurred today. I also attest that the listed assessment and stated plan reflect my best clinical judgment today based on the combination of historical information, prior notes, and today's exam/ interactions. When time spent is documented, it refers only to time spent today by the signer, or if indicated, combined time spent today by collaborating physician/nurse practitioner. Raul Dai Nov 08, 2017 16:10
--- NOTE | 2017-11-08 17:19 | HHI.DCPOC ---
Discharge Care Plan Diagnosis: (1) Debility (2) MRSA bacteremia (3) Atrial fibrillation, chronic (4) CKD (chronic kidney disease) stage 3, GFR 30-59 ml/min (5) Hypertension (6) Diarrhea (7) Diabetes (8) Generalized weakness (9) Right lower lobe pneumonia (10) Sepsis (11) Clostridium difficile enterocolitis Goals to Promote Your Health * To prevent worsening of your condition and complications * To maintain your health at the optimal level Directions to Meet Your Goals Take your medications as prescribed Follow your dietary instruction Follow activity as directed Keep your appointments as scheduled Take your immunizations and boosters as scheduled If your symptoms worsen call your PCP, if no PCP go to Urgent Care Center or Emergency Room Smoking is Dangerous to Your Health. Avoid second hand smoke Call the 24-hour hour crisis hotline for domestic abuse at David Puentes MD Nov 08, 2017 17:19
--- NOTE | 2017-11-08 17:20 | HHI.DS ---
Discharge Summary Admission Date Nov 05, 2017 at 13:04 Discharge Date: Nov 08, 2017 Admitting Diagnosis right lower lobe pneumonia, sepsis, leukocytosis, URSULA (1) MRSA bacteremia ICD Code: R78.81 - Bacteremia (2) Sepsis ICD Code: A41.9 - Sepsis, unspecified organism Status: Acute (3) Right lower lobe pneumonia ICD Code: J18.1 - Lobar pneumonia, unspecified organism Status: Acute (4) Diarrhea ICD Code: R19.7 - Diarrhea, unspecified (5) Generalized weakness ICD Code: R53.1 - Weakness (6) Diabetes ICD Code: E11.9 - Type 2 diabetes mellitus without complications (7) Hypertension ICD Code: I10 - Essential (primary) hypertension (8) CKD (chronic kidney disease) stage 3, GFR 30-59 ml/min ICD Code: N18.3 - Chronic kidney disease, stage 3 (moderate) (9) Atrial fibrillation, chronic ICD Code: I48.2 - Chronic atrial fibrillation Brief History - From Admission 87-year-old female with a medical history significant for atrial fibrillation, aortic valve replacement, CHF, history of CVA 2 [facility] with complaints of cough, shortness of breath, fevers. 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 History obtained from her daughter and at bedside. They report the patient was doing fairly well at the rehabilitation facility until about 2 days ago when she started having a cough, shortness of breath, loss of appetite. She has a history significant for recurrent C. difficile colitis. Overnight the patient had about 6 episodes of diarrhea. Reported fevers of up to 102 last night at the long term facility. She denies abdominal pain, nausea or vomiting. CBC/BMP: 11/08/17 0733 11/08/17 0735 Significant Findings Laboratory Tests Test 11/06/17 08:23 11/07/17 07:37 11/08/17 07:33 11/08/17 07:35 White Blood Count 19.8 TH/MM3 (4.0-11.0) 26.2 TH/MM3 (4.0-11.0) 24.3 TH/MM3 (4.0-11.0) Red Blood Count 3.77 MIL/MM3 (4.00-5.30) 3.83 MIL/MM3 (4.00-5.30) 3.78 MIL/MM3 (4.00-5.30) Hemoglobin 9.2 GM/DL (11.6-15.3) 9.2 GM/DL (11.6-15.3) 9.2 GM/DL (11.6-15.3) Hematocrit 28.8 % (35.0-46.0) 29.5 % (35.0-46.0) 28.8 % (35.0-46.0) Mean Corpuscular Volume 76.5 FL (80.0-100.0) 77.1 FL (80.0-100.0) 76.2 FL (80.0-100.0) Mean Corpuscular Hemoglobin 24.4 PG (27.0-34.0) 24.1 PG (27.0-34.0) 24.3 PG (27.0-34.0) Mean Corpuscular Hemoglobin Concent 31.9 % (32.0-36.0) 31.2 % (32.0-36.0) 31.8 % (32.0-36.0) Red Cell Distribution Width 19.7 % (11.6-17.2) 19.4 % (11.6-17.2) 19.7 % (11.6-17.2) Neutrophils (%) (Auto) 92.4 % (16.0-70.0) 91.0 % (16.0-70.0) 85.6 % (16.0-70.0) Lymphocytes (%) (Auto) 3.2 % (9.0-44.0) 2.8 % (9.0-44.0) 5.3 % (9.0-44.0) Neutrophils # (Auto) 18.2 TH/MM3 (1.8-7.7) 23.9 TH/MM3 (1.8-7.7) 20.8 TH/MM3 (1.8-7.7) Lymphocytes # (Auto) 0.6 TH/MM3 (1.0-4.8) 0.7 TH/MM3 (1.0-4.8) Blood Urea Nitrogen 45 MG/DL (7-18) 43 MG/DL (7-18) 32 MG/DL (7-18) Creatinine 1.33 MG/DL (0.50-1.00) 1.24 MG/DL (0.50-1.00) 1.19 MG/DL (0.50-1.00) Random Glucose 285 MG/DL (74-106) 166 MG/DL (74-106) 198 MG/DL (74-106) Sodium Level 132 MEQ/L (136-145) Carbon Dioxide Level 19.3 MEQ/L (21.0-32.0) 18.4 MEQ/L (21.0-32.0) 17.1 MEQ/L (21.0-32.0) Estimat Glomerular Filtration Rate 38 ML/MIN (>89) 41 ML/MIN (>89) 43 ML/MIN (>89) Monocytes # (Auto) 1.6 TH/MM3 (0-0.9) 2.2 TH/MM3 (0-0.9) Chloride Level 108 MEQ/L (98-107) 109 MEQ/L (98-107) Monocytes (%) (Auto) 8.9 % (0.0-8.0) Neutrophils % (Manual) 83 % (16-70) Lymphocytes % 5 % (9-44) Neutrophils # (Manual) 21.6 TH/MM3 (1.8-7.7) Myelocytes 1 % (0-0) Toxic Granulation 1+ (NORMAL) [place] Cells 1+ (NORMAL) Imaging Last Impressions Chest X-Ray 11/05/17 1041 Signed Impressions: Service Date/Time: Sunday, November 05, 2017 10:54 - CONCLUSION: There is a new parenchymal infiltrate in the right lower lung suggestive of pneumonia. Leo Thapa MD Chest CT 11/05/17 0000 Signed Impressions: Service Date/Time: Sunday, November 05, 2017 21:55 - CONCLUSION: 1. Severe multifocal nodular air space consolidation in the lower lobes, new since the prior CT. There is a nodular consolidative mass in the right lower lobe measuring 4 cm. Since these findings are new in the last few weeks, that suggests against a malignant process. An infectious process is most likely. Given the bibasilar distribution aspiration should also be a consideration. 2. Nonacute findings include emphysema with interstitial lung changes, coronary artery calcification and severe atherosclerotic disease of aorta, and aortic valve replacement. 3. There are multiple mildly enlarged lymph nodes in the mediastinum which may be reactive secondary to the airspace process. Richard Ortiz MD Abdomen/Pelvis CT 11/05/17 0000 Signed Impressions: Service Date/Time: Sunday, November 05, 2017 21:55 - CONCLUSION: 1. No acute finding is identified within the abdomen or pelvis on this noncontrast examination is mildly degraded by respiratory motion artifact. The inflammatory changes present in the sigmoid colon on the prior study have resolved. 2. Severe atherosclerotic disease. Richard Ortiz MD PE at Discharge GENERAL: Elderly pleasant female sitting up in bed in NAD. SKIN: Warm and dry. HEENT: Pupils equal and round. MMM. NECK: Supple no tender LAD or JVD. HEART: IRR with 3/6 murmur. LUNGS: Intermittent productive cough throughout exam. R base with crackles and diminished breath sounds. ABDOMEN: +BS. Soft, NT, ND. EXTREMITIES: No LE edema or calf tenderness. NEURO: Awake and alert. PSYCH: Appropriate mood and affect. Pt Condition on Discharge: Fair Discharge Disposition: Hospice/Med Facility Discharge Instructions DIET: Follow Instructions for: As Tolerated, No Restrictions Activities you can perform: Continue Bedrest David Puentes MD Nov 08, 2017 17:20
[2017-11-10] MEDS ORDERED: PHARMACY ORDERED LAB ONE (11:45)
== END 2017-11-08 18:26 | disposition hospice, inpatient (51) | DRG 871 ==
LOC: NEPE 10:06 → NEDA 13:04 → N07B 14:39
PROVIDERS: ADMIT Hospitalist; ATTEND Hospitalist
PROC: 3E0F7GC Introduction of Other Therapeutic Substance into Respiratory Tract, Via Natural or Artificial Opening (ICD-10-PCS; principal; 2017-11-05)
DX: A41.9 Sepsis, unspecified organism (principal); J18.1 Lobar pneumonia, unspecified organism; N17.9 Acute kidney failure, unspecified; J96.11 Chronic respiratory failure with hypoxia; I13.0 Hypertensive heart and chronic kidney disease with heart failure and stage 1 through stage 4 chronic kidney disease, or unspecified chronic kidney disease; A04.71 Enterocolitis due to Clostridium difficile, recurrent; J44.0 Chronic obstructive pulmonary disease with (acute) lower respiratory infection; I50.9 Heart failure, unspecified; I42.9 Cardiomyopathy, unspecified; I69.351 Hemiplegia and hemiparesis following cerebral infarction affecting right dominant side; Y95 Nosocomial condition; Z79.01 Long term (current) use of anticoagulants; Z79.4 Long term (current) use of insulin; Z99.81 Dependence on supplemental oxygen; M19.90 Unspecified osteoarthritis, unspecified site; Z95.2 Presence of prosthetic heart valve; N18.3 Chronic kidney disease, stage 3 (moderate); R41.3 Other amnesia; E78.5 Hyperlipidemia, unspecified; Z90.710 Acquired absence of both cervix and uterus; I48.2 Chronic atrial fibrillation; Z66 Do not resuscitate; Z51.5 Encounter for palliative care; E11.22 Type 2 diabetes mellitus with diabetic chronic kidney disease; B95.62 Methicillin resistant Staphylococcus aureus infection as the cause of diseases classified elsewhere
CPT/HCPCS: 71045; 71250; 74176; 76937; 80048; 80053; 82550; 82948; 83605; 83735; 84484; 85007; 85025; 85027; 86403; 87040; 87070; 87077; 87147; 87186; 87205; 87449; 87493; 87804; 93005; 94150; 94640; 94664; 96361; 96365; 96368; J0456; J0692; J1815; J2405; J3370; J7030; J7050; Q9963